=== PATIENT | female | born 1965 | race Caucasian/White ===

== ENCOUNTER → 2017-02-03 | Outpatient (CLI) | payer OTHER ==
--- NOTE | 2017-02-05 07:35 | MM ---
Reason for exam: screening (asymptomatic). Last mammogram was performed 2 years and 7 months ago. History: Patient is postmenopausal. Excisional biopsy of the right breast, October 14, 2000. Excisional biopsy of the right breast, October 14, 2000. Physical Findings: A clinical breast exam by your physician is recommended on an annual basis and results should be correlated with mammographic findings. MG Screening Mammo w CAD Bilateral CC and MLO view(s) were taken. Prior study comparison: July 11, 2014, left breast MG diagnostic mammo LT w CAD. December 31, 2013, bilateral digital screening mammo w/CAD. There are scattered fibroglandular densities. No significant changes when compared with prior studies. ASSESSMENT: Benign, BI-RAD 2 RECOMMENDATION: Routine screening mammogram of both breasts in 1 year.
== END | disposition home or self-care (01) ==
LOC: RADMAMWWP 13:28
PROVIDERS: ATTEND Family Medicine
DX: Z12.31 Encounter for screening mammogram for malignant neoplasm of breast (principal)

== ENCOUNTER 2017-05-05 22:34 | Emergency (ER) | payer OTHER ==
[2017-05-05] MEDS ORDERED: KETOROLAC 30 MG/ML 1 ML VIAL IVP STA (23:11)
[2017-05-05] MEDS ORDERED: SODIUM CHLORIDE 0.9% 1,000 ML IV STA (23:11)
[2017-05-05] MEDS ORDERED: ONDANSETRON 4 MG/2 ML VIAL IVP STA (23:11)
[2017-05-05] MEDS ORDERED: HYDROmorphone 1 MG/ML 1 ML SYRINGE IVP STA (23:11)
[2017-05-05 23:39] LABS: Basophils % (A) 0 %; CH 32.3; CHCM 34.7; Eosinophils # (A) 0.1 k/uL (0-0.7); Eosinophils % (A) 1 %; HCT 38.9 % (34.0-46.0); HDW 2.49; Luc # (Auto) 0.18; Luc % (Auto) 2; Lymphocytes # (A) 0.9 k/uL (1.0-4.8); Lymphocytes % (A) 12 %; MCH 31.2 pg (25.0-35.0); MCHC 33.4 g/dL (31.0-37.0); MCV 93.3 fL (80.0-100.0); Mean Platelet Volume 8.5; Monocytes # (A) 0.5 k/uL (0-1.0); Monocytes % (A) 6 %; Neutrophils % (A) 79 %; RBC 4.17 m/uL (3.80-5.40); RDW 13.8 % (11.5-15.5); WBC 7.6 k/uL (3.8-10.6); WBC (Perox) 7.74
[2017-05-05 23:49] LABS: ALT 31 U/L (9-52); AST 18 U/L (14-36); Alkaline Phosphatase 90 U/L (38-126); Amylase 40 U/L (30-110); Anion Gap 11 mmol/L; Blood Urea Nitrogen 11 mg/dL (7-17); Calcium 9.1 mg/dL (8.4-10.2); Carbon Dioxide 23 mmol/L (22-30); Chloride 106 mmol/L (98-107); Glucose 168 mg/dL (74-99); Non-African American GFR(MDRD) >60 (>60 ml/min/1.73 sqM); Potassium 3.8 mmol/L (3.5-5.1); Sodium 140 mmol/L (137-145); Total Bilirubin 0.8 mg/dL (0.2-1.3); Total Protein 6.5 g/dL (6.3-8.2)
--- NOTE | 2017-05-06 00:34 | XR ---
EXAM: XR Abdomen, 1 View CLINICAL HISTORY: abdominal pain TECHNIQUE: Frontal supine view of the abdomen/pelvis. COMPARISON: 10/04/15 FINDINGS: Lower thorax: Mild to moderate compression defect of several lower thoracic levels. Gastrointestinal tract: Nonspecific bowel gas pattern. No dilation. Bones/joints: Unremarkable. IMPRESSION: No acute findings or substantial change
[2017-05-06 00:57] VITALS: RESP 18
[2017-05-06 01:26] LABS: Appearance,Urine Clear (Clear); Bacteria,Urine Rare /hpf; Bilirubin,Urine Negative (Negative); Glucose,Urine (UA) Negative (Negative); Ketones,Urine Negative (Negative); Leukocyte Esterase,Urine Small (Negative); Mucus,Urine Rare /hpf; Nitrite,Urine Negative (Negative); PH, Urine 6.5 (5.0-8.0); Particle Count 2589; Protein,Urine Negative (Negative); RBC,Urine 3 /hpf (0-5); Specific Gravity,Urine 1.019 (1.001-1.035); Squamous Epithelial Cell,Urine 2 /hpf (0-4); UA Billing (MACRO vs. MICRO) MICRO; WBC,Urine 1 /hpf (0-5)
[2017-05-06] MEDS ORDERED: ONDANSETRON 4 MG ODT STARTER PACK 2 TAB BTL PO STA (01:53)
--- NOTE | 2017-05-06 01:54 | ED ---
Abdominal Pain HPI - General Chief Complaint: Abdominal Pain Stated Complaint: abdominal pain Time Seen by Provider: 05/05/17 22:53 Source: patient, RN notes reviewed, old records reviewed Mode of arrival: wheelchair Limitations: no limitations - History of Present Illness Initial Comments: This is a 52 year old female with CC of abdominal pain after eating ramen noodles this evening. Patient reports taht she has had cold sweats. She denies chest pain, shortness of breath. She reports she feels nauseated, and the pain is reproducible over her abdomen. She states that she still has her gallbladder. She reports that she has these issues once every few months, she as admitted for similiar symptoms a few months ago. Patient reports history of asthma, anxiety, and depression. Surgical history includes fundolipication. - Related Data Home Medications Medication Instructions Recorded Confirmed Omeprazole [PriLOSEC] 20 mg PO BID 03/22/15 05/05/17 Albuterol Inhaler [Ventolin Hfa 2 puff INHALATION RT-Q6H PRN 04/12/15 05/05/17 Inhaler] Fexofenadine HCl [Lazara Allergy] 180 mg PO DAILY 04/18/15 05/05/17 Fluticasone Nasal [place] [Flonase 2 spray EA NOSTRIL DAILY 10/04/15 05/05/17 Nasal [place]] cloNIDine HCL [Catapres] 0.1 mg PO HS 10/04/15 05/05/17 ARIPiprazole [Abilify] 2 mg PO DAILY 02/16/16 05/05/17 Acetaminophen with Codeine 2 tab PO TID PRN 02/16/16 05/05/17 [Acetaminophen with Codeine #3] Beclomethasone Dipropionate [Qvar 2 puff INHALATION RT-DAILY 02/16/16 05/05/17 80 mcg/puff] DULoxetine HCL [Cymbalta] 90 mg PO DAILY 02/16/16 05/05/17 Montelukast [Singulair] 10 mg PO HS 02/16/16 05/05/17 clonazePAM [KlonoPIN] 0.5 mg PO DAILY 02/16/16 05/05/17 Previous Rx's Medication Instructions Recorded Ondansetron Odt [Zofran Odt] 4 mg PO Q12HR PRN #10 tab 05/06/17 Allergies Allergy/AdvReac Type Severity Reaction Status Date / Time pravastatin Allergy SLURRING Verified 05/05/17 23:16 OF SPEECH environmental Allergy Wheezing Uncoded 03/05/16 08:30 Review of Systems ROS Statement: Those systems with pertinent positive or pertinent negative responses have been documented in the HPI. ROS Other: All systems not noted in ROS Statement are negative. Past Medical History Past Medical History: Asthma, COPD, Deep Vein Thrombosis (DVT), GERD/Reflux, Osteoarthritis (OA) Additional Past Medical History / Comment(s): KIDNEY STONE History of Any Multi-Drug Resistant Organisms: None Reported Past Surgical History: Breast Surgery, Hernia Repair, Tubal Ligation Additional Past Surgical History / Comment(s): RIGHT LUMPECTOMY, LEFT KNEE ARTHROSCOPY . left hand surgery,lasik eye sx 2008, HAD LAP EMILY FUNDLOPLICATION. EGD and colonoscopy, Past Anesthesia/Blood Transfusion Reactions: No Reported Reaction Past Psychological History: Depression, PTSD Smoking Status: Former smoker Past Alcohol Use History: None Reported Past Drug Use History: None Reported - Past Family History Mother Family Medical History: Asthma Additional Family Medical History / Comment(s): from ruptued aa General Exam - General Exam Comments Initial Comments: This is a 52 year old female, patient appaers in moderate discomfort. Limitations: no limitations General appearance: alert, in no apparent distress Head exam: Present: atraumatic, normocephalic, normal inspection Eye exam: Present: normal appearance, PERRL, EOMI. Absent: scleral icterus, conjunctival injection, periorbital swelling ENT exam: Present: normal exam, mucous membranes moist Neck exam: Present: normal inspection. Absent: tenderness, meningismus, lymphadenopathy Respiratory exam: Present: normal lung sounds bilaterally. Absent: respiratory distress, wheezes, rales, rhonchi, stridor Cardiovascular Exam: Present: regular rate, normal rhythm, normal heart sounds. Absent: systolic murmur, diastolic murmur, rubs, gallop, clicks GI/Abdominal exam: Present: soft, tenderness (epigastric tenderness. ), normal bowel sounds. Absent: distended, guarding, rebound, rigid Extremities exam: Present: normal inspection, full ROM, normal capillary refill. Absent: tenderness, pedal edema, joint swelling, calf tenderness Back exam: Present: normal inspection Neurological exam: Present: alert, oriented X3, CN II-XII intact Psychiatric exam: Present: normal affect, normal mood Skin exam: Present: warm, dry, intact, normal color. Absent: rash Course Vital Signs 05/05/17 05/06/17 05/06/17 22:47 00:06 00:56 Temperature 99.3 F Pulse Rate 65 78 91 Respiratory 20 16 18 Rate Blood Pressure 155/83 136/73 117/68 O2 Sat by Pulse 98 95 92 L Oximetry 05/06/17 02:00 Temperature 98 F Pulse Rate 84 Respiratory 18 Rate Blood Pressure 123/61 O2 Sat by Pulse Oximetry Medical Decision Making - Medical Decision Making This is a 52 year old female with CC of abdominal pain after eating ramen noodles this evening. Patient reports taht she has had cold sweats. She denies chest pain, shortness of breath. She reports she feels nauseated, and the pain is reproducible over her abdomen. Patient has epigatric tenderness, patient has had no vomiting, and denies diarrhea. Patient given IV fluids, pain medication, and lab work obtained. Patient lab work reviewed, negative for any acute process. Urine specific gravity within normal limits, no signs of severe dehydration. Patient was reevaluated and feeling better. KUB obtained and showed normal gas pattern. Patient will be discharged with nausea medication, and I believe her symptoms are related to indigestion. Patient may have food intolerance to wheat. Patient will be discharged and advised to follow up with PCP. Return parameters discussed. - Lab Data Result diagrams: 05/05/17 23:17 05/05/17 23:17 Lab Results 05/05/17 05/05/17 05/05/17 Range/Units 23:17 23:17 23:17 WBC 7.6 (3.8-10.6) k/uL RBC 4.17 (3.80-5.40) m/uL Hgb 13.0 (11.4-16.0) gm/dL Hct 38.9 (34.0-46.0) % MCV 93.3 (80.0-100.0) fL MCH 31.2 (25.0-35.0) pg MCHC 33.4 (31.0-37.0) g/dL RDW 13.8 (11.5-15.5) % Plt Count 181 (150-450) k/uL Neutrophils % 79 % Lymphocytes % 12 % Monocytes % 6 % Eosinophils % 1 % Basophils % 0 % Neutrophils # 6.0 (1.3-7.7) k/uL Lymphocytes # 0.9 L (1.0-4.8) k/uL Monocytes # 0.5 (0-1.0) k/uL Eosinophils # 0.1 (0-0.7) k/uL Basophils # 0.0 (0-0.2) k/uL Sodium 140 (137-145) mmol/L Potassium 3.8 (3.5-5.1) mmol/L Chloride 106 (98-107) mmol/L Carbon Dioxide 23 (22-30) mmol/L Anion Gap 11 mmol/L BUN 11 (7-17) mg/dL Creatinine 0.70 (0.52-1.04) mg/dL Est GFR (MDRD) Af Amer >60 (>60 ml/min/1.73 sqM) Est GFR (MDRD) Non-Af >60 (>60 ml/min/1.73 sqM) Glucose 168 H (74-99) mg/dL Plasma Lactic Acid Chinedu 0.9 (0.7-2.0) mmol/L Calcium 9.1 (8.4-10.2) mg/dL Total Bilirubin 0.8 (0.2-1.3) mg/dL AST 18 (14-36) U/L ALT 31 (9-52) U/L Alkaline Phosphatase 90 (38-126) U/L Total Protein 6.5 (6.3-8.2) g/dL Albumin 4.0 (3.5-5.0) g/dL Amylase 40 (30-110) U/L Lipase 75 (23-300) U/L Urine Color Urine Appearance (Clear) Urine pH (5.0-8.0) Ur Specific [place] (1.001-1.035) Urine Protein (Negative) Urine Glucose (UA) (Negative) Urine Ketones (Negative) Urine Blood (Negative) Urine Nitrite (Negative) Urine Bilirubin (Negative) Urine Urobilinogen (<2.0) mg/dL Ur Leukocyte Esterase (Negative) Urine RBC (0-5) /hpf Urine WBC (0-5) /hpf Ur Squamous Epith Cells (0-4) /hpf Urine Bacteria (None) /hpf Urine Mucus (None) /hpf 08/15/17 Range/Units 01:01 WBC (3.8-10.6) k/uL RBC (3.80-5.40) m/uL Hgb (11.4-16.0) gm/dL Hct (34.0-46.0) % MCV (80.0-100.0) fL MCH (25.0-35.0) pg MCHC (31.0-37.0) g/dL RDW (11.5-15.5) % Plt Count (150-450) k/uL Neutrophils % % Lymphocytes % % Monocytes % % Eosinophils % % Basophils % % Neutrophils # (1.3-7.7) k/uL Lymphocytes # (1.0-4.8) k/uL Monocytes # (0-1.0) k/uL Eosinophils # (0-0.7) k/uL Basophils # (0-0.2) k/uL Sodium (137-145) mmol/L Potassium (3.5-5.1) mmol/L Chloride (98-107) mmol/L Carbon Dioxide (22-30) mmol/L Anion Gap mmol/L BUN (7-17) mg/dL Creatinine (0.52-1.04) mg/dL Est GFR (MDRD) Af Amer (>60 ml/min/1.73 sqM) Est GFR (MDRD) Non-Af (>60 ml/min/1.73 sqM) Glucose (74-99) mg/dL Plasma Lactic Acid [place] (0.7-2.0) mmol/L Calcium (8.4-10.2) mg/dL Total Bilirubin (0.2-1.3) mg/dL AST (14-36) U/L ALT (9-52) U/L Alkaline Phosphatase (38-126) U/L Total Protein (6.3-8.2) g/dL Albumin (3.5-5.0) g/dL Amylase (30-110) U/L Lipase (23-300) U/L Urine Color Yellow Urine Appearance Clear (Clear) Urine pH 6.5 (5.0-8.0) Ur Specific [place] 1.019 (1.001-1.035) Urine Protein Negative (Negative) Urine Glucose (UA) Negative (Negative) Urine Ketones Negative (Negative) Urine Blood Negative (Negative) Urine Nitrite Negative (Negative) Urine Bilirubin Negative (Negative) Urine Urobilinogen 3.0 (<2.0) mg/dL Ur Leukocyte Esterase Small H (Negative) Urine RBC 3 (0-5) /hpf Urine WBC 1 (0-5) /hpf Ur Squamous Epith Cells 2 (0-4) /hpf Urine Bacteria Rare H (None) /hpf Urine Mucus Rare H (None) /hpf - Radiology Data Radiology results: report reviewed KUB has normal bowel gas pattern. Disposition Clinical Impression: Abdominal pain, Nausea, Gastroenteritis Disposition: HOME SELF-CARE Condition: Good Instructions: Abdominal Pain (ED) Additional Instructions: Advised to follow up with primary care physician. Patient is a clear liquids and bland diet for the next 24 hours. Return to the emergency department if any alarming signs or symptoms occur. Prescriptions: Ondansetron Odt [Zofran Odt] 4 mg PO Q12HR PRN #10 tab PRN Reason: Nausea Referrals: Ariella Espana DO [Primary Care Provider] - 1-2 days Time of Disposition: 01:52
[2017-05-06 02:01] VITALS: BP 123/61; PULSE 84; TEMP 98
== END 2017-05-06 02:00 | disposition home or self-care (01) ==
LOC: EC 22:34
DX: K52.9 Noninfective gastroenteritis and colitis, unspecified (principal); J44.9 Chronic obstructive pulmonary disease, unspecified; K21.9 Gastro-esophageal reflux disease without esophagitis; F32.9 Major depressive disorder, single episode, unspecified; Z87.442 Personal history of urinary calculi; Z98.890 Other specified postprocedural states; Z88.8 Allergy status to other drugs, medicaments and biological substances; Z91.09 Other allergy status, other than to drugs and biological substances; Z79.51 Long term (current) use of inhaled steroids; Z87.891 Personal history of nicotine dependence; Z79.899 Other long term (current) drug therapy
CPT/HCPCS: 36415; 80053; 82150; 83605; 83690; 85025; 81001; 87040; 74000; 99284; 96374; 96375 ×2; 96361 ×2; J2405; J1885; J1170; S0119

== ENCOUNTER 2018-12-23 19:10 | Emergency (ER) | payer MEDICARE, OTHER ==
[2018-12-23 19:38] VITALS: TEMP 98.5
[2018-12-23] MEDS ORDERED: ONDANSETRON 4 MG/2 ML VIAL IVP STA ×2 (20:02→22:17)
[2018-12-23] MEDS ORDERED: MORPHINE SULFATE 2 MG/ML SYRINGE IVP STA (20:35)
[2018-12-23 21:12] LABS: Basophils % (A) 0 %; Eosinophils # (A) 0.1 k/uL (0-0.7); Eosinophils % (A) 1 %; HCT 42.6 % (34.0-46.0); HGB 14.8 gm/dL (11.4-16.0); Lymphocytes # (A) 1.1 k/uL (1.0-4.8); Lymphocytes % (A) 16 %; MCH 30.8 pg (25.0-35.0); MCHC 34.8 g/dL (31.0-37.0); MCV 88.7 fL (80.0-100.0); Mean Platelet Volume 8.9; Monocytes # (A) 0.4 k/uL (0-1.0); Monocytes % (A) 6 %; Neutrophils # (A) 5.2 k/uL (1.3-7.7); Neutrophils % (A) 76 %; Platelet Count 226 k/uL (150-450); RDW 14.4 % (11.5-15.5); WBC 6.8 k/uL (3.8-10.6)
[2018-12-23 21:14] LABS: ALT 36 U/L (9-52); AST 29 U/L (14-36); Albumin 4.3 g/dL (3.5-5.0); Alkaline Phosphatase 94 U/L (38-126); Anion Gap 10 mmol/L; Blood Urea Nitrogen 10 mg/dL (7-17); Calcium 10.1 mg/dL (8.4-10.2); Carbon Dioxide 22 mmol/L (22-30); Chloride 110 mmol/L (98-107); Glucose 148 mg/dL (74-99); Lipase 85 U/L (23-300); Potassium 4.1 mmol/L (3.5-5.1); Sodium 142 mmol/L (137-145); Total Bilirubin 0.8 mg/dL (0.2-1.3); Total Protein 7.1 g/dL (6.3-8.2)
[2018-12-23] MEDS ORDERED: SODIUM CHLORIDE 0.9% 1,000 ML IV STA (21:37)
--- NOTE | 2018-12-23 22:12 | US ---
EXAM: US Abdomen Complete CLINICAL HISTORY: ITS.REASON US Reason: pain with greasy food, n/v TECHNIQUE: Real-time ultrasound of the abdomen (complete) with image documentation. COMPARISON: None FINDINGS: Liver: Measures 17.7 cm, mildly enlarged. Increased echogenicity is suggestive of hepatic steatosis. No focal lesion. Portal vein: Patent with normal direction of flow. Gallbladder: Normal. No wall thickening or pericholecystic fluid. No stone or sludge. Negative sonographic Lemon's sign. Artifact versus echogenicities outside of the gallbladder neck. Biliary tree: No abnormal dilatation. Common bile duct measures 3.3 mm. Pancreas: Pancreas is not well-visualized on this exam. Right kidney: Measures 9.7 cm in length. No hydronephrosis or stone. No mass. Peritoneal space: Normal. No free fluid. IMPRESSION: 1. Mild hepatomegaly with hepatic steatosis. 2. No acute abnormality.
--- NOTE | 2018-12-23 23:14 | ED ---
Nausea/Vomiting/Diarrhea HPI - General Source: patient, family Mode of arrival: ambulatory Limitations: no limitations <Lucille Calabrese - Last Filed: 12/24/18 14:45> <Danika Tapia - Last Filed: 12/24/18 21:49> - General Chief complaint: Nausea/Vomiting/Diarrhea Stated complaint: Vomiting/chills Time Seen by Provider: 12/23/18 20:01 - History of Present Illness Initial comments: 53-year-old female who denies significant past history presenting today for chief complaint of nausea vomiting x 1 day. Patient states that she experiences nausea vomiting diarrhea 3-4 times a year. She states she has been hospitalized for these episodes. Patient states that is mostly vomiting and nausea. She denies chest distress of breath, or dyspnea on exertion. Patient denies history of alcoholism, liver or kidney disease she denies diabetes history of myocardial infarction or CVA. Patient denies anticoagulation therapy. She has history of HIV or atrial fibrillation. She denies history of cancer. Patient states she was a previous smoker however quit in 2011. Patient states her symptoms today are identical to previous episodes of vomiting and nausea. She states the last time was when she was hospitalized in [place]. Patient does smoke marijuana. Patient denies any hematemesis melena hematochezia. Patient states her symptoms today began after eating greasy pizza. She states this episode is mild in comparison with others and presented for evaluation and IV fluids. (Lucille Calabrese) - Related Data Home Medications Medication Instructions Recorded Confirmed Albuterol Inhaler [Ventolin Hfa 2 puff INHALATION RT-Q6H PRN 04/12/15 12/23/18 Inhaler] Montelukast [Singulair] 10 mg PO HS 02/16/16 12/23/18 DULoxetine HCL [Cymbalta] 60 mg PO DAILY 12/23/18 12/23/18 Ergocalciferol (Vitamin D2) 50,000 unit PO Q7D 12/23/18 12/23/18 [Vitamin D2] Mirtazapine [Remeron] 15 mg PO HS 12/23/18 12/23/18 Allergies Allergy/AdvReac Type Severity Reaction Status Date / Time pravastatin AdvReac SLURRING Verified 12/23/18 20:14 OF SPEECH environmental Allergy Wheezing Uncoded 12/23/18 20:15 Review of Systems ROS Other: All systems not noted in ROS Statement are negative. <Lucille Calabrese - Last Filed: 12/24/18 14:45> ROS Other: All systems not noted in ROS Statement are negative. <Danika Tapia P - Last Filed: 12/24/18 21:49> ROS Statement: Those systems with pertinent positive or pertinent negative responses have been documented in the HPI. Past Medical History Past Medical History: Asthma, COPD, Deep Vein Thrombosis (DVT), GERD/Reflux, Osteoarthritis (OA) Additional Past Medical History / Comment(s): KIDNEY STONE History of Any Multi-Drug Resistant Organisms: None Reported Past Surgical History: Breast Surgery, Hernia Repair, Tubal Ligation Additional Past Surgical History / Comment(s): RIGHT LUMPECTOMY, LEFT KNEE ARTHROSCOPY . left hand surgery,lasik eye sx 2008, HAD LAP EMILY FUNDLOPLICATION. EGD and colonoscopy, Past Anesthesia/Blood Transfusion Reactions: No Reported Reaction Past Psychological History: Depression, PTSD Smoking Status: Former smoker Past Alcohol Use History: None Reported Past Drug Use History: None Reported - Past Family History Mother Family Medical History: Asthma Additional Family Medical History / Comment(s): from ruptued aa <Lucille Calabrese - Last Filed: 12/24/18 14:45> General Exam Limitations: no limitations <Lucille Calabrese - Last Filed: 12/24/18 14:45> - General Exam Comments Initial Comments: General: The patient is awake and alert, in no distress Eye: +3 mm pupils are equal, round and reactive to light, extra-ocular movements are intact. No nystagmus. There is normal conjunctiva bilaterally. No signs of icterus. Ears, nose, mouth and throat: There are moist mucous membranes and no oral lesions. Neck: The neck is supple, there is no tenderness or JVD. Cardiovascular: There is a regular rate and rhythm. No murmur, rub or gallop is appreciated. Respiratory: Lungs are clear to auscultation, respirations are non-labored, breath sounds are equal. No wheezes, stridor, rales, or rhonchi. Gastrointestinal: Soft, non-distended, diffusely tender upper abdomen without masses or organomegaly noted. There is no rebound or guarding present. No CVA tenderness. Bowel sounds are unremarkable. Musculoskeletal: Normal ROM, no tenderness. Strength 5/5. Sensation intact. Radial pulses equal bilaterally 2+. Neurological: A&O x 3. CN II-XII intact, There are no obvious motor or sensory deficits. Coordination appears grossly intact. Speech is normal. Skin: Skin is warm and dry and no rashes or lesions are noted. Psychiatric: Cooperative, appropriate mood & affect, normal judgment. (Lucille Calabrese) Course Vital Signs 12/23/18 12/23/18 19:34 23:38 Temperature 98.5 F Pulse Rate 59 L 90 Respiratory 28 H 18 Rate Blood Pressure 146/78 139/81 O2 Sat by Pulse 100 Oximetry Medical Decision Making - Lab Data Result diagrams: 12/23/18 20:45 12/23/18 20:45 <Lucille Calabrese - Last Filed: 12/24/18 14:45> - Lab Data Result diagrams: 12/23/18 20:45 12/23/18 20:45 <Danika Tapia - Last Filed: 12/24/18 21:49> - Medical Decision Making She states she has significant relief of nausea and vomiting with zofran and fluids. Patient said no additional episodes of dry heaving or vomiting while in the emergency department. Patient was given IV fluids. Patient laboratory studies are unremarkable patient has moist mucus membranes. Patient states that she has had this exact symptoms set before and states she has had multiple evaluations with physicians and they dont know the cause. DDX cyclic nausea and vomiting. Possibly due to marijuana use. After discussing the case with attending provider Dr. Tapia we feel patient is stable for discharge without patient symptomatic treatment. Pt has home ODT zofran. Pt is agreeable with discharge with return parameters for persistent or worsening symptoms. (Lucille Calabrese) I was available for consultation in the emergency department. The history and physical exam were done by the midlevel provider. I was consulted for this patient's care. I reviewed the case with the midlevel provider and based on their presentation of the patient, I agree with the assessment, medical decision making and plan of care as documented. (Danika Tapia) - Lab Data Lab Results 12/23/18 12/23/18 Range/Units 20:45 20:45 WBC 6.8 (3.8-10.6) k/uL RBC 4.80 (3.80-5.40) m/uL Hgb 14.8 (11.4-16.0) gm/dL Hct 42.6 (34.0-46.0) % MCV 88.7 (80.0-100.0) fL MCH 30.8 (25.0-35.0) pg MCHC 34.8 (31.0-37.0) g/dL RDW 14.4 (11.5-15.5) % Plt Count 226 (150-450) k/uL Neutrophils % 76 % Lymphocytes % 16 % Monocytes % 6 % Eosinophils % 1 % Basophils % 0 % Neutrophils # 5.2 (1.3-7.7) k/uL Lymphocytes # 1.1 (1.0-4.8) k/uL Monocytes # 0.4 (0-1.0) k/uL Eosinophils # 0.1 (0-0.7) k/uL Basophils # 0.0 (0-0.2) k/uL Sodium 142 (137-145) mmol/L Potassium 4.1 (3.5-5.1) mmol/L Chloride 110 H (98-107) mmol/L Carbon Dioxide 22 (22-30) mmol/L Anion Gap 10 mmol/L BUN 10 (7-17) mg/dL Creatinine 0.79 (0.52-1.04) mg/dL Est GFR (CKD-EPI)AfAm >90 (>60 ml/min/1.73 sqM) Est GFR (CKD-EPI)NonAf 85 (>60 ml/min/1.73 sqM) Glucose 148 H (74-99) mg/dL Calcium 10.1 (8.4-10.2) mg/dL Total Bilirubin 0.8 (0.2-1.3) mg/dL AST 29 (14-36) U/L ALT 36 (9-52) U/L Alkaline Phosphatase 94 (38-126) U/L Total Protein 7.1 (6.3-8.2) g/dL Albumin 4.3 (3.5-5.0) g/dL Lipase 85 (23-300) U/L Disposition Is patient prescribed a controlled substance at d/c from ED?: No Time of Disposition: 23:34 <Lucille Calabrese - Last Filed: 12/24/18 14:45> <Hans Tapiassica P - Last Filed: 12/24/18 21:49> Clinical Impression: Nausea vomiting and diarrhea Disposition: HOME SELF-CARE Condition: Good Instructions (If sedation given, give patient instructions): Acute Nausea and Vomiting (ED), Acute Diarrhea (ED) Additional Instructions: Please use medication as discussed. Please follow-up with family doctor in the next 2 days of symptoms have not improved. Please return to emergency room if the symptoms increase or worsen or for any other concerns. Referrals: Ariella Espana DO [Primary Care Provider] - 1-2 days
[2018-12-23] MEDS ORDERED: METOCLOPRAMIDE 5 MG/ML 2 ML VIAL IVP STA (23:19)
[2018-12-23] MEDS ORDERED: diphenhydrAMINE 50 MG/ML 1 ML VIAL IVP STA (23:19)
[2018-12-24 00:04] VITALS: BP 139/81; PULSE 90; RESP 18
== END 2018-12-24 00:10 | disposition home or self-care (01) ==
LOC: EC 19:10
DX: R11.2 Nausea with vomiting, unspecified (principal); R19.7 Diarrhea, unspecified; R68.83 Chills (without fever); J44.9 Chronic obstructive pulmonary disease, unspecified; F32.9 Major depressive disorder, single episode, unspecified; Z79.899 Other long term (current) drug therapy; Z88.8 Allergy status to other drugs, medicaments and biological substances; Z91.09 Other allergy status, other than to drugs and biological substances; Z87.891 Personal history of nicotine dependence
CPT/HCPCS: 36415; 80053; 83690; 85025; 76705; 99284; 96374; 96376; 96361 ×2; J2405

== ENCOUNTER 2018-12-29 03:44 | Emergency (ER) | payer MEDICARE, OTHER ==
[2018-12-29 03:57] VITALS: TEMP 97.6
[2018-12-29] MEDS ORDERED: ONDANSETRON 4 MG/2 ML VIAL IVP STA ×2 (03:59→07:06)
[2018-12-29] MEDS ORDERED: SODIUM CHLORIDE 0.9% 1,000 ML IV ONE ×2 (04:39→07:05)
[2018-12-29 05:03] LABS: Basophils % (A) 0 %; Eosinophils # (A) 0.1 k/uL (0-0.7); Eosinophils % (A) 1 %; HCT 45.3 % (34.0-46.0); HGB 15.7 gm/dL (11.4-16.0); Lymphocytes # (A) 1.5 k/uL (1.0-4.8); Lymphocytes % (A) 12 %; MCH 30.7 pg (25.0-35.0); MCHC 34.7 g/dL (31.0-37.0); MCV 88.5 fL (80.0-100.0); Mean Platelet Volume 8.9; Monocytes # (A) 0.6 k/uL (0-1.0); Monocytes % (A) 5 %; Neutrophils # (A) 10.6 k/uL (1.3-7.7); Neutrophils % (A) 82 %; Platelet Count 226 k/uL (150-450); RBC 5.12 m/uL (3.80-5.40); RDW 13.1 % (11.5-15.5); WBC 12.9 k/uL (3.8-10.6)
--- NOTE | 2018-12-29 05:14 | ED ---
Nausea/Vomiting/Diarrhea HPI - General Chief complaint: Nausea/Vomiting/Diarrhea Stated complaint: Nausea vomiting Time Seen by Provider: 12/29/18 03:59 Source: patient Mode of arrival: ambulatory Limitations: no limitations - History of Present Illness MD complaint: nausea, vomiting -: hour(s) Description of Vomiting: food contents Associated Abdominal Pain: Yes Location: diffuse Radiation: none Severity: mild Quality: cramping Consistency: intermittent Improves with: none Worsens with: none Associated Symptoms: denies other symptoms - Related Data Home Medications Medication Instructions Recorded Confirmed Albuterol Inhaler [Ventolin Hfa 2 puff INHALATION RT-Q6H PRN 04/12/15 12/29/18 Inhaler] Montelukast [Singulair] 10 mg PO HS 02/16/16 12/29/18 DULoxetine HCL [Cymbalta] 60 mg PO DAILY 12/23/18 12/29/18 Ergocalciferol (Vitamin D2) 50,000 unit PO OSCAR 12/23/18 12/29/18 [Vitamin D2] Mirtazapine [Remeron] 15 mg PO HS 12/23/18 12/29/18 Previous Rx's Medication Instructions Recorded Ondansetron Odt [Zofran ODT] 4 mg PO Q8HR PRN #10 tab 12/29/18 Allergies Allergy/AdvReac Type Severity Reaction Status Date / Time pravastatin AdvReac SLURRING Verified 12/29/18 08:00 OF SPEECH environmental Allergy Wheezing Uncoded 12/29/18 03:57 Review of Systems ROS Statement: Those systems with pertinent positive or pertinent negative responses have been documented in the HPI. ROS Other: All systems not noted in ROS Statement are negative. Constitutional: Denies: fever, chills, weakness Respiratory: Denies: cough, dyspnea Cardiovascular: Denies: chest pain, palpitations, edema, syncope Gastrointestinal: Reports: abdominal pain, nausea, vomiting. Denies: diarrhea, constipation, melena, hematochezia Genitourinary: Denies: dysuria, hematuria Musculoskeletal: Denies: back pain Skin: Denies: rash Neurological: Denies: headache, weakness, numbness Past Medical History Past Medical History: Asthma, COPD, Deep Vein Thrombosis (DVT), GERD/Reflux, Osteoarthritis (OA) Additional Past Medical History / Comment(s): KIDNEY STONE History of Any Multi-Drug Resistant Organisms: None Reported Past Surgical History: Breast Surgery, Hernia Repair, Tubal Ligation Additional Past Surgical History / Comment(s): RIGHT LUMPECTOMY, LEFT KNEE ARTHROSCOPY . left hand surgery,lasik eye sx 2008, HAD LAP EMILY FUNDLOPLICATION. EGD and colonoscopy, Past Anesthesia/Blood Transfusion Reactions: No Reported Reaction Past Psychological History: Depression, PTSD Smoking Status: Former smoker Past Alcohol Use History: None Reported Past Drug Use History: None Reported - Past Family History Mother Family Medical History: Asthma Additional Family Medical History / Comment(s): from ruptued aa General Exam Limitations: no limitations General appearance: alert, in no apparent distress Head exam: Present: atraumatic, normocephalic Eye exam: Present: normal appearance. Absent: scleral icterus, conjunctival injection ENT exam: Present: normal oropharynx Neck exam: Present: normal inspection Respiratory exam: Present: normal lung sounds bilaterally. Absent: respiratory distress, wheezes, rales, rhonchi, stridor Cardiovascular Exam: Present: regular rate, normal rhythm, normal heart sounds Course Vital Signs 12/29/18 03:54 Temperature 97.6 F Pulse Rate 76 Respiratory 20 Rate Blood Pressure 147/93 O2 Sat by Pulse 97 Oximetry Medical Decision Making - Lab Data Result diagrams: 12/29/18 04:17 12/29/18 04:17 Lab Results 12/29/18 12/29/18 12/29/18 Range/Units 04:17 04:17 06:51 WBC 12.9 H (3.8-10.6) k/uL RBC 5.12 (3.80-5.40) m/uL Hgb 15.7 (11.4-16.0) gm/dL Hct 45.3 (34.0-46.0) % MCV 88.5 (80.0-100.0) fL MCH 30.7 (25.0-35.0) pg MCHC 34.7 (31.0-37.0) g/dL RDW 13.1 (11.5-15.5) % Plt Count 226 (150-450) k/uL Neutrophils % 82 % Lymphocytes % 12 % Monocytes % 5 % Eosinophils % 1 % Basophils % 0 % Neutrophils # 10.6 H (1.3-7.7) k/uL Lymphocytes # 1.5 (1.0-4.8) k/uL Monocytes # 0.6 (0-1.0) k/uL Eosinophils # 0.1 (0-0.7) k/uL Basophils # 0.0 (0-0.2) k/uL Sodium 138 (137-145) mmol/L Potassium 3.7 (3.5-5.1) mmol/L Chloride 106 (98-107) mmol/L Carbon Dioxide 19 L (22-30) mmol/L Anion Gap 13 mmol/L BUN 7 (7-17) mg/dL Creatinine 0.78 (0.52-1.04) mg/dL Est GFR (CKD-EPI)AfAm >90 (>60 ml/min/1.73 sqM) Est GFR (CKD-EPI)NonAf 86 (>60 ml/min/1.73 sqM) Glucose 153 H (74-99) mg/dL Calcium 9.8 (8.4-10.2) mg/dL Total Bilirubin 0.9 (0.2-1.3) mg/dL AST 28 (14-36) U/L ALT 41 (9-52) U/L Alkaline Phosphatase 100 (38-126) U/L Total Protein 7.0 (6.3-8.2) g/dL Albumin 4.4 (3.5-5.0) g/dL Amylase 80 (30-110) U/L Lipase 351 H (23-300) U/L Urine Color Light Yellow Urine Appearance Cloudy H (Clear) Urine pH 7.5 (5.0-8.0) Ur Specific [place] 1.013 (1.001-1.035) Urine Protein Negative (Negative) Urine Glucose (UA) Negative (Negative) Urine Ketones Trace H (Negative) Urine Blood Negative (Negative) Urine Nitrite Negative (Negative) Urine Bilirubin Negative (Negative) Urine Urobilinogen <2.0 (<2.0) mg/dL Ur Leukocyte Esterase Negative (Negative) Urine RBC 1 (0-5) /hpf Urine WBC <1 (0-5) /hpf Ur Squamous Epith Cells 4 (0-4) /hpf Urine Mucus Rare H (None) /hpf Disposition Clinical Impression: Abdominal pain Disposition: HOME SELF-CARE Instructions (If sedation given, give patient instructions): Acute Nausea and Vomiting (ED) Prescriptions: Ondansetron Odt [Zofran ODT] 4 mg PO Q8HR PRN #10 tab PRN Reason: Nausea Is patient prescribed a controlled substance at d/c from ED?: No Referrals: Ariella Espana DO [Primary Care Provider] - 1-2 days
[2018-12-29 05:23] LABS: ALT 41 U/L (9-52); AST 28 U/L (14-36); Albumin 4.4 g/dL (3.5-5.0); Alkaline Phosphatase 100 U/L (38-126); Amylase 80 U/L (30-110); Anion Gap 13 mmol/L; Blood Urea Nitrogen 7 mg/dL (7-17); Calcium 9.8 mg/dL (8.4-10.2); Carbon Dioxide 19 mmol/L (22-30); Chloride 106 mmol/L (98-107); Glucose 153 mg/dL (74-99); Lipase 351 U/L (23-300); Potassium 3.7 mmol/L (3.5-5.1); Sodium 138 mmol/L (137-145); Total Bilirubin 0.9 mg/dL (0.2-1.3)
[2018-12-29] MEDS ORDERED: MORPHINE SULFATE 4 MG/ML SYRINGE IV STA (07:06)
[2018-12-29 07:22] LABS: Appearance,Urine Cloudy (Clear); Bilirubin,Urine Negative (Negative); Blood,Urine Negative (Negative); Color,Urine Light Yellow; Glucose,Urine (UA) Negative (Negative); Ketones,Urine Trace (Negative); Leukocyte Esterase,Urine Negative (Negative); Mucus,Urine Rare /hpf; Nitrite,Urine Negative (Negative); PH, Urine 7.5 (5.0-8.0); Protein,Urine Negative (Negative); RBC,Urine 1 /hpf (0-5); Specific Gravity,Urine 1.013 (1.001-1.035); Squamous Epithelial Cell,Urine 4 /hpf (0-4); Urobilinogen,Urine <2.0 mg/dL (<2.0); WBC,Urine <1 /hpf (0-5)
[2018-12-29 10:28] VITALS: BP 104/57; PULSE 78; RESP 18
== END 2018-12-29 10:26 | disposition home or self-care (01) ==
LOC: EC 03:44
DX: R10.9 Unspecified abdominal pain (principal); R11.2 Nausea with vomiting, unspecified; J44.9 Chronic obstructive pulmonary disease, unspecified; F32.9 Major depressive disorder, single episode, unspecified; F43.10 Post-traumatic stress disorder, unspecified; Z86.718 Personal history of other venous thrombosis and embolism; Z87.442 Personal history of urinary calculi; Z87.891 Personal history of nicotine dependence; Z98.51 Tubal ligation status; Z98.890 Other specified postprocedural states; Z79.899 Other long term (current) drug therapy; Z88.8 Allergy status to other drugs, medicaments and biological substances; Z91.048 Other nonmedicinal substance allergy status
CPT/HCPCS: 36415; 80053; 82150; 83690; 85025; 81001; 99284; 96374; 96375; 96376; 96361 ×5; J2270; J2405

== ENCOUNTER 2019-01-19 08:39 | Day surgery (SDC) | payer MEDICARE ==
[2019-01-14 11:47] VITALS: BMI 36.6
[~2019-01-19 08:39] MED LIST: LACTATED RINGERS 1,000 ML IV SCH; LIDOCAINE 1% 20 ML VIAL (10MG/ML) FOR IV START INTRADERMA PRN
[2019-01-19 08:54] VITALS: RESP 16; TEMP 97.9
[2019-01-19] MEDS ORDERED: LIDOCAINE 1% INJ 10MG/ML (20 ML MDV) ONE (09:05)
[2019-01-19] MEDS ORDERED: PROPOFOL 10 MG/ML 20 ML VIAL IV ONE (09:05)
--- NOTE | 2019-01-19 09:09 | P.GSHP ---
History of Present Illness H&P Date: 01/19/19 Chief Complaint: Epigastric pain This a 53-year-old female who presents today for EGD. She's had complaints of epigastric pain. She presents today for EGD to evaluate for gastritis. Past Medical History Past Medical History: Asthma, COPD, Deep Vein Thrombosis (DVT), GERD/Reflux, Osteoarthritis (OA), Sleep Apnea/CPAP/BIPAP Additional Past Medical History / Comment(s): IBS,fatty liver,"problem with pancreas and checking if the gallbladder needs to be removed",KIDNEY STONE,uses cpap History of Any Multi-Drug Resistant Organisms: None Reported Past Surgical History: Breast Surgery, Hernia Repair, Tubal Ligation Additional Past Surgical History / Comment(s): RIGHT LUMPECTOMY, LEFT KNEE ARTHROSCOPY . left hand surgery,lasik eye sx 2008, HAD LAP EMILY FUNDLOPLICATION. EGD and colonoscopy, Past Anesthesia/Blood Transfusion Reactions: No Reported Reaction Additional Past Anesthesia/Blood Transfusion Reaction / Comment(s): no hx blood transfusion Smoking Status: Former smoker - Past Family History Mother Family Medical History: Asthma Additional Family Medical History / Comment(s): from ruptued aa Medications and Allergies Home Medications Medication Instructions Recorded Confirmed Type Albuterol Inhaler [Ventolin Hfa 2 puff INHALATION RT-Q6H PRN 04/12/15 01/19/19 History Inhaler] DULoxetine HCL [Cymbalta] 60 mg PO QAM 12/23/18 01/19/19 History Ergocalciferol (Vitamin D2) 50,000 unit PO OSCAR 12/23/18 01/19/19 History [Vitamin D2] Mirtazapine [Remeron] 15 mg PO HS 12/23/18 01/19/19 History Budesonide [Pulmicort Flexhaler] 2 puff INHALATION BID 01/14/19 01/19/19 History Montelukast Sodium [Singulair] 10 mg PO QAM 01/14/19 01/19/19 History Pantoprazole [Protonix] 40 mg PO DAILY 01/14/19 01/19/19 History Allergies Allergy/AdvReac Type Severity Reaction Status Date / Time pravastatin AdvReac SLURRING Verified 01/19/19 08:49 OF SPEECH environmental Allergy Wheezing Uncoded 01/19/19 08:49 Surgical - Exam Vital Signs Temp Pulse Resp BP Pulse Ox 97.9 F 61 16 131/72 98 01/19/19 08:52 01/19/19 08:52 01/19/19 08:52 01/19/19 08:52 01/19/19 08:52 - General well developed, well nourished, no distress - Eyes PERRL - ENT normal pinna - Neck no masses - Respiratory normal expansion - Cardiovascular Rhythm: regular - Abdomen Abdomen: soft, non tender Assessment and Plan Assessment: Epigastric pain, gastritis. We'll perform EGD.
--- NOTE | 2019-01-19 09:17 | P.OP ---
Date of Procedure: 01/19/19 Preoperative Diagnosis: Epigastric pain Postoperative Diagnosis: Mild antral gastritis Procedure(s) Performed: EGD Anesthesia: MAC Surgeon: Graeme Stewart Pathology: other (Antrum) Condition: stable Disposition: PACU Description of Procedure: The patient's placed on the endoscopy table in the lateral position. She received IV sedation. The gastroscope placed oropharynx and passed into the esophagus and into the stomach. Scope was then placed through the pylorus. First and second portion of the duodenum appeared normal. Scope was then brought back the antrum and this appeared mildly inflamed. A biopsies performed. Scope was unretroflexed and remainder of the stomach appeared normal. There was no significant hiatal hernia. The GE junction was at 40 cm. The distal esophagus appeared normal. The proximal esophagus. Appeared normal. The scope was withdrawn for patient.
[2019-01-19 09:38] VITALS: BP 99/65; PULSE 59
== END 2019-01-19 09:50 | disposition home or self-care (01) ==
LOC: ORWHC2ENDO 08:39
PROVIDERS: ATTEND Surgery
DX: K29.50 Unspecified chronic gastritis without bleeding (principal); J44.9 Chronic obstructive pulmonary disease, unspecified; Z86.718 Personal history of other venous thrombosis and embolism; K21.9 Gastro-esophageal reflux disease without esophagitis; M19.90 Unspecified osteoarthritis, unspecified site; G47.30 Sleep apnea, unspecified; Z99.89 Dependence on other enabling machines and devices; K58.9 Irritable bowel syndrome, unspecified; Z91.048 Other nonmedicinal substance allergy status; F32.9 Major depressive disorder, single episode, unspecified; F43.10 Post-traumatic stress disorder, unspecified; Z87.891 Personal history of nicotine dependence; Z79.51 Long term (current) use of inhaled steroids; Z79.899 Other long term (current) drug therapy; Z88.8 Allergy status to other drugs, medicaments and biological substances
CPT/HCPCS: 88305; 43239; J2001; J2704

== ENCOUNTER 2019-02-04 06:54 | Day surgery (SDC) | payer MEDICARE ==
[2019-02-01 13:09] VITALS: BMI 36.2
[~2019-02-04 06:54] MED LIST changes: +DEXAMETHASONE SOD PHOSPHATE 10 MG/ML 1 ML VIAL IV ONE; +HEPARIN SODIUM,PORCINE 5,000 UNIT/ML 1 ML VIAL SQ ONE; +ONDANSETRON 4 MG/2 ML VIAL IVP ONE; +SCOPOLAMINE 1.5MG/72HR PATCH TRANSDERM ONE; +ceFAZolin IN SWFI 2 GM/20 ML SYRINGE IVP ONE
[2019-02-04] MEDS ORDERED: MIDAZOLAM (PF) 2 MG/2 ML VIAL IV ONE (07:41)
[2019-02-04] MEDS ORDERED: GLYCOPYRROLATE 0.2 MG/ML 2 ML VIAL ONE (07:46)
[2019-02-04] MEDS ORDERED: LIDOCAINE 1% INJ 10MG/ML (20 ML MDV) ONE (07:46)
[2019-02-04] MEDS ORDERED: SUCCINYLCHOLINE CHLORIDE 100 MG/5 ML SYR IV ONE (07:46)
[2019-02-04] MEDS ORDERED: ROCURONIUM BROMIDE 10 MG/ML 10 ML VIAL IV ONE (07:46)
[2019-02-04] MEDS ORDERED: MIDAZOLAM 2 MG/2 ML VIAL ONE (07:46)
[2019-02-04] MEDS ORDERED: PROPOFOL 10 MG/ML 20 ML VIAL IV ONE (07:46)
[2019-02-04] MEDS ORDERED: NEOSTIGMINE 1 MG/ML 10 ML VIAL ONE (07:46)
[2019-02-04] MEDS ORDERED: fentaNYL (PF) 50 MCG/ML 2 ML AMP ONE (07:46)
--- NOTE | 2019-02-04 07:49 | P.GSHP ---
History of Present Illness H&P Date: 02/04/19 Chief Complaint: Right upper quadrant pain This is a 54-year-old female who presents today for laparoscopic cholecystectomy. Patient had complaints of right upper quadrant pain. Her recent HIDA scan shows a diminished ejection fraction consistent with biliary dyskinesia and chronic cholecystitis. Past Medical History Past Medical History: Asthma, COPD, Deep Vein Thrombosis (DVT), GERD/Reflux, Osteoarthritis (OA), Sleep Apnea/CPAP/BIPAP Additional Past Medical History / Comment(s): IBS,fatty liver,"KIDNEY STONE,uses cpap. IBS History of Any Multi-Drug Resistant Organisms: None Reported Past Surgical History: Breast Surgery, Hernia Repair, Orthopedic Surgery, Tubal Ligation Additional Past Surgical History / Comment(s): RIGHT LUMPECTOMY, LEFT KNEE ARTHROSCOPY . left hand surgery,lasik eye sx 2008, HAD LAP EMILY FUNDLOPLICATION. EGD and colonoscopy, Past Anesthesia/Blood Transfusion Reactions: No Reported Reaction Additional Past Anesthesia/Blood Transfusion Reaction / Comment(s): no hx blood transfusion Smoking Status: Former smoker - Past Family History Mother Family Medical History: Asthma Additional Family Medical History / Comment(s): from ruptued aa Medications and Allergies Home Medications Medication Instructions Recorded Confirmed Type Albuterol Inhaler [Ventolin Hfa 2 puff INHALATION RT-Q6H PRN 04/12/15 02/04/19 History Inhaler] DULoxetine HCL [Cymbalta] 60 mg PO QAM 12/23/18 02/04/19 History Ergocalciferol (Vitamin D2) 50,000 unit PO OSCAR 12/23/18 02/04/19 History [Vitamin D2] Mirtazapine [Remeron] 15 mg PO HS 12/23/18 02/04/19 History Budesonide [Pulmicort Flexhaler] 2 puff INHALATION RT-BID 01/14/19 02/04/19 History Montelukast Sodium [Singulair] 10 mg PO QAM 01/14/19 02/04/19 History Pantoprazole [Protonix] 40 mg PO DAILY 01/14/19 02/04/19 History Allergies Allergy/AdvReac Type Severity Reaction Status Date / Time pravastatin AdvReac SLURRING Verified 02/01/19 13:00 OF SPEECH environmental Allergy Wheezing Uncoded 02/01/19 13:00 Surgical - Exam Vital Signs Temp Pulse Resp BP Pulse Ox 98.7 F 83 16 150/107 98 02/04/19 07:04 02/04/19 07:04 02/04/19 07:04 02/04/19 07:04 02/04/19 07:04 - General well developed, well nourished, no distress - Eyes PERRL - ENT normal pinna - Neck no masses - Respiratory normal expansion - Cardiovascular Rhythm: regular - Abdomen Abdomen: soft, non tender Assessment and Plan Assessment: Chronically cholecystitis Report. We'll perform laparoscopic cholecystectomy.
--- NOTE | 2019-02-04 08:03 | P.OP ---
Date of Procedure: 02/04/19 Preoperative Diagnosis: GI bleed Internal and external hemorrhoids Postoperative Diagnosis: Diverticulosis Internal and external hemorrhoids Procedure(s) Performed: Colonoscopy Anesthesia: MAC Surgeon: Graeme Stewart Pathology: none sent Condition: stable Disposition: PACU Description of Procedure: The patient's placed on the endoscopy table in the lateral position. He received IV sedation. Digital rectal exam was performed which revealed internal and external hemorrhoids. Flexible colonoscope was then placed patient anus passed throughout the entire colon. The ileocecal valve was visualized. The cecum, ascending and transverse colon appeared normal. In the descending and sigmoid colon there is moderate diverticular changes. The scope was then brought back the rectum and this appeared normal. Scope was withdrawn from patient and the internal and external hemorrhoids noted. The patient top she will was sent to recovery room stable condition.
[2019-02-04] MEDS ORDERED: BUPIVACAINE-EPI 0.5%-1:200,000 10 ML VIAL SQ ONE (08:23)
[2019-02-04] MEDS ORDERED: KETOROLAC 30 MG/ML 1 ML VIAL IVP ONE (08:56)
[2019-02-04 08:59] VITALS: TEMP 97
[2019-02-04 09:07] VITALS: RESP 16
[2019-02-04] MEDS: HYDROmorphone 0.5 MG/0.5 ML SYRINGE IVP PRN ×2 (09:10→09:15)
[2019-02-04 10:07] VITALS: BP 106/71; PULSE 62
--- NOTE | 2019-02-10 07:26 | P.OP ---
Date of Procedure: 02/04/19 Preoperative Diagnosis: Cholecystitis Postoperative Diagnosis: Cholecystitis Procedure(s) Performed: Laparoscopic cholecystectomy Anesthesia: DAXA Surgeon: Graeme Stewart Estimated Blood Loss (ml): 5 Pathology: other (Gallbladder) Condition: stable Disposition: PACU Description of Procedure: The patient was placed on the operating table. The patient received a general endotracheal tube anesthesia. The patients abdomen was prepped and draped in the usual sterile fashion. Through an infraumbilical stab incision, the fascia of the anterior abdominal wall was grasped with a pair of Kochers and then the Veress needle was placed in the peritoneal cavity. Position of the Veress needle was confirmed with positive drop test. The abdomen was then insufflated. After adequate insufflation, the 10 mm trocar was placed in the peritoneal cavity. Following this the laparoscope was placed in the peritoneal cavity. The patient was placed in the head-up, right side up position and then a 5 mm trocar was placed in the right lateral and right subcostal position under direct visualization. A 8 mm trocar was placed in the epigastric position. The gallbladder was grasped in the fundus and infundibulum. Traction on the gallbladder was placed in the lateral and the cephalad positions. The triangle of Calot was visualized.. The cystic duct was bluntly dissected until the union of the cystic duct and common bile duct was seen. A critical view of safety was achieved. The cystic duct was then divided and sealed with the Harmonic scissors. A PDS Endoloop was then placed throughout the cystic duct stump. The cystic artery divided and sealed with the Harmonic scissors. The gallbladder was then removed from the liver bed using Harmonic scissors. The gallbladder was then extracted through the epigastric port site. Operative field was checked for any bleeding spots and Harmonic scissors was used to coagulate the liver bed. The abdomen was irrigated. The trocars were removed. The skin was closed using interrupted 3-0 Vicryl suture. Dermabond dressing were applied. The patient tolerated the procedure well.
== END 2019-02-04 10:45 | disposition home or self-care (01) ==
LOC: OR 06:54
PROVIDERS: ATTEND Surgery
DX: K81.1 Chronic cholecystitis (principal); J44.9 Chronic obstructive pulmonary disease, unspecified; K21.9 Gastro-esophageal reflux disease without esophagitis; K58.9 Irritable bowel syndrome, unspecified; M19.90 Unspecified osteoarthritis, unspecified site; Z86.718 Personal history of other venous thrombosis and embolism; Z87.442 Personal history of urinary calculi; Z87.891 Personal history of nicotine dependence; Z88.8 Allergy status to other drugs, medicaments and biological substances; F32.9 Major depressive disorder, single episode, unspecified; Z79.899 Other long term (current) drug therapy
CPT/HCPCS: 47562; 88304; J2250 ×2; J1644; J1100; J2710; J2405; J2001; J3010; J1885; J0330; J2704; J1170; J0690

== ENCOUNTER 2020-11-16 13:40 | Emergency (ER) | payer MEDICARE ==
[2020-11-16 13:58] VITALS: TEMP 98.9
[2020-11-16] MEDS ORDERED: ONDANSETRON 4 MG/2 ML VIAL IVP STA (14:10)
[2020-11-16] MEDS ORDERED: HYDROmorphone 0.5 MG/0.5 ML SYRINGE IVP STA (14:14)
[2020-11-16] MEDS ORDERED: SODIUM CHLORIDE 0.9% 1,000 ML IV STA (14:14)
--- NOTE | 2020-11-16 14:36 | ED ---
Nausea/Vomiting/Diarrhea HPI - General Chief complaint: Nausea/Vomiting/Diarrhea Stated complaint: Abd pain,vomiting Time Seen by Provider: 11/16/20 14:02 Source: patient Mode of arrival: wheelchair Limitations: no limitations - History of Present Illness Initial comments: 55-year-old female presenting today for chief complaint of a dull pain vomiting nausea. Patient states every so often she gets these episodes that last from hours to days. She states she's been evaluated at many hospitals and by many specialists including gastroenterology. She states she has had multiple scopes and studies she states she does not have gastroparesis. Patient states for the past day she has had nausea vomiting and abdominal pain. She states it feels consistent with her previous episodes she denies any new characteristics she denies localized pain. Patient states she is dry heaving she states she had a hiatal hernia repairs she hasn't been picking up much. She denies any chest pain shortness of breath fevers she denies diarrhea. Patient is no additional complaints upon arrival patient is dry heaving - Related Data Home Medications Medication Instructions Recorded Confirmed Albuterol Inhaler (Mhu) [Ventolin 2 puff INHALATION RT-Q6H PRN 04/12/15 02/04/19 Hfa Inhaler (Mhu)] DULoxetine HCL [Cymbalta] 60 mg PO QAM 12/23/18 02/04/19 Ergocalciferol (Vitamin D2) 50,000 unit PO OSCAR 12/23/18 02/04/19 [Vitamin D2] Mirtazapine [Remeron] 15 mg PO HS 12/23/18 02/04/19 Budesonide [Pulmicort Flexhaler] 2 puff INHALATION RT-BID 01/14/19 02/04/19 Montelukast Sodium [Singulair] 10 mg PO QAM 01/14/19 02/04/19 Pantoprazole [Protonix] 40 mg PO DAILY 01/14/19 02/04/19 Previous Rx's Medication Instructions Recorded Docusate [Colace] 100 mg PO BID #20 capsule 02/04/19 HYDROcodone/APAP 7.5-325MG [[place] 1 tab PO Q6HR PRN 3 Days #10 tab 02/04/19 7.5-325] Ondansetron Odt [Zofran Odt] 4 mg PO Q8HR PRN 7 Days #21 tab 11/16/20 Allergies Allergy/AdvReac Type Severity Reaction Status Date / Time pravastatin AdvReac SLURRING Verified 02/01/19 13:00 OF SPEECH environmental Allergy Wheezing Uncoded 02/01/19 13:00 Review of Systems ROS Statement: Those systems with pertinent positive or pertinent negative responses have been documented in the HPI. ROS Other: All systems not noted in ROS Statement are negative. Past Medical History Past Medical History: Asthma, COPD, Deep Vein Thrombosis (DVT), GERD/Reflux, O steoarthritis (OA), Sleep Apnea/CPAP/BIPAP Additional Past Medical History / Comment(s): IBS,fatty liver,"KIDNEY STONE,uses cpap. IBS History of Any Multi-Drug Resistant Organisms: None Reported Past Surgical History: Breast Surgery, Hernia Repair, Orthopedic Surgery, Tubal Ligation Additional Past Surgical History / Comment(s): RIGHT LUMPECTOMY, LEFT KNEE ARTHROSCOPY . left hand surgery,lasik eye sx 2008, HAD LAP EMILY FUNDLOPLICATION. EGD and colonoscopy, Past Anesthesia/Blood Transfusion Reactions: No Reported Reaction Additional Past Anesthesia/Blood Transfusion Reaction / Comment(s): no hx blood transfusion Past Psychological History: Depression, PTSD Smoking Status: Never smoker Past Alcohol Use History: None Reported Past Drug Use History: None Reported - Past Family History Mother Family Medical History: Asthma Additional Family Medical History / Comment(s): from ruptued aa General Exam - General Exam Comments Initial Comments: General: The patient is awake and alert, in no distress Eye: Pupils are equal, round and reactive to light, extra-ocular movements are intact. No nystagmus. There is normal conjunctiva bilaterally. No signs of icterus. Ears, nose, mouth and throat: There are moist mucous membranes and no oral lesions. Neck: The neck is supple, there is no tenderness or JVD. Cardiovascular: There is a regular rate and rhythm. No murmur, rub or gallop is appreciated. Respiratory: Lungs are clear to auscultation, respirations are non-labored, breath sounds are equal. No wheezes, stridor, rales, or rhonchi. Gastrointestinal: Soft, non-distended, mild appearing diffuse tenderness,no localized tenderness, without masses or organomegaly noted. There is no rebound or guarding present. Musculoskeletal: Normal ROM, no tenderness. Strength 5/5. Sensation intact. Pu lses equal bilaterally 2+. Neurological: A&O x 3. CN II-XII intact grossly, There are no obvious motor or sensory deficits. Coordination appears grossly intact. Speech is normal. Skin: Skin is warm and dry and no rashes or lesions are noted. Psychiatric: Cooperative, appropriate mood & affect, normal judgment. Limitations: no limitations Course Vital Signs 11/16/20 11/16/20 13:52 16:54 Temperature 98.9 F Pulse Rate 71 59 L Respiratory 22 18 Rate Blood Pressure 139/83 126/76 O2 Sat by Pulse 97 97 Oximetry Medical Decision Making - Medical Decision Making KUB no obstruction. Patient's symptoms controlled she states she is ready to go home patient was hydrated. Laboratory studies stable. Lactic acid within except for limits. I discussed the importance of GI follow-up and return for worsening symptoms patient was discharged with asymptomatic treatment for nausea and vomiting. She states she is controlled discharge she was discharged with her who is to drive her home. Case discussed with Dr. Thomson prior to discharge. - Lab Data Result diagrams: 11/16/20 14:44 11/16/20 14:44 Lab Results 11/16/20 11/16/20 11/16/20 Range/Units 14:44 14:44 14:44 WBC 7.6 (3.8-10.6) k/uL RBC 5.05 (3.80-5.40) m/uL Hgb 16.3 H (11.4-16.0) gm/dL Hct 46.4 H (34.0-46.0) % MCV 91.9 (80.0-100.0) fL MCH 32.3 (25.0-35.0) pg MCHC 35.1 (31.0-37.0) g/dL RDW 12.5 (11.5-15.5) % Plt Count 208 (150-450) k/uL MPV 10.0 Neutrophils % 83 % Lymphocytes % 12 % Monocytes % 3 % Eosinophils % 1 % Basophils % 0 % Neutrophils # 6.2 (1.3-7.7) k/uL Lymphocytes # 0.9 L (1.0-4.8) k/uL Monocytes # 0.3 (0-1.0) k/uL Eosinophils # 0.0 (0-0.7) k/uL Basophils # 0.0 (0-0.2) k/uL Sodium 141 (137-145) mmol/L Potassium 4.1 (3.5-5.1) mmol/L Chloride 108 H (98-107) mmol/L Carbon Dioxide 15 L (22-30) mmol/L Anion Gap 18 mmol/L BUN 11 (7-17) mg/dL Creatinine 0.86 (0.52-1.04) mg/dL Est GFR (CKD-EPI)AfAm 87 (>60 ml/min/1.73 sqM) Est GFR (CKD-EPI)NonAf 76 (>60 ml/min/1.73 sqM) Glucose 168 H (74-99) mg/dL Calcium 10.3 H (8.4-10.2) mg/dL Total Bilirubin 1.0 (0.2-1.3) mg/dL AST 28 (14-36) U/L ALT 26 (4-34) U/L Alkaline Phosphatase 102 (38-126) U/L Total Protein 8.0 (6.3-8.2) g/dL Albumin 5.0 (3.5-5.0) g/dL Urine Color Yellow Urine Appearance Clear (Clear) Urine pH 6.5 (5.0-8.0) Ur Specific [place] 1.018 (1.001-1.035) Urine Protein Trace H (Negative) Urine Glucose (UA) Negative (Negative) Urine Ketones 1+ H (Negative) Urine Blood Negative (Negative) Urine Nitrite Negative (Negative) Urine Bilirubin Negative (Negative) Urine Urobilinogen <2.0 (<2.0) mg/dL Ur Leukocyte Esterase Negative (Negative) Disposition Clinical Impression: Vomiting, Nausea Disposition: HOME SELF-CARE Condition: Good Instructions (If sedation given, give patient instructions): Acute Nausea and Vomiting (ED) Additional Instructions: Please use medication as discussed. Please follow-up with family doctor in the next 2 days. Please return to emergency room if the symptoms increase or worsen or for any other concerns. Prescriptions: Ondansetron Odt [Zofran Odt] 4 mg PO Q8HR PRN 7 Days #21 tab PRN Reason: Nausea Is patient prescribed a controlled substance at d/c from ED?: No Referrals: Ariella Espana DO [Primary Care Provider] - 1-2 days Ruy Olivier MD [STAFF PHYSICIAN] - 1-2 days Time of Disposition: 16:27
[2020-11-16 15:04] LABS: Basophils % (A) 0 %; Eosinophils % (A) 1 %; HCT 46.4 % (34.0-46.0); HGB 16.3 gm/dL (11.4-16.0); Lymphocytes # (A) 0.9 k/uL (1.0-4.8); Lymphocytes % (A) 12 %; MCH 32.3 pg (25.0-35.0); MCHC 35.1 g/dL (31.0-37.0); MCV 91.9 fL (80.0-100.0); Monocytes # (A) 0.3 k/uL (0-1.0); Monocytes % (A) 3 %; Neutrophils # (A) 6.2 k/uL (1.3-7.7); Neutrophils % (A) 83 %; Platelet Count 208 k/uL (150-450); RBC 5.05 m/uL (3.80-5.40); RDW 12.5 % (11.5-15.5); WBC 7.6 k/uL (3.8-10.6)
[2020-11-16 15:05] LABS: Appearance,Urine Clear (Clear); Bilirubin,Urine Negative (Negative); Blood,Urine Negative (Negative); Color,Urine Yellow; Glucose,Urine (UA) Negative (Negative); Ketones,Urine 1+ (Negative); Leukocyte Esterase,Urine Negative (Negative); Nitrite,Urine Negative (Negative); PH, Urine 6.5 (5.0-8.0); Protein,Urine Trace (Negative); Specific Gravity,Urine 1.018 (1.001-1.035); Urobilinogen,Urine <2.0 mg/dL (<2.0)
[2020-11-16 15:18] LABS: Calcium 10.3 mg/dL (8.4-10.2); Potassium 4.1 mmol/L (3.5-5.1)
--- NOTE | 2020-11-16 15:20 | XR ---
EXAMINATION TYPE: XR KUB DATE OF EXAM: 11/16/2020 3:09 PM CLINICAL HISTORY: Abdominal pain. TECHNIQUE: Two Upright KUB images of the abdomen are obtained. COMPARISON: Abdominal x-ray January 21, 2019. FINDINGS: Gas is seen in nondistended stomach bubble with air-fluid level. Scattered gas is seen in n on-distended small and large bowel loops. Single slightly prominent small bowel loop left lower quadr ant. Stable right pelvic prominent calcification or phlebolith. Slight underlying scoliotic curvature redemonstrated. Lung bases remain clear. No pneumoperitoneum. IMPRESSION: Overall nonspecific but favor nonobstructive bowel gas pattern. No significant change from prior.
[2020-11-16] MEDS ORDERED: METOCLOPRAMIDE 5 MG/ML 2 ML VIAL IVP STA (15:40)
[2020-11-16] MEDS ORDERED: LORazepam 2 MG/ML INJ IV STA (15:41)
[2020-11-16 16:55] VITALS: BP 126/76; PULSE 59; RESP 18
== END 2020-11-16 17:04 | disposition home or self-care (01) ==
LOC: EC 13:40
DX: R11.2 Nausea with vomiting, unspecified (principal); J44.9 Chronic obstructive pulmonary disease, unspecified; M19.90 Unspecified osteoarthritis, unspecified site; K21.9 Gastro-esophageal reflux disease without esophagitis; G47.30 Sleep apnea, unspecified; F43.10 Post-traumatic stress disorder, unspecified; F32.9 Major depressive disorder, single episode, unspecified; Z79.51 Long term (current) use of inhaled steroids; Z79.899 Other long term (current) drug therapy; Z88.8 Allergy status to other drugs, medicaments and biological substances; Z91.09 Other allergy status, other than to drugs and biological substances; Z98.51 Tubal ligation status; Z99.89 Dependence on other enabling machines and devices; Z86.718 Personal history of other venous thrombosis and embolism
CPT/HCPCS: 36415; 80053; 85025; 81003; 74018; 99284; 96374; 96375 ×3; 96361; J2060; J2765; J2405; J1170

== ENCOUNTER 2022-04-07 16:46 | Observation (INO) | payer MEDICARE ==
[2022-04-07] MEDS ORDERED: diphenhydrAMINE 50 MG/ML 1 ML VIAL IVP STA (17:46)
[2022-04-07] MEDS ORDERED: ONDANSETRON 4 MG/2 ML VIAL IVP STA (17:46)
[2022-04-07] MEDS ORDERED: SODIUM CHLORIDE 0.9% 1,000 ML IV STA (17:46)
[2022-04-07] MEDS ORDERED: FAMOTIDINE 20 MG/2 ML VIAL IV STA (17:46)
[2022-04-07] MEDS ORDERED: MORPHINE SULFATE 4 MG/ML SYRINGE IV STA (17:46)
[2022-04-07 18:24] LABS: Basophils % (A) 0 %; Eosinophils % (A) 0 %; HCT 47.4 % (34.0-46.0); HGB 16.4 gm/dL (11.4-16.0); Lymphocytes # (A) 1.2 k/uL (1.0-4.8); Lymphocytes % (A) 14 %; MCH 32.6 pg (25.0-35.0); MCHC 34.5 g/dL (31.0-37.0); MCV 94.6 fL (80.0-100.0); Mean Platelet Volume 9.1; Monocytes # (A) 0.4 k/uL (0-1.0); Monocytes % (A) 4 %; Neutrophils # (A) 6.7 k/uL (1.3-7.7); Neutrophils % (A) 79 %; Platelet Count 233 k/uL (150-450); RBC 5.01 m/uL (3.80-5.40); RDW 13.7 % (11.5-15.5); WBC 8.4 k/uL (3.8-10.6)
[2022-04-07 18:33] LABS: ALT 19 U/L (4-34); AST 23 U/L (14-36); African American GFR (CKD) >90 (>60 ml/min/1.73 sqM); Albumin 4.8 g/dL (3.5-5.0); Alkaline Phosphatase 93 U/L (38-126); Anion Gap 12 mmol/L; Blood Urea Nitrogen 12 mg/dL (7-17); Calcium 10.4 mg/dL (8.4-10.2); Carbon Dioxide 18 mmol/L (22-30); Chloride 108 mmol/L (98-107); Glucose 161 mg/dL (74-99); Magnesium 1.8 mg/dL (1.6-2.3); Non-African American GFR(CKD) >90 (>60 ml/min/1.73 sqM); Sodium 138 mmol/L (137-145); Total Bilirubin 1.7 mg/dL (0.2-1.3); Total Protein 7.5 g/dL (6.3-8.2)
[2022-04-07 18:38] LABS: INR 0.9 (<1.2); Partial Thromboplastin Time 20.5 sec (22.0-30.0); Prothrombin Time 10.1 sec (9.0-12.0)
--- NOTE | 2022-04-07 18:52 | XR ---
EXAMINATION TYPE: XR chest 2V DATE OF EXAM: 04/07/2022 COMPARISON: 10/04/2015 HISTORY: Weakness TECHNIQUE: FINDINGS: Heart and mediastinum are normal. Lungs are clear. Diaphragm is normal. Bony thorax is inta ct. IMPRESSION: No active cardiopulmonary disease. Normal heart. No change.
[2022-04-07] MEDS ORDERED: MORPHINE SULFATE 4 MG/ML SYRINGE IV PRN (20:30)
[2022-04-07] MEDS ORDERED: NALOXONE 0.4 MG/ML 1 ML VIAL IV PRN (20:30)
--- NOTE | 2022-04-07 20:33 | ED ---
General Adult HPI - General Chief complaint: Weakness Stated complaint: Abd Pain,Fever,Chills Time Seen by Provider: 04/07/22 17:35 Source: patient, RN notes reviewed, old records reviewed Mode of arrival: ambulatory Limitations: no limitations - History of Present Illness Initial comments: Patient is a 57-year-old female with past medical history remarkable for asthma, COPD, GERD who presents emergency Department complaining of nausea, vomiting, weakness, diaphoresis. Patient also has low heart rate. This is having previously. Has had extensive workup with no known etiology for her symptoms. States symptoms started again this morning. Has had nausea as well as nonbilious nonbloody emesis. Denies chest pain. Denies shortness of breath. H eart rate was in the low 50s and high 40s in triage. Denies lightheadedness. Endorses generalized weakness. She blew she is dehydrated. Denies fevers. Denies Covid exposure. His no other acute complaints at this time. Presents for further evaluation at this time. - Related Data Home Medications Medication Instructions Recorded Confirmed Albuterol Inhaler [Ventolin Hfa 2 puff INHALATION RT-Q6H PRN 04/12/15 04/07/22 Inhaler] DULoxetine HCL [Cymbalta] 60 mg PO BID 12/23/18 04/07/22 Ergocalciferol (Vitamin D2) 50,000 unit PO OSCAR 12/23/18 04/07/22 [Vitamin D2] Montelukast Sodium [Singulair] 10 mg PO DAILY 01/14/19 04/07/22 Atorvastatin [Lipitor] 20 mg PO DAILY 04/07/22 04/07/22 Diclofenac Sodium Gel [Voltaren 1 applic TOPICAL QID PRN 04/07/22 04/07/22 Gel] Diphenoxylate HCl/Atropine 2 tab PO TID 04/07/22 04/07/22 [Lomotil 2.5-0.025 mg Tablet] Omeprazole 20 mg PO DAILY 04/07/22 04/07/22 Topiramate [Topamax] 100 mg PO HS 04/07/22 04/07/22 Ubidecarenone [Coenzyme Q10] 200 mg PO DAILY 04/07/22 04/07/22 hydrOXYzine HCL 25 mg PO TID PRN 04/07/22 04/07/22 predniSONE See Taper PO DIRECTED 04/07/22 04/07/22 valACYclovir HCL [Valtrex] 1,000 mg PO DAILY 04/07/22 04/07/22 Allergies Allergy/AdvReac Type Severity Reaction Status Date / Time pravastatin AdvReac SLURRING Verified 04/07/22 20:48 OF SPEECH environmental Allergy Wheezing Uncoded 04/07/22 17:33 Review of Systems ROS Statement: Those systems with pertinent positive or pertinent negative responses have been documented in the HPI. Review of Systems: CONST: Denies fever EYES: Denies blurry vision ENT: Denies nasal congestion C/V: Denies Chest pain RESP: Denies shortness of breath GI: Denies abdominal pain : Denies dysuria SKIN: Denies rash. MSK: Denies joint pain. NEURO: Endorses weakness ROS Other: All systems not noted in ROS Statement are negative. Past Medical History Past Medical History: Asthma, COPD, Deep Vein Thrombosis (DVT), GERD/Reflux, Osteoarthritis (OA), Sleep Apnea/CPAP/BIPAP Additional Past Medical History / Comment(s): IBS,fatty liver,"KIDNEY STONE,uses cpap. IBS History of Any Multi-Drug Resistant Organisms: None Reported Past Surgical History: Breast Surgery, Hernia Repair, Orthopedic Surgery, Tubal Ligation Additional Past Surgical History / Comment(s): RIGHT LUMPECTOMY, LEFT KNEE ARTHROSCOPY . left hand surgery,lasik eye sx 2009, HAD LAP EMILY FUNDLOPLICATION. EGD and colonoscopy, Past Anesthesia/Blood Transfusion Reactions: No Reported Reaction Additional Past Anesthesia/Blood Transfusion Reaction / Comment(s): no hx blood transfusion Past Psychological History: Depression, PTSD Smoking Status: Never smoker Past Alcohol Use History: None Reported Past Drug Use History: None Reported - Past Family History Mother Family Medical History: Asthma Additional Family Medical History / Comment(s): from ruptued aa General Exam - General Exam Comments Initial Comments: General: Appears in mild distress secondary to nausea and emesis. HEAD: Normal with no signs of head trauma. EYES: PERRLA, EOMI, conjunctiva normal, no discharge. ENT: Hearing grossly intact, normal oropharynx. Dry mucous membranes. RESPIRATORY: Clear breath sounds bilaterally. No wheezes, rales, or rhonchi. C/V: Regular rhythm. Bradycardic.. S1 and S2 auscultated, peripheral pulses 2+ and intact throughout ABD: Abd is soft, nontender, nondistended. No guarding. No peritoneal signs. No rebound tenderness. EXT: Normal range of motion, no obvious deformity SKIN: No rashes or lesions observed on exposed skin. NEURO: Alert and oriented 4. Limitations: no limitations Course Vital Signs 04/07/22 04/07/22 04/07/22 17:31 20:53 23:13 Temperature 97.6 F Pulse Rate 49 L 42 L 51 L Respiratory 20 16 18 Rate Blood Pressure 153/73 164/101 148/90 O2 Sat by Pulse 99 100 98 Oximetry Medical Decision Making - Medical Decision Making Based on the patient's presentation and physical exam, seems like she is having chronic abdominal complaints, including nausea and vomiting and dehydration. Any changes. No abdominal pain. Patient is bradycardic into the 40s. History otherwise weakness. Presents for further evaluation at this time. We'll obtain cardiac workup as well as basic labs. Urine studies. Patient was in agreement this plan. Vital signs otherwise within normal limits other than the bradycardia. EKG shows sinus bradycardia with no signs of acute ischemia. Chest x-ray shows no acute cardio pulmonary process. Laboratory studies are remarkable for a slightly elevated hemoglobin of 16.4. Lactic acid is mildly elevated to 2.1, repeat is 1.7. Troponin is undetectable. Remainder the vital signs are relatively unremarkable. On reevaluation, patient remains bradycardic. The lowest seen on the monitor was 40 bpm. She tends to average upper 40s, low 50s. On evaluation of prior visits, does appear that she is typically high 50s or higher. She states this has happened multiple times over the last few months with no known etiology. I discussed admission for IV fluids as well as hospitalist physician and she was in agreement this plan. I spoke with the admitting team MICHAEL Regan of [facility] who accepted the patient. Covid is still pending at this time. - Lab Data Result diagrams: 04/07/22 17:55 04/07/22 17:55 Lab Results 04/07/22 04/07/22 04/07/22 Range/Units 17:55 17:55 17:55 WBC 8.4 (3.8-10.6) k/uL RBC 5.01 (3.80-5.40) m/uL Hgb 16.4 H (11.4-16.0) gm/dL Hct 47.4 H (34.0-46.0) % MCV 94.6 (80.0-100.0) fL MCH 32.6 (25.0-35.0) pg MCHC 34.5 (31.0-37.0) g/dL RDW 13.7 (11.5-15.5) % Plt Count 233 (150-450) k/uL MPV 9.1 Neutrophils % 79 % Lymphocytes % 14 % Monocytes % 4 % Eosinophils % 0 % Basophils % 0 % Neutrophils # 6.7 (1.3-7.7) k/uL Lymphocytes # 1.2 (1.0-4.8) k/uL Monocytes # 0.4 (0-1.0) k/uL Eosinophils # 0.0 (0-0.7) k/uL Basophils # 0.0 (0-0.2) k/uL PT 10.1 (9.0-12.0) sec INR 0.9 (<1.2) APTT 20.5 L (22.0-30.0) sec Sodium 138 (137-145) mmol/L Potassium 4.0 (3.5-5.1) mmol/L Chloride 108 H (98-107) mmol/L Carbon Dioxide 18 L (22-30) mmol/L Anion Gap 12 mmol/L BUN 12 (7-17) mg/dL Creatinine 0.72 (0.52-1.04) mg/dL Est GFR (CKD-EPI)AfAm >90 (>60 ml/min/1.73 sqM) Est GFR (CKD-EPI)NonAf >90 (>60 ml/min/1.73 sqM) Glucose 161 H (74-99) mg/dL Lactic Ac Sepsis Rflx Plasma Lactic Acid Chinedu (0.7-2.0) mmol/L Calcium 10.4 H (8.4-10.2) mg/dL Magnesium 1.8 (1.6-2.3) mg/dL Total Bilirubin 1.7 H (0.2-1.3) mg/dL AST 23 (14-36) U/L ALT 19 (4-34) U/L Alkaline Phosphatase 93 (38-126) U/L Troponin I (0.000-0.034) ng/mL Total Protein 7.5 (6.3-8.2) g/dL Albumin 4.8 (3.5-5.0) g/dL 04/07/22 04/07/22 04/07/22 Range/Units 17:55 17:55 18:56 WBC (3.8-10.6) k/uL RBC (3.80-5.40) m/uL Hgb (11.4-16.0) gm/dL Hct (34.0-46.0) % MCV (80.0-100.0) fL MCH (25.0-35.0) pg MCHC (31.0-37.0) g/dL RDW (11.5-15.5) % Plt Count (150-450) k/uL MPV Neutrophils % % Lymphocytes % % Monocytes % % Eosinophils % % Basophils % % Neutrophils # (1.3-7.7) k/uL Lymphocytes # (1.0-4.8) k/uL Monocytes # (0-1.0) k/uL Eosinophils # (0-0.7) k/uL Basophils # (0-0.2) k/uL PT (9.0-12.0) sec INR (<1.2) APTT (22.0-30.0) sec Sodium (137-145) mmol/L Potassium (3.5-5.1) mmol/L Chloride (98-107) mmol/L Carbon Dioxide (22-30) mmol/L Anion Gap mmol/L BUN (7-17) mg/dL Creatinine (0.52-1.04) mg/dL Est GFR (CKD-EPI)AfAm (>60 ml/min/1.73 sqM) Est GFR (CKD-EPI)NonAf (>60 ml/min/1.73 sqM) Glucose (74-99) mg/dL Lactic Ac Sepsis Rflx Y Plasma Lactic Acid Chinedu 2.1 H* (0.7-2.0) mmol/L Calcium (8.4-10.2) mg/dL Magnesium (1.6-2.3) mg/dL Total Bilirubin (0.2-1.3) mg/dL AST (14-36) U/L ALT (4-34) U/L Alkaline Phosphatase (38-126) U/L Troponin I <0.012 (0.000-0.034) ng/mL Total Protein (6.3-8.2) g/dL Albumin (3.5-5.0) g/dL - EKG Data -: EKG Interpreted by Me EKG Comments: 12-lead Electrocardiogram Interpretation Note EKG was reviewed and interpreted by myself. 12-lead ECG performed at 1848 is interpreted by me as revealing sinus bradycardia at a rate of 44 beats per minute. [place] is normal. MA interval is 131 ms, QRS duration is 94 ms, QTc is 450 ms.. There were no ST or T wave abnormalities to suggest myocardial ischemia or injury. R wave progression across the precordium was satisfactory. By my interpretation this EKG is non-diagnostic for acute ischemia. Disposition Clinical Impression: Bradycardia, Nausea & vomiting Disposition: ADMITTED IP TO THIS HOSP Condition: Stable Time of Disposition: 20:15
[2022-04-07 23:14] VITALS: RESP 18
[2022-04-07] MEDS: ONDANSETRON 4 MG/2 ML VIAL IVP PRN (23:18)
[2022-04-08] MEDS: HEPARIN SODIUM,PORCINE/PF 5,000 UNIT/0.5 ML SYRINGE SQ SCH ×2 (01:31→08:04)
[2022-04-08] MEDS: SODIUM CHLORIDE 0.9% 1,000 ML IV SCH ×2 (01:31→08:02)
[2022-04-08] MEDS: ONDANSETRON 4 MG/2 ML VIAL IVP PRN (06:51)
[2022-04-08 06:54] LABS: Basophils % (A) 0 %; Eosinophils % (A) 0 %; HCT 44.4 % (34.0-46.0); HGB 14.1 gm/dL (11.4-16.0); Lymphocytes # (A) 0.9 k/uL (1.0-4.8); Lymphocytes % (A) 9 %; MCHC 31.8 g/dL (31.0-37.0); MCV 97.5 fL (80.0-100.0); Mean Platelet Volume 9.1; Monocytes # (A) 0.4 k/uL (0-1.0); Monocytes % (A) 4 %; Neutrophils % (A) 85 %; Platelet Count 209 k/uL (150-450); RBC 4.55 m/uL (3.80-5.40); RDW 13.4 % (11.5-15.5); WBC 9.4 k/uL (3.8-10.6)
[2022-04-08 07:04] LABS: African American GFR (CKD) >90 (>60 ml/min/1.73 sqM); Anion Gap 8 mmol/L; Blood Urea Nitrogen 14 mg/dL (7-17); Carbon Dioxide 20 mmol/L (22-30); Chloride 111 mmol/L (98-107); Glucose 155 mg/dL (74-99); Magnesium 1.8 mg/dL (1.6-2.3); Non-African American GFR(CKD) 88 (>60 ml/min/1.73 sqM); Potassium 4.2 mmol/L (3.5-5.1); Sodium 139 mmol/L (137-145)
[2022-04-08] MEDS ORDERED: hydrOXYzine HCL 25 MG TAB PO PRN (08:34)
[2022-04-08] MEDS ORDERED: NON FORMULARY DRUG (Ubidecarenone [Coenzyme Q10] 200 MG Capsule) PO SCH (09:00)
[2022-04-08] MEDS ORDERED: NON FORMULARY DRUG (Omeprazole [Omeprazole] 20 MG Capsule.Dr) PO SCH (09:00)
[2022-04-08] MEDS ORDERED: DULoxetine HCL 60 MG CAPSULE.DR PO SCH (09:00)
[2022-04-08] MEDS ORDERED: MONTELUKAST 10 MG TAB PO SCH (09:00)
[2022-04-08] MEDS ORDERED: ATORVASTATIN 20 MG TAB PO SCH (09:00)
[2022-04-08] MEDS ORDERED: PANTOPRAZOLE 40 MG/10 ML VIAL IV SCH (09:00)
--- NOTE | 2022-04-08 10:22 | P.CRDCN ---
History of Present Illness History of present illness: HISTORY OF PRESENTING ILLNESS This is a pleasant 57-year-old female with a past medical history of IBS, GERD, asthma, former smoker, dyslipidemia, hiatal hernia, cholecystectomy. 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 We have been asked to see in consultation for bradycardia. Patient presents emergency department with episode of nausea, vomiting, abdominal pain, diaphoresis, some lightheadedness. She states she has had these episodes for 20+ years. She has these episodes of symptoms about once a month, sometimes they last only 24-48 hours and other times 3-4 days. She endorses decreased appetite. She denies any chest pain, palpitations, syncope or near syncope. Food does not aggravate or alleviate the pain. Denies any recent illness, cough fever or chills. She denies any changes or additions to medications or supplements. She has been told her heart rate is low before but w as told it was a normal response for her since she was sick in the hospital with possible flu years ago. She denies any history of CAD, NH, stroke, diabetes or hypertension. She states she had a recent rash and was started on steriods. She denies any other changes to medications or taking new supplements. Denies any current tobacco use, illicit drug use or alcohol use. DIAGNOSTICS EKG reveals sinus bradycardia, heart rate 44, no significant ST-abnormalities noted. Telemetry tracings indicate sinus rhythm HR 49-60s, no significant bradycardia or pauses noted. Chest xray no acute cardiopulmonary process Most recent echocardiogram 03/2017 revealed EF 55%, mild concentric LVH, trace aortic regurgitation, mild mitral regurgitation Laboratory reviewed, WBC 8.4, hemoglobin 16.4, platelets 233, sodium 138, potassium 4.0, BUN 12, serum 0.7, lactate 2.1, repeat 1.7, troponin negative 2, magnesium 1.8, COVID-19 negative Current medications include hydroxyzine, prednisone, Topamax, Valtrex, atorvastatin 20 mg daily, singular, Cymbalta, vitamin D, omeprazole, Lomotil REVIEW OF SYSTEMS At the time of my exam: CONSTITUTIONAL: Denies fever or chills. CARDIOVASCULAR: Denies chest pain, shortness of breath, orthopnea, PND or palpitations. RESPIRATORY: Denies cough. GASTROINTESTINAL:Reports abdominal pain, diarrhea, nausea and vomiting. MUSCULOSKELETAL: Denies myalgias. NEUROLOGIC: Denies numbness, tingling, headacbe or weakness. ENDOCRINE: Denies fatigue, weight change, polydipsia or polyurina. GENITOURINARY: Denies burning, hematuria or urgency with micturation. HEMATOLOGIC: Denies history of anemia or bleeding. PHYSICAL EXAMINATION Blood pressure 128/77, heart rate 58, afebrile, oxygen saturation 96% on room air CONSTITUTIONAL: No apparent distress. HEENT: Head is normocephalic. Pupils are equal, round. Sclerae anicteric. Mucous membranes of the mouth are moist. No JVD. No carotid bruit. CHEST EXAMINATION: Lungs are clear to auscultation. No chest wall tenderness is noted on palpation or with deep breathing. HEART EXAMINATION: Regular rate and rhythm. S1, S2 heard. No murmurs, gallops or rub. ABDOMEN: Soft, nontender. Positive bowel sounds. EXTREMITIES: 2+ peripheral pulses, no lower extremity edema and no calf tenderness. NEUROLOGIC EXAMINATION: Patient is awake, alert and oriented x3. ASSESSMENT Abdominal pain, nausea, vomiting Sinus bradycardia History of IBS History of GERD History of Asthma History of hiatal hernia History of cholecystectomy Dyslipidemia PLAN No significant bradycardia or pauses noted on telemetry, no indication for pacemaker implantation, heart rates have improved Obtain 2D echocardiogram and doppler study to assess cardiac structure and function. Check cortisol level Recommend event monitor for 2 weeks Monitor on telemetry If echocardiogram with no acute findings, no significant findings on telemetry, no further inpatient workup from a cardiology perspective recommend event monitor on discharge Nurse practitioner note has been reviewed by physician. Signing provider agrees with the documented findings, assessment, and plan of care. Past Medical History Past Medical History: Asthma, COPD, Deep Vein Thrombosis (DVT), GERD/Reflux, Osteoarthritis (OA), Sleep Apnea/CPAP/BIPAP Additional Past Medical History / Comment(s): IBS,fatty liver,"KIDNEY STONE,uses cpap. IBS History of Any Multi-Drug Resistant Organisms: None Reported Past Surgical History: Breast Surgery, Hernia Repair, Orthopedic Surgery, Tubal Ligation Additional Past Surgical History / Comment(s): RIGHT LUMPECTOMY, LEFT KNEE ARTHROSCOPY . left hand surgery,lasik eye sx 2008, HAD LAP EMILY FUNDLOPLICATI ON. EGD and colonoscopy, Past Anesthesia/Blood Transfusion Reactions: No Reported Reaction Additional Past Anesthesia/Blood Transfusion Reaction / Comment(s): no hx blood transfusion Past Psychological History: Depression, PTSD Additional Psychological History / Comment(s): dx agoraphobia Smoking Status: Never smoker Past Alcohol Use History: None Reported Additional Past Alcohol Use History / Comment(s): started smoking at age 10 smoked 1 ppd-off and on then quit 2011 Past Drug Use History: None Reported - Past Family History Mother Family Medical History: Asthma Additional Family Medical History / Comment(s): from ruptued aa Medications and Allergies Home Medications Medication Instructions Recorded Confirmed Type Albuterol Inhaler [Ventolin Hfa 2 puff INHALATION RT-Q6H PRN 04/12/15 04/07/22 History Inhaler] DULoxetine HCL [Cymbalta] 60 mg PO BID 12/23/18 04/07/22 History Ergocalciferol (Vitamin D2) 50,000 unit PO OSCAR 12/23/18 04/07/22 History [Vitamin D2] Montelukast Sodium [Singulair] 10 mg PO DAILY 01/14/19 04/07/22 History Atorvastatin [Lipitor] 20 mg PO DAILY 04/07/22 04/07/22 History Diclofenac Sodium Gel [Voltaren 1 applic TOPICAL QID PRN 04/07/22 04/07/22 History Gel] Diphenoxylate HCl/Atropine 2 tab PO TID 04/07/22 04/07/22 History [Lomotil 2.5-0.025 mg Tablet] Omeprazole 20 mg PO DAILY 04/07/22 04/07/22 History Topiramate [Topamax] 100 mg PO HS 04/07/22 04/07/22 History Ubidecarenone [Coenzyme Q10] 200 mg PO DAILY 04/07/22 04/07/22 History hydrOXYzine HCL 25 mg PO TID PRN 04/07/22 04/07/22 History predniSONE See Taper PO DIRECTED 04/07/22 04/07/22 History valACYclovir HCL [Valtrex] 1,000 mg PO DAILY 04/07/22 04/07/22 History Allergies Allergy/AdvReac Type Severity Reaction Status Date / Time pravastatin AdvReac SLURRING Verified 04/07/22 20:48 OF SPEECH environmental Allergy Wheezing Uncoded 04/07/22 17:33 Physical Exam Vitals: Vital Signs Temp Pulse Pulse Resp BP BP Pulse Ox 04/08/22 07:57 99.1 F 72 18 160/81 99 04/08/22 05:57 58 L 18 128/77 96 04/07/22 23:13 51 L 18 148/90 98 04/07/22 20:53 42 L 16 164/101 100 04/07/22 17:31 97.6 F 49 L 20 153/73 99 Intake and Output 04/07/22 04/08/22 04/08/22 22:59 06:59 14:59 Intake Total 120 Balance 120 Intake: Oral 120 Other: Weight 76.204 kg 76.204 kg Results 04/08/22 06:28 04/08/22 06:28 Cardiac Enzymes 04/07/22 04/07/22 04/08/22 Range/Units 17:55 17:55 06:28 AST 23 (14-36) U/L Troponin I <0.012 <0.012 (0.000-0.034) ng/mL Coagulation 04/07/22 Range/Units 17:55 PT 10.1 (9.0-12.0) sec APTT 20.5 L (22.0-30.0) sec CBC 04/07/22 04/08/22 Range/Units 17:55 06:28 WBC 8.4 9.4 (3.8-10.6) k/uL RBC 5.01 4.55 (3.80-5.40) m/uL Hgb 16.4 H 14.1 (11.4-16.0) gm/dL Hct 47.4 H 44.4 (34.0-46.0) % Plt Count 233 209 (150-450) k/uL Comprehensive Metabolic Panel 04/07/22 04/08/22 Range/Units 17:55 06:28 Sodium 138 139 (137-145) mmol/L Potassium 4.0 4.2 (3.5-5.1) mmol/L Chloride 108 H 111 H (98-107) mmol/L Carbon Dioxide 18 L 20 L (22-30) mmol/L BUN 12 14 (7-17) mg/dL Creatinine 0.72 0.75 (0.52-1.04) mg/dL Glucose 161 H 155 H (74-99) mg/dL Calcium 10.4 H 9.0 (8.4-10.2) mg/dL AST 23 (14-36) U/L ALT 19 (4-34) U/L Alkaline Phosphatase 93 (38-126) U/L Total Protein 7.5 (6.3-8.2) g/dL Albumin 4.8 (3.5-5.0) g/dL Current Medications Generic Name Dose Route Start Last Admin Trade Name Freq PRN Reason Stop Dose Admin Atorvastatin Calcium 20 mg 04/08/22 09:00 04/08/22 09:31 Atorvastatin 20 Mg Tab PO 20 mg DAILY LIBBY Administration Duloxetine HCl 60 mg 04/08/22 09:00 04/08/22 09:31 Duloxetine Hcl 60 Mg Capsule.Dr PO 60 mg BID LIBBY Administration Heparin Sodium (Porcine) 5,000 unit 04/08/22 00:00 04/08/22 08:04 Heparin Sodium,Porcine/Pf 5,000 Unit/0.5 Ml Syringe SQ 5,000 unit Q8HR LIBBY Administration Hydroxyzine HCl 25 mg 04/08/22 08:34 Hydroxyzine Hcl 25 Mg Tab PO TID PRN Itching Sodium Chloride 1,000 mls @ 130 mls/hr 04/07/22 20:30 04/08/22 08:02 Saline 0.9% IV 130 mls/hr .[id number] LIBBY Administration Montelukast Sodium 10 mg 04/08/22 09:00 04/08/22 09:30 Montelukast 10 Mg Tab PO 10 mg DAILY LIBBY Administration Morphine Sulfate 4 mg 04/07/22 20:30 04/08/22 08:01 Morphine Sulfate 4 Mg/Ml Syringe IV 4 mg Q4HR PRN Administration Severe Pain Naloxone HCl 0.2 mg 04/07/22 20:30 Naloxone 0.4 Mg/Ml 1 Ml Vial IV Q2M PRN Opioid Reversal Ondansetron HCl 4 mg 04/07/22 20:30 04/08/22 06:51 Ondansetron 4 Mg/2 Ml Vial IVP 4 mg Q8HR PRN Administration Nausea And Vomiting Pantoprazole Sodium 40 mg 04/08/22 09:00 04/08/22 08:03 Pantoprazole 40 Mg/10 Ml Vial IV 40 mg DAILY LIBBY Administration Topiramate 100 mg 04/08/22 21:00 Topiramate 100 Mg Tab PO HS LIBBY Intake and Output 04/07/22 04/08/22 04/08/22 22:59 06:59 14:59 Intake Total 120 Balance 120 Intake: Oral 120 Other: Weight 76.204 kg 76.204 kg Patient Weight 04/09/22 06:59 Weight 76.204 kg 04/08/22 06:28 04/08/22 06:28
--- NOTE | 2022-04-08 13:59 | P.HPIM ---
History of Present Illness H&P Date: 04/01/22 Chief Complaint: Nausea vomiting, bradycardia History and Physical and Discharge Summary This is a 57-year-old female with past medical history of Emily, asthma, COPD, deep vein thrombosis, GERD, osteoarthritis, sleep apnea, IBS, fatty liver, kidn ey stones, depression and multiple other medical issues presented with complaints of nausea, vomiting 1 with subsequent bradycardia discovered on admission. Reports she has had these symptoms intermittently throughout childhood, worsened into adulthood, occurring recently on a monthly basis. Poss ible increased in severity since hiatal hernia repair .Most recent episode initiated Friday, felt "off" developed nausea. Denies near-syncope or syncope .denies chest pain, palpitations .denies shortness of breath Heart rates noted in the low 40s on admission, subsided. Chest x-ray nonacute, EKG sinus bradycardia. Afebrile, normal WBC, hemoglobin 14.1, platelets 209 sodium 139, potassium 4.2, bicarb 20, renal function stable, blood sugars controlled, lactic acid 2.1 on admission down to 1.7 with IV fluid hydration magnesium 1.8, total bili 1.7, torres virus not detected. Review of Systems ROS Statement: Those systems with pertinent positive or pertinent negative responses have been documented in the HPI. ROS Other: All systems not noted in ROS Statement are negative. Past Medical History Past Medical History: Asthma, COPD, Deep Vein Thrombosis (DVT), GERD/Reflux, Osteoarthritis (OA), Sleep Apnea/CPAP/BIPAP Additional Past Medical History / Comment(s): IBS,fatty liver,"KIDNEY STONE,uses cpap. IBS History of Any Multi-Drug Resistant Organisms: None Reported Past Surgical History: Breast Surgery, Hernia Repair, Orthopedic Surgery, Tubal Ligation Additional Past Surgical History / Comment(s): RIGHT LUMPECTOMY, LEFT KNEE ARTHROSCOPY . left hand surgery,lasik eye sx 2009, HAD LAP EMILY FUNDLOPLICATION. EGD and colonoscopy, Past Anesthesia/Blood Transfusion Reactions: No Reported Reaction Additional Past Anesthesia/Blood Transfusion Reaction / Comment(s): no hx blood transfusion Past Psychological History: Depression, PTSD Additional Psychological History / Comment(s): dx agoraphobia Smoking Status: Never smoker Past Alcohol Use History: None Reported Additional Past Alcohol Use History / Comment(s): started smoking at age 10 smoked 1 ppd-off and on then quit 2011 Past Drug Use History: None Reported - Past Family History Mother Family Medical History: Asthma Additional Family Medical History / Comment(s): from ruptued aa Medications and Allergies Home Medications Medication Instructions Recorded Confirmed Type Albuterol Inhaler [Ventolin Hfa 2 puff INHALATION RT-Q6H PRN 04/12/15 04/07/22 History Inhaler] DULoxetine HCL [Cymbalta] 60 mg PO BID 12/23/18 04/07/22 History Ergocalciferol (Vitamin D2) 50,000 unit PO OSCAR 12/23/18 04/07/22 History [Vitamin D2] Montelukast Sodium [Singulair] 10 mg PO DAILY 01/14/19 04/07/22 History Atorvastatin [Lipitor] 20 mg PO DAILY 04/07/22 04/07/22 History Diclofenac Sodium Gel [Voltaren 1 applic TOPICAL QID PRN 04/07/22 04/07/22 History Gel] Diphenoxylate HCl/Atropine 2 tab PO TID 04/07/22 04/07/22 History [Lomotil 2.5-0.025 mg Tablet] Omeprazole 20 mg PO DAILY 04/07/22 04/07/22 History Topiramate [Topamax] 100 mg PO HS 04/07/22 04/07/22 History Ubidecarenone [Coenzyme Q10] 200 mg PO DAILY 04/07/22 04/07/22 History hydrOXYzine HCL 25 mg PO TID PRN 04/07/22 04/07/22 History predniSONE See Taper PO DIRECTED 04/07/22 04/07/22 History valACYclovir HCL [Valtrex] 1,000 mg PO DAILY 04/07/22 04/07/22 History Allergies Allergy/AdvReac Type Severity Reaction Status Date / Time pravastatin AdvReac SLURRING Verified 04/07/22 20:48 OF SPEECH environmental Allergy Wheezing Uncoded 04/07/22 17:33 Physical Exam Vitals: Vital Signs Temp Pulse Pulse Resp BP BP Pulse Ox 04/08/22 07:57 99.1 F 72 18 160/81 99 04/08/22 05:57 58 L 18 128/77 96 04/07/22 23:13 51 L 18 148/90 98 04/07/22 20:53 42 L 16 164/101 100 04/07/22 17:31 97.6 F 49 L 20 153/73 99 Intake and Output 04/07/22 04/08/22 04/08/22 22:59 06:59 14:59 Intake Total 120 Balance 120 Intake: Oral 120 Other: Weight 76.204 kg 76.204 kg PHYSICAL EXAM: VITAL SIGNS: As above GENERAL: Sitting up in bed, no acute distress HEENT: Conjunctivae normal. eyes normal. NECK: No JVD. No thyroid enlargement. No LNs CARDIOVASCULAR: S1, S2 regular.No murmur RESPIRATION: Breath sounds diminished in the bases. No rhonchi or crackles. No bronchial breathing. ABDOMEN: Soft, nontender . No guarding. no masses palpable. No ascites, No hepatosplenomegaly.Bowel sounds heard. LEGS: No edema. no swelling PSYCHIATRY: Alert and oriented X3, mood and affect normal. NERVOUS SYSTEM: Cranial N 2-12 grossly normal. Moves all 4 limbs. No focal deficits. Strength and sensation grossly intact.. Skin: Warm and dry,, no rash Results CBC & Chem 7: 04/08/22 06:28 04/08/22 06:28 Labs: Abnormal Lab Results - Last 24 Hours (Table) 04/07/22 04/07/22 04/07/22 Range/Units 17:55 17:55 17:55 Hgb 16.4 H (11.4-16.0) gm/dL Hct 47.4 H (34.0-46.0) % Neutrophils # (1.3-7.7) k/uL Lymphocytes # (1.0-4.8) k/uL APTT 20.5 L (22.0-30.0) sec Chloride 108 H (98-107) mmol/L Carbon Dioxide 18 L (22-30) mmol/L Glucose 161 H (74-99) mg/dL Plasma Lactic Acid Chinedu (0.7-2.0) mmol/L Calcium 10.4 H (8.4-10.2) mg/dL Total Bilirubin 1.7 H (0.2-1.3) mg/dL 04/07/22 04/08/22 04/08/22 Range/Units 17:55 06:28 06:28 Hgb (11.4-16.0) gm/dL Hct (34.0-46.0) % Neutrophils # 8.0 H (1.3-7.7) k/uL Lymphocytes # 0.9 L (1.0-4.8) k/uL APTT (22.0-30.0) sec Chloride 111 H (98-107) mmol/L Carbon Dioxide 20 L (22-30) mmol/L Glucose 155 H (74-99) mg/dL Plasma Lactic Acid Chinedu 2.1 H* (0.7-2.0) mmol/L Calcium (8.4-10.2) mg/dL Total Bilirubin (0.2-1.3) mg/dL Thrombosis Risk Factor Assmnt - Choose All That Apply Any of the Below Risk Factors Present?: Yes Each Factor Represents 1 point: Age 41-60 years Thrombosis Risk Factor Assessment Total Risk Factor Score: 1 Thrombosis Risk Factor Assessment Level: Low Risk Assessment and Plan Assessment: Chronic intermittent intractable nausea , emesis 1 with suspected vasovagal bradycardia, in a patient with history of Emily 04/05, EGD and colonoscopy 2015 reporting mild antral gastritis, right colon polyp and internal hemorrhoids. Gastroesophageal reflux disease Chronic intermittent Asthma, COPD, stable, Obstructive sleep apnea IBS History of mild hepatomegaly with Hepatic steatosis Depression PTSD Prior history of nicotine dependence, quit in 2011 Obesity, BMI 30.7 Plan: Continue on current medication regime ,monitoring and symptomatic treat ment. Evaluated by cardiology, today echo pending. Event monitor at discharge as per cardiology. Further GI workup outpatient with PCP Patient will be discharged home today in a stable condition with guarded prognosis pending echo results, final DC recommendations clearance per cardiology. Discharge Medication List Albuterol Inhaler [Ventolin Hfa Inhaler] 2 puff INHALATION RT-Q6H PRN 04/12/15 [History] DULoxetine HCL [Cymbalta] 60 mg PO BID 12/23/18 [History] Ergocalciferol (Vitamin D2) [Vitamin D2] 50,000 unit PO OSCAR 12/23/18 [History] Montelukast Sodium [Singulair] 10 mg PO DAILY 01/14/19 [History] Atorvastatin [Lipitor] 20 mg PO DAILY 04/07/22 [History] Diclofenac Sodium Gel [Voltaren Gel] 1 applic TOPICAL QID PRN 04/07/22 [History] Diphenoxylate HCl/Atropine [Lomotil 2.5-0.025 mg Tablet] 2 tab PO TID 04/07/22 [History] Omeprazole 20 mg PO DAILY 04/07/22 [History] Topiramate [Topamax] 100 mg PO HS 04/07/22 [History] Ubidecarenone [Coenzyme Q10] 200 mg PO DAILY 04/07/22 [History] hydrOXYzine HCL 25 mg PO TID PRN 04/07/22 [History] predniSONE See Taper PO DIRECTED 04/07/22 [History] valACYclovir HCL [Valtrex] 1,000 mg PO DAILY 04/07/22 [History] The impression and plan of care has been dictated as directed. : I performed a history and examination of this patient, discussed the same with the dictator. I agree with the dictator's note ,documented as a scribe. Any additional findings or plans will be noted.
[2022-04-08 15:09] VITALS: BP 118/64; PULSE 52; TEMP 98.4
[2022-04-08] MEDS ORDERED: TOPIRAMATE 100 MG TAB PO SCH (21:00)
--- NOTE | 2022-04-09 07:43 | CA ---
Transthoracic Echo Report Name: Charmaine Braxton Age: 57 Gender: F : 1965 Exam Date: 04/08/2022 13:00 Exam Location: [facility] Ht (in): 62 Wt (lb): 168 Ordering Physician: Theresa Raphael Attending/Referring Phys: Adjunct Professor Of Law Delfina Staton RDCS Procedure CPT: Indications: bradycardia lv function Cardiac Hx: No cardiac hx Technical Quality: Good Contrast 1: Total Dose (mL): Contrast 2: Total Dose (mL): MEASUREMENTS (Male / Female) Normal Values 2D ECHO LV Diastolic Diameter PLAX 4.1 cm 4.2 - 5.9 / 3.9 - 5.3 cm LV Systolic Diameter PLAX 2.0 cm IVS Diastolic Thickness 0.8 cm 0.6 - 1.0 / 0.6 - 0.9 cm LVPW Diastolic Thickness 1.0 cm 0.6 - 1.0 / 0.6 - 0.9 cm LV Relative Wall Thickness 0.5 RV Internal Dim ED PLAX 2.4 cm LA Volume 21.1 cm??? 18 - 58 / 22 - 52 cm??? M-MODE Aortic Root Diameter MM 3.3 cm LA Systolic Diameter MM 2.8 cm LA Ao Ratio MM 0.9 MV E Point Septal Separation 0.5 cm AV Cusp Separation MM 1.8 cm DOPPLER AV Peak Velocity 162.0 cm/s AV Peak Gradient 10.5 mmHg MV Area PHT 3.2 cm??? MR Peak Velocity 150.0 cm/s MR Peak Gradient 9.0 mmHg Mitral E Point Velocity 111.8 cm/s Mitral A Point Velocity 80.7 cm/s Mitral E to A Ratio 1.4 MV Deceleration Time 237.5 ms MV E' Velocity 10.8 cm/s Mitral E to MV E' Ratio 10.3 TR Peak Velocity 145.1 cm/s TR Peak Gradient 8.4 mmHg Right Ventricular Systolic Press 13.1 mmHg FINDINGS Left Ventricle Mildly LVH. Left ventricular ejection fraction is estimated at 55-60 %.left ventricular cavity size normal. Right Ventricle The right ventricle is normal in size and function. Right Atrium The right atrium is normal in size. Left Atrium The left atrium is normal in size. Mitral Valve Structurally normal mitral valve without significant stenosis or prolapse. There is trace mitral regurgitation. Aortic Valve Structurally normal aortic valve without significant sclerosis or stenosis. There is no aortic regurgitation. Tricuspid Valve Structurally normal tricuspid valve without significant stenosis. Pulmonary artery systolic pressure is normal. Trace tricuspid regurgitation. Pulmonic Valve Structurally normal pulmonic valve without significant stenosis. There is no pulmonic regurgitation. Pericardium Normal pericardium without effusion. Aorta Normal aortic root dimension. CONCLUSIONS Normal left ventricular ejection fraction 55-60% Mild LVH Trace mitral regurgitation Trace tricuspid regurgitation No pericardial effusion Previewed by: Dr. Torres Nicholson DO (Electronically Signed) Final Date: 09 April 2022 07:42
== END 2022-04-08 14:49 | disposition home or self-care (01) ==
LOC: EC 16:46 → 6NMEDSUR 20:30 → 4SSUR 04-08 04:54
PROVIDERS: ADMIT Family Medicine; ATTEND Family Medicine
DX: R11.2 Nausea with vomiting, unspecified (principal); R10.9 Unspecified abdominal pain; R61 Generalized hyperhidrosis; R42 Dizziness and giddiness; R50.9 Fever, unspecified; R00.1 Bradycardia, unspecified; K21.9 Gastro-esophageal reflux disease without esophagitis; J44.9 Chronic obstructive pulmonary disease, unspecified; J45.20 Mild intermittent asthma, uncomplicated; G47.33 Obstructive sleep apnea (adult) (pediatric); K58.9 Irritable bowel syndrome, unspecified; K76.0 Fatty (change of) liver, not elsewhere classified; R16.0 Hepatomegaly, not elsewhere classified; F43.10 Post-traumatic stress disorder, unspecified; F32.A Depression, unspecified; E66.9 Obesity, unspecified; Z68.30 Body mass index [BMI] 30.0-30.9, adult; E78.5 Hyperlipidemia, unspecified; F40.00 Agoraphobia, unspecified; M19.90 Unspecified osteoarthritis, unspecified site; Z20.822 Contact with and (suspected) exposure to COVID-19; Z87.891 Personal history of nicotine dependence; Z86.718 Personal history of other venous thrombosis and embolism; Z87.442 Personal history of urinary calculi; Z87.19 Personal history of other diseases of the digestive system; Z86.010 Personal history of colon polyps; Z79.899 Other long term (current) drug therapy; Z88.8 Allergy status to other drugs, medicaments and biological substances; Z91.09 Other allergy status, other than to drugs and biological substances; Z90.49 Acquired absence of other specified parts of digestive tract; Z82.5 Family history of asthma and other chronic lower respiratory diseases
CPT/HCPCS: 96376 ×2; 96372; 96375 ×2; 96361; 96374; 99285; 36415; 93005; 93306; 93270; 80053; 80048; 82533; 83605; 83735 ×2; 84484 ×2; 85025 ×2; 85610; 85730; 87635; 71046; G0378 ×3; J2270 ×2; J1200; J2405 ×2; C9113; J1644

== ENCOUNTER 2022-04-09 09:18 | Observation (INO) | payer MEDICARE ==
[2022-04-09] MEDS ORDERED: HYDROmorphone 0.5 MG/0.5 ML SYRINGE IVP STA ×2 (09:38→11:00)
[2022-04-09] MEDS ORDERED: ONDANSETRON 4 MG/2 ML VIAL IVP STA (09:38)
[2022-04-09] MEDS ORDERED: SODIUM CHLORIDE 0.9% 500 ML 500 ML IV STA (09:38)
--- NOTE | 2022-04-09 10:10 | ED ---
General Adult HPI - General Chief complaint: Nausea/Vomiting/Diarrhea Stated complaint: Back Pain,Vomiting Time Seen by Provider: 04/09/22 09:25 Source: patient, family, RN notes reviewed, old records reviewed Mode of arrival: wheelchair Limitations: no limitations - History of Present Illness Initial comments: 57-year-old female presenting for evaluation of nausea vomiting, abdominal pain. Patient has had symptoms for the past 3 days per she was admitted to the hospital 2 days ago and discharged yesterday. She's had persistent symptoms since that time. She was seen by her primary care physician and was treated for a left sciatic nerve pain. She states that that is also present currently but her main complaint is nausea vomiting and upper abdominal pain. No chest pain. No measured fevers. She has had a bowel movement. - Related Data Home Medications Medication Instructions Recorded Confirmed Albuterol Inhaler [Ventolin Hfa 2 puff INHALATION RT-Q6H PRN 04/12/15 04/07/22 Inhaler] DULoxetine HCL [Cymbalta] 60 mg PO BID 12/23/18 04/07/22 Ergocalciferol (Vitamin D2) 50,000 unit PO OSCAR 12/23/18 04/07/22 [Vitamin D2] Montelukast Sodium [Singulair] 10 mg PO DAILY 01/14/19 04/07/22 Atorvastatin [Lipitor] 20 mg PO DAILY 04/07/22 04/07/22 Diclofenac Sodium Gel [Voltaren 1 applic TOPICAL QID PRN 04/07/22 04/07/22 Gel] Diphenoxylate HCl/Atropine 2 tab PO TID 04/07/22 04/07/22 [Lomotil 2.5-0.025 mg Tablet] Omeprazole 20 mg PO DAILY 04/07/22 04/07/22 Topiramate [Topamax] 100 mg PO HS 04/07/22 04/07/22 Ubidecarenone [Coenzyme Q10] 200 mg PO DAILY 04/07/22 04/07/22 hydrOXYzine HCL 25 mg PO TID PRN 04/07/22 04/07/22 predniSONE See Taper PO DIRECTED 04/07/22 04/07/22 valACYclovir HCL [Valtrex] 1,000 mg PO DAILY 04/07/22 04/07/22 Allergies Allergy/AdvReac Type Severity Reaction Status Date / Time pravastatin AdvReac SLURRING Verified 04/09/22 09:26 OF SPEECH environmental Allergy Wheezing Uncoded 04/09/22 09:26 Review of Systems ROS Statement: Those systems with pertinent positive or pertinent negative responses have been documented in the HPI. ROS Other: All systems not noted in ROS Statement are negative. Past Medical History Past Medical History: Asthma, COPD, Deep Vein Thrombosis (DVT), GERD/Reflux, Osteoarthritis (OA), Sleep Apnea/CPAP/BIPAP Additional Past Medical History / Comment(s): IBS,fatty liver,"KIDNEY STONE,uses cpap. IBS History of Any Multi-Drug Resistant Organisms: None Reported Past Surgical History: Breast Surgery, Hernia Repair, Orthopedic Surgery, Tubal Ligation Additional Past Surgical History / Comment(s): RIGHT LUMPECTOMY, LEFT KNEE ARTHROSCOPY . left hand surgery,lasik eye sx 2008, HAD LAP EMILY FUNDLOPLICATION. EGD and colonoscopy, Past Anesthesia/Blood Transfusion Reactions: No Reported Reaction Additional Past Anesthesia/Blood Transfusion Reaction / Comment(s): no hx blood transfusion Past Psychological History: Depression, PTSD Smoking Status: Never smoker Past Alcohol Use History: None Reported Past Drug Use History: None Reported - Past Family History Mother Family Medical History: Asthma Additional Family Medical History / Comment(s): from ruptued aa General Exam Limitations: no limitations General appearance: alert, in distress Head exam: Present: atraumatic, normocephalic Eye exam: Present: normal appearance, PERRL ENT exam: Present: mucous membranes dry Course Vital Signs 04/09/22 04/09/22 04/09/22 09:21 09:48 10:19 Temperature 97.4 F L Pulse Rate 52 L 51 L 80 Respiratory 24 24 22 Rate Blood Pressure 206/104 170/101 188/89 O2 Sat by Pulse 100 100 100 Oximetry 04/09/22 11:34 Temperature Pulse Rate 54 L Respiratory 18 Rate Blood Pressure 176/82 O2 Sat by Pulse 99 Oximetry EKG Findings - EKG Comments: EKG Findings:: Sinus bradycardia rate of 45, UT interval 128, QRS duration 97, QTC [address] segment elevation. Medical Decision Making - Medical Decision Making 57-year-old female with persistent vomiting over the course of several days. Upon arrival patient is diaphoretic, pale, she is complaining of some upper abdominal pain. She's hypertensive. Workup was initiated as well as treatment with antiemetics, pain medication and IV fluids. Her CBC is unremarkable. She is acidotic with a CO2 of 16. She has 1+ ketones on urinalysis. Otherwise is no acute laboratory abnormality. She has a CT which is show mild hydronephrosis without obstructive stone. No other acute findings on CT imaging to explain the patient's symptoms. She will be kept for symptomatic treatment and GI consultation. Case discussed with Dr. Holden - Lab Data Result diagrams: 04/09/22 10:03 04/09/22 10:03 Lab Results 04/09/22 04/09/22 04/09/22 Range/Units 10:03 10:03 10:03 WBC 8.0 (3.8-10.6) k/uL RBC 4.36 (3.80-5.40) m/uL Hgb 13.8 (11.4-16.0) gm/dL Hct 41.5 (34.0-46.0) % MCV 95.2 (80.0-100.0) fL MCH 31.7 (25.0-35.0) pg MCHC 33.3 (31.0-37.0) g/dL RDW 13.2 (11.5-15.5) % Plt Count 188 (150-450) k/uL MPV 9.7 Neutrophils % 72 % Lymphocytes % 20 % Monocytes % 6 % Eosinophils % 0 % Basophils % 0 % Neutrophils # 5.8 (1.3-7.7) k/uL Lymphocytes # 1.6 (1.0-4.8) k/uL Monocytes # 0.5 (0-1.0) k/uL Eosinophils # 0.0 (0-0.7) k/uL Basophils # 0.0 (0-0.2) k/uL PT 10.1 (9.0-12.0) sec INR 0.9 (<1.2) APTT 21.2 L (22.0-30.0) sec Sodium 138 (137-145) mmol/L Potassium 3.8 (3.5-5.1) mmol/L Chloride 111 H (98-107) mmol/L Carbon Dioxide 16 L (22-30) mmol/L Anion Gap 11 mmol/L BUN 13 (7-17) mg/dL Creatinine 0.73 (0.52-1.04) mg/dL Est GFR (CKD-EPI)AfAm >90 (>60 ml/min/1.73 sqM) Est GFR (CKD-EPI)NonAf >90 (>60 ml/min/1.73 sqM) Glucose 137 H (74-99) mg/dL Plasma Lactic Acid Chinedu (0.7-2.0) mmol/L Calcium 9.0 (8.4-10.2) mg/dL Total Bilirubin 1.3 (0.2-1.3) mg/dL AST 22 (14-36) U/L ALT 17 (4-34) U/L Alkaline Phosphatase 71 (38-126) U/L Troponin I (0.000-0.034) ng/mL Total Protein 6.7 (6.3-8.2) g/dL Albumin 4.2 (3.5-5.0) g/dL Amylase 55 (30-110) U/L Lipase 79 (23-300) U/L Urine Color Urine Appearance (Clear) Urine pH (5.0-8.0) Ur Specific [place] (1.001-1.035) Urine Protein (Negative) Urine Glucose (UA) (Negative) Urine Ketones (Negative) Urine Blood (Negative) Urine Nitrite (Negative) Urine Bilirubin (Negative) Urine Urobilinogen (<2.0) mg/dL Ur Leukocyte Esterase (Negative) 04/09/22 04/09/22 04/09/22 Range/Units 10:03 10:03 10:58 WBC (3.8-10.6) k/uL RBC (3.80-5.40) m/uL Hgb (11.4-16.0) gm/dL Hct (34.0-46.0) % MCV (80.0-100.0) fL MCH (25.0-35.0) pg MCHC (31.0-37.0) g/dL RDW (11.5-15.5) % Plt Count (150-450) k/uL MPV Neutrophils % % Lymphocytes % % Monocytes % % Eosinophils % % Basophils % % Neutrophils # (1.3-7.7) k/uL Lymphocytes # (1.0-4.8) k/uL Monocytes # (0-1.0) k/uL Eosinophils # (0-0.7) k/uL Basophils # (0-0.2) k/uL PT (9.0-12.0) sec INR (<1.2) APTT (22.0-30.0) sec Sodium (137-145) mmol/L Potassium (3.5-5.1) mmol/L Chloride (98-107) mmol/L Carbon Dioxide (22-30) mmol/L Anion Gap mmol/L BUN (7-17) mg/dL Creatinine (0.52-1.04) mg/dL Est GFR (CKD-EPI)AfAm (>60 ml/min/1.73 sqM) Est GFR (CKD-EPI)NonAf (>60 ml/min/1.73 sqM) Glucose (74-99) mg/dL Plasma Lactic Acid Chinedu 1.5 (0.7-2.0) mmol/L Calcium (8.4-10.2) mg/dL Total Bilirubin (0.2-1.3) mg/dL AST (14-36) U/L ALT (4-34) U/L Alkaline Phosphatase (38-126) U/L Troponin I <0.012 (0.000-0.034) ng/mL Total Protein (6.3-8.2) g/dL Albumin (3.5-5.0) g/dL Amylase (30-110) U/L Lipase (23-300) U/L Urine Color Light Yellow Urine Appearance Clear (Clear) Urine pH 6.5 (5.0-8.0) Ur Specific [place] 1.022 (1.001-1.035) Urine Protein Negative (Negative) Urine Glucose (UA) Negative (Negative) Urine Ketones 1+ H (Negative) Urine Blood Negative (Negative) Urine Nitrite Negative (Negative) Urine Bilirubin Negative (Negative) Urine Urobilinogen <2.0 (<2.0) mg/dL Ur Leukocyte Esterase Negative (Negative) Disposition Clinical Impression: Abdominal pain, Nausea & vomiting, Intractable vomiting with nausea Disposition: ADMITTED IP TO THIS HOSP Condition: Stable Is patient prescribed a controlled substance at d/c from ED?: No Referrals: Ariella Espana DO [Primary Care Provider] - 1-2 days Time of Disposition: 12:21
[2022-04-09 10:23] LABS: Basophils % (A) 0 %; Eosinophils % (A) 0 %; HCT 41.5 % (34.0-46.0); HGB 13.8 gm/dL (11.4-16.0); Lymphocytes # (A) 1.6 k/uL (1.0-4.8); Lymphocytes % (A) 20 %; MCH 31.7 pg (25.0-35.0); MCHC 33.3 g/dL (31.0-37.0); MCV 95.2 fL (80.0-100.0); Mean Platelet Volume 9.7; Monocytes # (A) 0.5 k/uL (0-1.0); Monocytes % (A) 6 %; Neutrophils # (A) 5.8 k/uL (1.3-7.7); Neutrophils % (A) 72 %; Platelet Count 188 k/uL (150-450); RBC 4.36 m/uL (3.80-5.40); RDW 13.2 % (11.5-15.5)
[2022-04-09 10:44] LABS: INR 0.9 (<1.2); Prothrombin Time 10.1 sec (9.0-12.0)
[2022-04-09 10:46] LABS: ALT 17 U/L (4-34); African American GFR (CKD) >90 (>60 ml/min/1.73 sqM); Albumin 4.2 g/dL (3.5-5.0); Amylase 55 U/L (30-110); Anion Gap 11 mmol/L; Blood Urea Nitrogen 13 mg/dL (7-17); Carbon Dioxide 16 mmol/L (22-30); Chloride 111 mmol/L (98-107); Glucose 137 mg/dL (74-99); Lipase 79 U/L (23-300); Non-African American GFR(CKD) >90 (>60 ml/min/1.73 sqM); Sodium 138 mmol/L (137-145); Total Bilirubin 1.3 mg/dL (0.2-1.3); Total Protein 6.7 g/dL (6.3-8.2)
--- NOTE | 2022-04-09 10:56 | CT ---
EXAMINATION TYPE: CT abdomen pelvis w con CT DLP: 1069.8 mGycm, Automated exposure control for dose reduction was used. DATE OF EXAM: 04/09/2022 10:41 AM COMPARISON: CT abdomen pelvis 02/16/2016 CLINICAL INDICATION:Female, 57 years old with history of abdominal pain; Nausea, vomiting, abdominal and back pain TECHNIQUE: Standard CT of the abdomen and pelvis following the administration of 100 cc of Isovue 3 00 IV contrast material. Coronal and sagittal reformats were performed. FINDINGS: LOWER CHEST: Unremarkable ABDOMEN LIVER: Diffusely hypoattenuating parenchyma. No suspicious hepatic lesion. GALLBLADDER AND BILE DUCTS: The gallbladder is surgically absent. No biliary ductal dilatation. PANCREAS: Unremarkable. SPLEEN: Unremarkable. ADRENAL GLANDS: Unremarkable. KIDNEYS AND URETERS: There is mild prominence of the right ureter with mild hydronephrosis compared t o prior examination with no ureteral calcification evident. No hydronephrosis of the left kidney. Marlon ateral renal cysts. No perinephric fat stranding or fluid collections. PELVIS BLADDER: Unremarkable REPRODUCTIVE: Partially calcified uterine fibroid redemonstrated. ABDOMEN & PELVIS STOMACH AND BOWEL: Postsurgical changes from Demetris fundoplication. No focal wall thickening or surro unding inflammatory changes. The appendix is within normal limits. No evidence of bowel obstruction. PERITONEUM: No evidence of pneumoperitoneum or free fluid. VASCULATURE: Mild atherosclerotic calcifications are present throughout the abdominal aorta and its b ranches. No evidence of aortic aneurysm. MUSCULOSKELETAL: No acute osseous abnormalities LYMPH NODES: No gross evidence for lymphadenopathy. SOFT TISSUE/ABDOMINAL WALL: Unremarkable IMPRESSION: * Mild right hydroureteronephrosis without visualized obstructing calculus. * Hepatic steatosis.
[2022-04-09 11:05] LABS: AST 22 U/L (14-36); Alkaline Phosphatase 71 U/L (38-126); Potassium 3.8 mmol/L (3.5-5.1)
[2022-04-09 11:23] LABS: Appearance,Urine Clear (Clear); Bilirubin,Urine Negative (Negative); Blood,Urine Negative (Negative); Color,Urine Light Yellow; Glucose,Urine (UA) Negative (Negative); Ketones,Urine 1+ (Negative); Leukocyte Esterase,Urine Negative (Negative); Nitrite,Urine Negative (Negative); PH, Urine 6.5 (5.0-8.0); Protein,Urine Negative (Negative); Specific Gravity,Urine 1.022 (1.001-1.035); Urobilinogen,Urine <2.0 mg/dL (<2.0)
[2022-04-09] MEDS: SODIUM CHLORIDE 0.9% 1,000 ML IV SCH ×2 (11:44→22:20)
[2022-04-09 11:58] LABS: Partial Thromboplastin Time 21.2 sec (22.0-30.0)
[2022-04-09] MEDS ORDERED: KETOROLAC 15 MG/ML 1 ML VIAL IVP STA (12:08)
[2022-04-09] MEDS ORDERED: NALOXONE 0.4 MG/ML 1 ML VIAL IV PRN (12:10)
[2022-04-09] MEDS ORDERED: ONDANSETRON 4 MG/2 ML VIAL IVP PRN (12:10)
[2022-04-09] MEDS: HYDROmorphone 0.5 MG/0.5 ML SYRINGE IVP PRN ×2 (15:06→18:27)
[2022-04-09] MEDS ORDERED: hydrOXYzine HCL 25 MG TAB PO PRN (21:59)
[2022-04-09] MEDS ORDERED: ALBUTEROL NEBULIZED 2.5 MG/3 ML INHALATION PRN (21:59)
[2022-04-09] MEDS: MORPHINE SULFATE 4 MG/ML SYRINGE IVP PRN (22:16)
[2022-04-09] MEDS: TOPIRAMATE 100 MG TAB PO SCH (23:20)
[2022-04-10] MEDS: MORPHINE SULFATE 4 MG/ML SYRINGE IVP PRN ×3 (04:46→17:15)
[2022-04-10 07:58] VITALS: RESP 18
[2022-04-10] MEDS: PANTOPRAZOLE 40 MG/10 ML VIAL IV SCH (08:10)
[2022-04-10] MEDS: SODIUM CHLORIDE 0.9% 1,000 ML IV SCH ×2 (08:11→17:14)
[2022-04-10] MEDS: DULoxetine HCL 60 MG CAPSULE.DR PO SCH ×2 (08:11→20:30)
[2022-04-10] MEDS: MONTELUKAST 10 MG TAB PO SCH (08:11)
[2022-04-10] MEDS ORDERED: PANTOPRAZOLE 40 MG TABLET PO SCH (09:00)
[2022-04-10 10:19] VITALS: BMI 30.7
[2022-04-10] MEDS: KETOROLAC 15 MG/ML 1 ML VIAL IVP SCH ×2 (11:30→17:14)
--- NOTE | 2022-04-10 12:01 | P.CONS ---
History of Present Illness - Reason for Consult Consult date: 04/10/22 Nausea and vomiting Requesting physician: Juice Smith - Chief Complaint Back pain, nausea vomiting - History of Present Illness This is a pleasant 57-year-old female who had presented to the emergency department for evaluation of nausea vomiting abdominal pain as well as back pain. She states the symptoms started about 3 days ago. Prior to that she had been hospitalized 2 days ago and discharged yesterday. At that time she was seen by cardiology for bradycardia who recommended an event monitor for 2 weeks. She states her symptoms have been persistent. She has a past medical history including IBS, GERD with previous Demetris fundoplication. She states her symptoms have been going on for years. She states that once a month she will not feel well, she will break out in sweats, get bradycardic followed by nausea and chills. She had a CT of the abdomen and pelvis that showed right hydro- ureteral nephrosis without visualized obstructing calculus. Hepatic steatosis. She is currently denying any vomiting. She recently has seen Dr. Arnett in the last month for IBS and has an upcoming follow-up. She has been afebrile. She has had some bradycardia this admission. Labs: WBC 8.0 hemoglobin 13.8 hematocrit 41 platelet count 188,000 INR 0.9 sodium 138 potassium 3.8 BUN 13 creatinine 0.73 glucose 137 total bilirubin 1.3 AST 22 ALT 17 alkaline phosphatase 71 amylase 55 lipase 79 Review of Systems REVIEW OF SYSTEMS: CARDIOPULMONARY: No chest pain or shortness of breath. Gastrointestinal: Intermittent nausea with vomiting. This has been chronic over the last year or more. Nausea and vomiting usually will follow episodes of bradycardia, diaphoresis. No hematemesis, coffee-ground emesis. No rectal bleeding, or melena. GENITOURINARY: No dysuria or hematuria. MUSCULOSKELETAL: Reports normal range of motion., Joint pain. SKIN: No rashes. No jaundice. ENDOCRINE: No chills, fevers. No excessive weight gain or loss. No polydipsia or polyuria. PSYCHIATRIC: Unremarkable. NEUROLOGY: No change in mental status. Denies dizziness, headache. ENT: Vision unremarkable. CONSTITUTIONAL: No recent weight loss. No fever, chills, night sweats. Past Medical History Past Medical History: Asthma, COPD, Deep Vein Thrombosis (DVT), GERD/Reflux, Hyperlipidemia, Osteoarthritis (OA), Sleep Apnea/CPAP/BIPAP Additional Past Medical History / Comment(s): Pt recently admitted to [facility] on 04/07/22 with chronic intermittent N/V and had suspected vasovagal bradycardia. Other hx: Antral gastritis, IBS, benign colon polyp, mild hepatomegaly/hepatic steatosis, nephrolithiasis, DVT L leg post op, recently tx for L sciatica, LEODAN with Cpap, Louis's palsey, "borderline diabetic" History of Any Multi-Drug Resistant Organisms: None Reported Past Surgical History: Breast Surgery, Cholecystectomy, Hernia Repair, Orthopedic Surgery, Tubal Ligation Additional Past Surgical History / Comment(s): L knee arthroscopy, L hand surgery to sand down calcium buildup, R breast lumpectomies, Demetris, EGD, colonoscopy/benign polyp, lasik eye surgery. Past Anesthesia/Blood Transfusion Reactions: No Reported Reaction Additional Past Anesthesia/Blood Transfusion Reaction / Comm: no hx blood transfusion Smoking Status: Former smoker - Past Family History Mother Family Medical History: Asthma Additional Family Medical History / Comment(s): from ruptued aa Medications and Allergies Home Medications Medication Instructions Recorded Confirmed Type Albuterol Inhaler [Ventolin Hfa 2 puff INHALATION RT-Q4H PRN 04/12/15 04/09/22 History Inhaler] DULoxetine HCL [Cymbalta] 60 mg PO BID 12/23/18 04/09/22 History Ergocalciferol (Vitamin D2) 50,000 unit PO OSCAR 12/23/18 04/09/22 History [Vitamin D2] Montelukast Sodium [Singulair] 10 mg PO DAILY 01/14/19 04/09/22 History Atorvastatin [Lipitor] 20 mg PO DAILY 04/07/22 04/09/22 History Diclofenac Sodium Gel [Voltaren 4 gm TOPICAL QID PRN 04/07/22 04/09/22 History Gel] Diphenoxylate HCl/Atropine 2 tab PO TID 04/07/22 04/09/22 History [Lomotil 2.5-0.025 mg Tablet] Omeprazole 20 mg PO DAILY 04/07/22 04/09/22 History Topiramate [Topamax] 100 mg PO HS 04/07/22 04/09/22 History Ubidecarenone [Coenzyme Q10] 200 mg PO DAILY 04/07/22 04/09/22 History hydrOXYzine HCL 25 mg PO TID PRN 04/07/22 04/09/22 History Triamcinolone 0.5% Cream [Kenalog 1 applic TOPICAL BID 04/09/22 04/09/22 History 0.5% Cream] predniSONE See Taper PO DIRECTED 04/09/22 04/09/22 History valACYclovir HCL [Valtrex] 1,000 mg PO DAILY 04/09/22 04/09/22 History Allergies Allergy/AdvReac Type Severity Reaction Status Date / Time grass pollen Allergy Wheezing Verified 04/09/22 13:11 mold Allergy Wheezing Verified 04/09/22 13:11 tree and shrub pollen Allergy Wheezing Verified 04/09/22 13:11 pravastatin AdvReac SLURRING Verified 04/09/22 13:11 OF SPEECH environmental AdvReac Wheezing Uncoded 04/09/22 13:11 Physical Exam Vitals: Vital Signs Temp Pulse Pulse Resp BP BP Pulse Ox 04/10/22 07:00 98.4 F 60 18 139/76 97 04/10/22 00:32 98.8 F 54 L 17 148/70 98 04/09/22 21:44 98.4 F 50 L 17 153/72 98 04/09/22 19:00 58 L 18 145/94 96 04/09/22 18:00 49 L 18 179/88 99 04/09/22 15:00 53 L 18 141/67 97 04/09/22 12:00 53 L 18 169/93 96 04/09/22 11:34 54 L 18 176/82 99 04/09/22 10:19 80 22 188/89 100 04/09/22 09:48 51 L 24 170/101 100 04/09/22 09:21 97.4 F L 52 L 24 206/104 100 Intake and Output 04/09/22 04/10/22 04/10/22 22:59 06:59 14:59 Other: # Voids 1 1 Weight 76.204 kg General appearance: The patient is alert, oriented, appears in no acute dist ress. HET: Head is normocephalic and atraumatic. Conjunctiva pink. Sclera anicteric. Neck: Supple without lymphadenopathy. Trachea midline. Heart: S1 S2. Regular rate and rhythm. Lungs: Clear to auscultation. Abdomen: Soft, nontender, nondistended with bowel sounds. No guarding or rigidity. Skin: No rashes. No jaundice. Extremities: Normal skin color and turgor. No pedal edema. Neurological: No focal deficits. Alert and oriented x3. Results CBC & Chem 7: 04/09/22 10:03 04/09/22 10:03 Labs: Abnormal Lab Results - Last 24 Hours (Table) 04/09/22 04/09/22 04/09/22 Range/Units 10:03 10:03 10:58 APTT 21.2 L (22.0-30.0) sec Chloride 111 H (98-107) mmol/L Carbon Dioxide 16 L (22-30) mmol/L Glucose 137 H (74-99) mg/dL Urine Ketones 1+ H (Negative) CT scan - abdomen: report reviewed (Mild right hydro-uteronephrosis without visualized obstructing calculus. Hepatic steatosis) Assessment and Plan (1) Chronic nausea Narrative/Plan: 57-year-old female that is known to gastroenterology for history of IBS. Patient was recently seen in the office for management of IBS. She is admitted to the hospital with complaints of abdominal pain and associated nausea and intermittent vomiting. Patient states she has been having intermittent nausea and vomiting that usually follows episodes of bradycardia with cold sweats and chills. She states that this happens usually monthly. She was recently admitted overnight for similar complaints and was seen by cardiology who recommended outpatient follow-up. 2 week event monitor. These symptoms have been going on for years. She is currently asymptomatic at this time. She had a CT of the abdomen and pelvis without any significant findings for her complaints. She has had multiple EGDs done in the past. Her most current done on 02/10/[address] Stewart with findings of mild antral gastritis. She has a history of a Demetris fundoplication done [place] [address] Stewart. Unclear etiology of patient's symptoms. Cardiology is working patient up as an outpatient. Recommend continuing follow-up with Dr. Horne for IBS. Continue PPI, small frequent meals, cut up food in smaller pieces and chew well due to previous Demetris fundoplication. Current Visit: Yes Status: Acute Code(s): R11.0 - NAUSEA SNOMED Code(s): 419930576 Plan: 1. Continue symptomatic and supportive care 2. Continue with Protonix daily 3. Antiemetics as needed 4. Continue follow-up with Dr. Arnett outpatient for IBS 5. No plans on endoscopic evaluation at this time Thank you for this consultation, we will continue to follow. Dr. Jack Arnett I agree with the dictator's note, documented as a scribe by Kerrie Rajput.
[2022-04-10] MEDS: TOPIRAMATE 100 MG TAB PO SCH (20:30)
[2022-04-11] MEDS: KETOROLAC 15 MG/ML 1 ML VIAL IVP SCH ×3 (00:35→13:05)
[2022-04-11] MEDS: MORPHINE SULFATE 4 MG/ML SYRINGE IVP PRN ×3 (00:36→13:04)
[2022-04-11 01:59] VITALS: PULSE 59
[2022-04-11] MEDS: SODIUM CHLORIDE 0.9% 1,000 ML IV SCH (04:58)
[2022-04-11] MEDS: DULoxetine HCL 60 MG CAPSULE.DR PO SCH (08:26)
[2022-04-11] MEDS: PANTOPRAZOLE 40 MG/10 ML VIAL IV SCH (08:26)
[2022-04-11] MEDS: MONTELUKAST 10 MG TAB PO SCH (08:26)
--- NOTE | 2022-04-11 09:18 | P.HPIM ---
History of Present Illness H&P Date: 04/10/22 Chief Complaint: nausea, vomiting Charmaine Braxton is a 57 yo F with PMH of GERD, s/p jairon fundoplication, IBS, COPD, hx DVT who presented to the ED with complains of continued nausea and vomiting. She was in the hospital two days ago with similar complains as well as bradycardia and was evaluated by Cardiology at that time and no intervention recommended. She complains she is unable to keep anything down and develops abdominal pain and nausea when she eats. She states this has intermittently happened to her for years ever since her jairon procedure and at one point she saw [facility] and was recommended reversal but never followed through with this. She does follow with GI for her IBS. Denies fever, chills, diarrhea. On presentation HR 52, BP 206/104, WBC 8.0, Hgb 13.8, Cr 0.7. CT abd/pelvis no acute process. Review of Systems All systems: negative Constitutional: Reports malaise, Denies chills, Denies fever Eyes: denies blurred vision, denies pain Ears, nose, mouth and throat: Denies headache, Denies sore throat Cardiovascular: Denies chest pain, Denies shortness of breath Respiratory: Denies cough Gastrointestinal: Reports abdominal pain, Reports nausea, Reports vomiting, Denies diarrhea Genitourinary: Denies dysuria, Denies hematuria Musculoskeletal: Denies myalgias Integumentary: Denies pruritus, Denies rash Neurological: Denies numbness, Denies weakness Psychiatric: Denies anxiety, Denies depression Endocrine: Denies fatigue, Denies weight change Past Medical History Past Medical History: Asthma, COPD, Deep Vein Thrombosis (DVT), GERD/Reflux, Hyperlipidemia, Osteoarthritis (OA), Sleep Apnea/CPAP/BIPAP Additional Past Medical History / Comment(s): Pt recently admitted to [facility] on 04/07/22 with chronic intermittent N/V and had suspected vasovagal bradycardia. Other hx: Antral gastritis, IBS, benign colon polyp, mild hepatomegaly/hepatic steatosis, nephrolithiasis, DVT L leg post op, recently tx for L sciatica, LEODAN with Cpap, Louis's palsey, "borderline diabetic" History of Any Multi-Drug Resistant Organisms: None Reported Past Surgical History: Breast Surgery, Cholecystectomy, Hernia Repair, Orthopedic Surgery, Tubal Ligation Additional Past Surgical History / Comment(s): L knee arthroscopy, L hand surgery to sand down calcium buildup, R breast lumpectomies, Jairon, EGD, colonoscopy/benign polyp, lasik eye surgery. Past Anesthesia/Blood Transfusion Reactions: No Reported Reaction Additional Past Anesthesia/Blood Transfusion Reaction / Comment(s): no hx blood transfusion Smoking Status: Former smoker - Past Family History Mother Family Medical History: Asthma Additional Family Medical History / Comment(s): from ruptued aa Medications and Allergies Home Medications Medication Instructions Recorded Confirmed Type Albuterol Inhaler [Ventolin Hfa 2 puff INHALATION RT-Q4H PRN 04/12/15 04/09/22 History Inhaler] DULoxetine HCL [Cymbalta] 60 mg PO BID 12/23/18 04/09/22 History Ergocalciferol (Vitamin D2) 50,000 unit PO OSCAR 12/23/18 04/09/22 History [Vitamin D2] Montelukast Sodium [Singulair] 10 mg PO DAILY 01/14/19 04/09/22 History Atorvastatin [Lipitor] 20 mg PO DAILY 04/07/22 04/09/22 History Diclofenac Sodium Gel [Voltaren 4 gm TOPICAL QID PRN 04/07/22 04/09/22 History Gel] Diphenoxylate HCl/Atropine 2 tab PO TID 04/07/22 04/09/22 History [Lomotil 2.5-0.025 mg Tablet] Omeprazole 20 mg PO DAILY 04/07/22 04/09/22 History Topiramate [Topamax] 100 mg PO HS 04/07/22 04/09/22 History Ubidecarenone [Coenzyme Q10] 200 mg PO DAILY 04/07/22 04/09/22 History hydrOXYzine HCL 25 mg PO TID PRN 04/07/22 04/09/22 History Triamcinolone 0.5% Cream [Kenalog 1 applic TOPICAL BID 04/09/22 04/09/22 History 0.5% Cream] predniSONE See Taper PO DIRECTED 04/09/22 04/09/22 History valACYclovir HCL [Valtrex] 1,000 mg PO DAILY 04/09/22 04/09/22 History Allergies Allergy/AdvReac Type Severity Reaction Status Date / Time grass pollen Allergy Wheezing Verified 04/09/22 13:11 mold Allergy Wheezing Verified 04/09/22 13:11 tree and shrub pollen Allergy Wheezing Verified 04/09/22 13:11 pravastatin AdvReac SLURRING Verified 04/09/22 13:11 OF SPEECH environmental AdvReac Wheezing Uncoded 04/09/22 13:11 Physical Exam Vitals: Vital Signs Temp Pulse Pulse Resp BP BP Pulse Ox 04/10/22 07:00 98.4 F 60 18 139/76 97 04/10/22 00:32 98.8 F 54 L 17 148/70 98 04/09/22 21:44 98.4 F 50 L 17 153/72 98 04/09/22 19:00 58 L 18 145/94 96 04/09/22 18:00 49 L 18 179/88 99 04/09/22 15:00 53 L 18 141/67 97 04/09/22 12:00 53 L 18 169/93 96 04/09/22 11:34 54 L 18 176/82 99 04/09/22 10:19 80 22 188/89 100 04/09/22 09:48 51 L 24 170/101 100 04/09/22 09:21 97.4 F L 52 L 24 206/104 100 Intake and Output 04/09/22 04/10/22 04/10/22 22:59 06:59 14:59 Other: # Voids 1 1 Weight 76.204 kg General: well developed, well nourished female in NAD HEENT: Normocephalic, atraumatic, mucus membranes moist Neck: supple, no thyromegaly or JVD CV: RRR, no murmur. Pulses 2+ Lungs: Normal effort, clear throughout Abd: soft, tenderness epigastric, bowel sounds present Neuro: alert and oriented x3, no focal deficit Skin: warm and dry Results CBC & Chem 7: 04/09/22 10:03 04/09/22 10:03 Labs: Abnormal Lab Results - Last 24 Hours (Table) 04/09/22 04/09/22 04/09/22 Range/Units 10:03 10:03 10:58 APTT 21.2 L (22.0-30.0) sec Chloride 111 H (98-107) mmol/L Carbon Dioxide 16 L (22-30) mmol/L Glucose 137 H (74-99) mg/dL Urine Ketones 1+ H (Negative) Thrombosis Risk Factor Assmnt - Choose All That Apply Any of the Below Risk Factors Present?: Yes Each Factor Represents 1 point: Abnormal pulmonary function (COPD), Age 41-60 years, Obesity (BMI >25) Other Risk Factors: Yes Each Risk Factor Represents 3 Points: History of DVT/PE Thrombosis Risk Factor Assessment Total Risk Factor Score: 6 Thrombosis Risk Factor Assessment Level: High Risk Assessment and Plan Plan: 1. Intractable nausea and vomiting, secondary to IBS and likely worsened by scar tissue. Obs, GI consult. PPI. IV toradol and morphine as needed for pain control 2. Migraine. continue topamax 3. Allergic rhinitis. Continue singulair
[2022-04-11 09:40] VITALS: BP 155/86; TEMP 97.9
--- NOTE | 2022-04-11 14:54 | US ---
EXAMINATION TYPE: US venous doppler duplex LE LT DATE OF EXAM: 04/11/2022 1:55 PM COMPARISON: NONE CLINICAL HISTORY: ro blood clot, but the pain. Left leg pain. Patient states having a history of DVT in left leg. Not on blood thinners. SIDE PERFORMED: Left TECHNIQUE: The lower extremity deep venous system is examined utilizing real time linear array sonog floyd with graded compression, doppler sonography and color-flow sonography. VESSELS IMAGED: Common Femoral Vein Deep Femoral Vein Greater Saphenous Vein * Femoral Vein Popliteal Vein Small Saphenous Vein * Proximal Calf Veins (* superficial vessels) Left Leg: Negative for DVT Grayscale, color doppler, spectral doppler imaging performed of the deep veins of the lower extremiti es. There is normal flow, compressibility, vascular waveforms. IMPRESSION: No evidence of DVT of the left lower extremity.
--- NOTE | 2022-04-11 14:58 | P.PN ---
Subjective Progress Note Date: 04/11/22 Principal diagnosis: Nausea vomiting This is a pleasant 57-year-old female who had presented to the emergency department for evaluation of nausea vomiting abdominal pain as well as back pain. She states the symptoms started about 3 days ago. Prior to that she had been hospitalized 2 days ago and discharged yesterday. At that time she was seen by cardiology for bradycardia who recommended an event monitor for 2 weeks. She states her symptoms have been persistent. She has a past medical history including IBS, GERD with previous Demetris fundoplication. She states her sy mptoms have been going on for years. She states that once a month she will not feel well, she will break out in sweats, get bradycardic followed by nausea and chills. She had a CT of the abdomen and pelvis that showed right hydro-ureteral nephrosis without visualized obstructing calculus. Hepatic steatosis. She is currently denying any vomiting. She recently has seen Dr. Arnett in the last fri for IBS and has an upcoming follow-up. She has been afebrile. She has had some bradycardia this admission. 04/11/2022: Patient seen and examined today. States that she is feeling better no significant nausea or vomiting. She is tolerating her diet. She is afebrile. Denies any abdominal pain. Objective - Vital Signs Vital signs: Vital Signs Temp 97.9 F 04/11/22 07:00 Pulse 59 L 04/11/22 08:00 Resp 18 04/11/22 08:00 BP 155/86 04/11/22 07:00 Pulse Ox 100 04/11/22 07:00 FiO2 Intake & Output 04/10/22 04/11/22 04/11/22 18:59 06:59 18:59 Weight 76.204 kg Other: # Voids 3 2 - Exam General appearance: The patient is alert, oriented, appears in no acute distress. HET: Head is normocephalic and atraumatic. Conjunctiva pink. Sclera anicteric. Neck: Supple without lymphadenopathy. Abdomen: Soft, nontender, nondistended with bowel sounds. No guarding or rigidity. Extremities: Normal skin color and turgor. No pedal edema Skin: No rashes, no jaundice Neurological: No focal deficits. Alert and oriented -3. - Labs CBC & Chem 7: 04/09/22 10:03 04/09/22 10:03 Assessment and Plan (1) Chronic nausea Narrative/Plan: 57-year-old female that is known to gastroenterology for history of IBS. Patient was recently seen in the office for management of IBS. She is admitted to the hospital with complaints of abdominal pain and associated nausea and intermittent vomiting. Patient states she has been having intermittent nausea and vomiting that usually follows episodes of bradycardia with cold sweats and chills. She states that this happens usually monthly. She was recently admitted overnight for similar complaints and was seen by cardiology who recommended outpatient follow-up. 2 week event monitor. These symptoms have been going on for years. She is currently asymptomatic at this time. She had a CT of the abdomen and pelvis without any significant findings for her complaints. She has had multiple EGDs done in the past. Her most current done on 02/10/[address] Stewart with findings of mild antral gastritis. She has a history of a Demetris fundoplication done [place] [address] Stewart. Unclear etiology of patient's symptoms. Cardiology is working patient up as an outpatient. Recommend continuing follow-up with Dr. Horne for IBS. Continue PPI, small frequent meals, cut up food in smaller pieces and chew well due to previous Demetris fundoplication. Current Visit: Yes Status: Acute Code(s): R11.0 - NAUSEA SNOMED Code(s): 502775417 Plan: 1. Continue symptomatic and supportive care 2. Continue with Protonix daily 3. Antiemetics as needed 4. Continue follow-up with Dr. Arnett outpatient for IBS 5. No plans on endoscopic evaluation at this time Thank you for this consultation, patient is cleared from gastroenterology for discharge. Dr. Jack Arnett I agree with the dictator's note, documented as a scribe by Kerrie Rajput.
== END 2022-04-11 17:00 | disposition home or self-care (01) ==
LOC: EC 09:18 → 6NMEDSUR 12:10
PROVIDERS: ADMIT Family Medicine; ATTEND Family Medicine
DX: N13.30 Unspecified hydronephrosis (principal); R11.0 Nausea; E78.5 Hyperlipidemia, unspecified; E87.2 Acidosis; K76.0 Fatty (change of) liver, not elsewhere classified; R00.1 Bradycardia, unspecified; K58.9 Irritable bowel syndrome, unspecified; J44.9 Chronic obstructive pulmonary disease, unspecified; K21.9 Gastro-esophageal reflux disease without esophagitis; Z86.79 Personal history of other diseases of the circulatory system; Z86.010 Personal history of colon polyps; G47.33 Obstructive sleep apnea (adult) (pediatric); Z90.49 Acquired absence of other specified parts of digestive tract; Z98.51 Tubal ligation status; Z98.890 Other specified postprocedural states; Z87.891 Personal history of nicotine dependence; Z82.5 Family history of asthma and other chronic lower respiratory diseases; Z82.49 Family history of ischemic heart disease and other diseases of the circulatory system; Z79.899 Other long term (current) drug therapy; Z86.718 Personal history of other venous thrombosis and embolism; Z87.442 Personal history of urinary calculi; Z88.8 Allergy status to other drugs, medicaments and biological substances; Z91.09 Other allergy status, other than to drugs and biological substances; F43.10 Post-traumatic stress disorder, unspecified; G43.909 Migraine, unspecified, not intractable, without status migrainosus; J30.9 Allergic rhinitis, unspecified
CPT/HCPCS: 96376 ×3; 96361 ×2; 96375 ×3; 96374; 99285; 36415; 93005; 80053; 82150; 83605; 83690; 84484; 85025; 85610; 85730; 81003; 93971; 74177; G0378 ×3; J2270 ×3; J2405; J1885 ×3; C9113 ×2; J1170; Q9967

== ENCOUNTER 2022-07-14 20:37 | Observation (INO) | payer MEDICARE ==
--- NOTE | 2022-07-14 21:18 | ED ---
General Adult HPI - General Chief complaint: Chest Pain Stated complaint: Chest pressure, nausea, vomiting Time Seen by Provider: 07/14/22 21:16 Source: patient Mode of arrival: wheelchair Limitations: no limitations - History of Present Illness Initial comments: Patient presents to the ED with her daughter for evaluation. Patient states that she has had episodes of generalized abdominal pain, diaphoresis, nausea and vomiting all of her life. Patient states that these episodes became more frequent since she has become older, and she states that she now has these episodes about once a month. Patient states that she sometimes does not need to come to the ED for the symptoms. Patient states that these symptoms returned 2 days ago, and she has not been able to get them under control, so she has come to the ED. Patient also states that she has had diffuse chest "heaviness" since yesterday, which she has also had in the past with the symptoms. Patient admits to having diarrhea, but she states that she has IBS, and she states that she has chronic diarrhea. Patient denies trauma or injury, fever or chills, headache, focal numbness/weakness/neuro deficit, neck/arm/jaw/back pain, pleuritic pain, dyspnea, cough or cold symptoms, palpitations, dizziness, syncope, constipation, bloody or melanotic stool, hematemesis, dysuria or urinary symptoms, decreased urine output, leg or calf swelling or pain, or any other symptoms or complaints. - Related Data Home Medications Medication Instructions Recorded Confirmed Albuterol Inhaler [Ventolin Hfa 2 puff INHALATION RT-Q4H PRN 04/12/15 07/14/22 Inhaler] DULoxetine HCL [Cymbalta] 60 mg PO BID 12/23/18 07/14/22 Montelukast Sodium [Singulair] 10 mg PO DAILY 01/14/19 07/14/22 Atorvastatin [Lipitor] 20 mg PO DAILY 04/07/22 07/14/22 Diphenoxylate HCl/Atropine 2 tab PO TID 04/07/22 07/14/22 [Lomotil 2.5-0.025 mg Tablet] Omeprazole 20 mg PO DAILY 04/07/22 07/14/22 Ubidecarenone [Coenzyme Q10] 200 mg PO DAILY 04/07/22 07/14/22 Ergocalciferol (Vitamin D2) 1,250 mcg PO OSCAR 07/14/22 07/14/22 [Drisdol (50,000 Iu)] Allergies Allergy/AdvReac Type Severity Reaction Status Date / Time grass pollen Allergy Wheezing Verified 07/14/22 21:54 mold Allergy Wheezing Verified 07/14/22 21:54 tree and shrub pollen Allergy Wheezing Verified 07/14/22 21:54 pravastatin AdvReac SLURRING Verified 07/14/22 21:54 OF SPEECH environmental AdvReac Wheezing Uncoded 07/14/22 20:42 Review of Systems ROS Statement: Those systems with pertinent positive or pertinent negative responses have been documented in the HPI. ROS Other: All systems not noted in ROS Statement are negative. Past Medical History Past Medical History: Asthma, COPD, Deep Vein Thrombosis (DVT), GERD/Reflux, Hyperlipidemia, Osteoarthritis (OA), Sleep Apnea/CPAP/BIPAP Additional Past Medical History / Comment(s): Pt recently admitted to [facility] on 04/07/22 with chronic intermittent N/V and had suspected vasovagal bradycardia. Other hx: Antral gastritis, IBS, benign colon polyp, mild hepatomegaly/hepatic steatosis, nephrolithiasis, DVT L leg post op, recently tx for L sciatica, LEODAN with Cpap, Louis's palsey, "borderline diabetic" History of Any Multi-Drug Resistant Organisms: None Reported Past Surgical History: Breast Surgery, Cholecystectomy, Hernia Repair, Orthopedic Surgery, Tubal Ligation Additional Past Surgical History / Comment(s): L knee arthroscopy, L hand surgery to sand down calcium buildup, R breast lumpectomies, Demetris, EGD, colonoscopy/benign polyp, lasik eye surgery. Past Anesthesia/Blood Transfusion Reactions: No Reported Reaction Additional Past Anesthesia/Blood Transfusion Reaction / Comment(s): no hx blood transfusion Past Psychological History: Depression, PTSD Smoking Status: Former smoker Past Alcohol Use History: None Reported Past Drug Use History: None Reported - Past Family History Mother Family Medical History: Asthma Additional Family Medical History / Comment(s): from ruptued aa General Exam Limitations: no limitations General appearance: alert, in no apparent distress Head exam: Present: atraumatic, normocephalic Eye exam: Present: normal appearance, EOMI ENT exam: Present: mucous membranes moist Neck exam: Present: other (Trachea is in midline) Respiratory exam: Present: normal lung sounds bilaterally. Absent: respiratory distress, wheezes, rales, rhonchi, stridor Cardiovascular Exam: Present: regular rate, normal rhythm, normal heart sounds, other (Normal radial pulses bilaterally) GI/Abdominal exam: Present: soft. Absent: distended, tenderness, guarding Extremities exam: Absent: tenderness, pedal edema, calf tenderness Neurological exam: Present: alert, oriented X3. Absent: motor sensory deficit Psychiatric exam: Present: normal affect, normal mood Skin exam: Present: warm, dry, intact, normal color Course Vital Signs 07/14/22 07/14/22 07/14/22 20:40 20:52 21:43 Temperature 98.1 F Pulse Rate 64 64 66 Respiratory 18 20 20 Rate Blood Pressure 146/78 144/84 170/124 O2 Sat by Pulse 99 100 100 Oximetry 07/14/22 22:19 Temperature Pulse Rate Respiratory 16 Rate Blood Pressure O2 Sat by Pulse Oximetry - Reevaluation(s) Reevaluation #1: 07/14/22 23:35 Patient states that her symptoms have not improved at all with ED treatment, and she states that she is still not feeling well. Patient states that the last time she had these symptoms and was discharged from the ED, she returned and was admitted for 5 days. Patient feels that she should be admitted to the hospital. Patient denies development of any new symptoms while in the ED. Patient's abdomen remains soft and nontender on exam. Patient and daughter are aware the patient's test results, and they both agree with hospital admission at this time. 07/14/22 23:52 Case, H&P, test results and ED management thus far were discussed with KALYAN Uribe. She accepts hospital admission on behalf of herself and Dr. Mitchell. She has no further recommendations at this time. EKG Findings - EKG Comments: EKG Findings:: Sinus bradycardia, ventricular rate of 57 bpm, no ectopy, normal SC and QRS intervals, normal QT interval, normal axis, no ST or T-wave abnormality Medical Decision Making - Medical Decision Making Patient reports having similar symptoms multiple times in the past. Patient states that she has these episodes about once a month now. Patient is afebrile. Patient's abdomen is soft and nontender on exam. Will admit the patient to the hospital for symptom control, observation and further evaluation. Patient's troponin is negative. KALYAN Uribe has accepted admission on behalf of herself and Dr. Mitchell. - Lab Data Result diagrams: 07/14/22 21:33 07/14/22 21:33 Lab Results 07/14/22 07/14/22 07/14/22 Range/Units 21:33 21:33 21:33 WBC 16.4 H (3.8-10.6) k/uL RBC 4.81 (3.80-5.40) m/uL Hgb 15.6 (11.4-16.0) gm/dL Hct 43.8 (34.0-46.0) % MCV 91.0 (80.0-100.0) fL MCH 32.4 (25.0-35.0) pg MCHC 35.6 (31.0-37.0) g/dL RDW 12.2 (11.5-15.5) % Plt Count 277 (150-450) k/uL MPV 10.4 Neutrophils % 81 % Lymphocytes % 12 % Monocytes % 6 % Eosinophils % 0 % Basophils % 0 % Neutrophils # 13.3 H (1.3-7.7) k/uL Lymphocytes # 1.9 (1.0-4.8) k/uL Monocytes # 1.0 (0-1.0) k/uL Eosinophils # 0.0 (0-0.7) k/uL Basophils # 0.1 (0-0.2) k/uL PT 10.3 (9.0-12.0) sec INR 0.9 (<1.2) APTT 22.2 (22.0-30.0) sec Sodium 137 (137-145) mmol/L Potassium 3.7 (3.5-5.1) mmol/L Chloride 103 (98-107) mmol/L Carbon Dioxide 18 L (22-30) mmol/L Anion Gap 16 mmol/L BUN 12 (7-17) mg/dL Creatinine 0.72 (0.52-1.04) mg/dL Est GFR (CKD-EPI)AfAm >90 (>60 ml/min/1.73 sqM) Est GFR (CKD-EPI)NonAf >90 (>60 ml/min/1.73 sqM) Glucose 131 H (74-99) mg/dL Calcium 9.8 (8.4-10.2) mg/dL Magnesium 1.8 (1.6-2.3) mg/dL Total Bilirubin 1.8 H (0.2-1.3) mg/dL AST 24 (14-36) U/L ALT 19 (4-34) U/L Alkaline Phosphatase 90 (38-126) U/L Troponin I (0.000-0.034) ng/mL NT-Pro-B Natriuret Pep pg/mL Total Protein 7.3 (6.3-8.2) g/dL Albumin 4.9 (3.5-5.0) g/dL Lipase 62 (23-300) U/L 07/14/22 07/14/22 Range/Units 21:33 21:33 WBC (3.8-10.6) k/uL RBC (3.80-5.40) m/uL Hgb (11.4-16.0) gm/dL Hct (34.0-46.0) % MCV (80.0-100.0) fL MCH (25.0-35.0) pg MCHC (31.0-37.0) g/dL RDW (11.5-15.5) % Plt Count (150-450) k/uL MPV Neutrophils % % Lymphocytes % % Monocytes % % Eosinophils % % Basophils % % Neutrophils # (1.3-7.7) k/uL Lymphocytes # (1.0-4.8) k/uL Monocytes # (0-1.0) k/uL Eosinophils # (0-0.7) k/uL Basophils # (0-0.2) k/uL PT (9.0-12.0) sec INR (<1.2) APTT (22.0-30.0) sec Sodium (137-145) mmol/L Potassium (3.5-5.1) mmol/L Chloride (98-107) mmol/L Carbon Dioxide (22-30) mmol/L Anion Gap mmol/L BUN (7-17) mg/dL Creatinine (0.52-1.04) mg/dL Est GFR (CKD-EPI)AfAm (>60 ml/min/1.73 sqM) Est GFR (CKD-EPI)NonAf (>60 ml/min/1.73 sqM) Glucose (74-99) mg/dL Calcium (8.4-10.2) mg/dL Magnesium (1.6-2.3) mg/dL Total Bilirubin (0.2-1.3) mg/dL AST (14-36) U/L ALT (4-34) U/L Alkaline Phosphatase (38-126) U/L Troponin I <0.012 (0.000-0.034) ng/mL NT-Pro-B Natriuret Pep 744 pg/mL Total Protein (6.3-8.2) g/dL Albumin (3.5-5.0) g/dL Lipase (23-300) U/L - Radiology Data Chest x-ray: Normal chest. No change. Disposition Clinical Impression: Chest pain, Nausea & vomiting, Abdominal pain Disposition: ADMITTED IP TO THIS HOSP Condition: Stable Is patient prescribed a controlled substance at d/c from ED?: No Referrals: Ariella Espana DO [Primary Care Provider] - 1-2 days Time of Disposition: 23:52
[2022-07-14] MEDS ORDERED: SODIUM CHLORIDE 0.9% 1,000 ML IV STA (21:25)
[2022-07-14] MEDS ORDERED: ONDANSETRON 4 MG/2 ML VIAL IVP STA ×2 (21:25→23:36)
[2022-07-14] MEDS ORDERED: MORPHINE SULFATE 4 MG/ML SYRINGE IV STA (21:25)
[2022-07-14 21:41] LABS: Basophils # (A) 0.1 k/uL (0-0.2); Basophils % (A) 0 %; Eosinophils % (A) 0 %; HCT 43.8 % (34.0-46.0); HGB 15.6 gm/dL (11.4-16.0); Lymphocytes # (A) 1.9 k/uL (1.0-4.8); Lymphocytes % (A) 12 %; MCH 32.4 pg (25.0-35.0); MCHC 35.6 g/dL (31.0-37.0); Mean Platelet Volume 10.4; Monocytes % (A) 6 %; Neutrophils # (A) 13.3 k/uL (1.3-7.7); Neutrophils % (A) 81 %; Platelet Count 277 k/uL (150-450); RBC 4.81 m/uL (3.80-5.40); RDW 12.2 % (11.5-15.5); WBC 16.4 k/uL (3.8-10.6)
[2022-07-14 21:45] LABS: ALT 19 U/L (4-34); AST 24 U/L (14-36); African American GFR (CKD) >90 (>60 ml/min/1.73 sqM); Albumin 4.9 g/dL (3.5-5.0); Alkaline Phosphatase 90 U/L (38-126); Anion Gap 16 mmol/L; Blood Urea Nitrogen 12 mg/dL (7-17); Calcium 9.8 mg/dL (8.4-10.2); Carbon Dioxide 18 mmol/L (22-30); Chloride 103 mmol/L (98-107); Glucose 131 mg/dL (74-99); Lipase 62 U/L (23-300); Magnesium 1.8 mg/dL (1.6-2.3); Non-African American GFR(CKD) >90 (>60 ml/min/1.73 sqM); Potassium 3.7 mmol/L (3.5-5.1); Sodium 137 mmol/L (137-145); Total Bilirubin 1.8 mg/dL (0.2-1.3); Total Protein 7.3 g/dL (6.3-8.2)
--- NOTE | 2022-07-14 21:51 | XR ---
EXAMINATION TYPE: XR chest 1V portable DATE OF EXAM: 07/14/2022 COMPARISON: 04/07/2020 HISTORY: Chest pain TECHNIQUE: Two-view FINDINGS: Heart and mediastinum are normal. Lungs are clear. Diaphragm is normal. Bone thorax is inta ct. IMPRESSION: Normal chest. No change.
[2022-07-14 22:01] LABS: INR 0.9 (<1.2); Partial Thromboplastin Time 22.2 sec (22.0-30.0); Prothrombin Time 10.3 sec (9.0-12.0)
[2022-07-14] MEDS ORDERED: SODIUM CHLORIDE 0.9% 500 ML 500 ML IV ONE (23:37)
[2022-07-14] MEDS ORDERED: ONDANSETRON 4 MG/2 ML VIAL IVP PRN (23:40)
[2022-07-14] MEDS ORDERED: NALOXONE 0.4 MG/ML 1 ML VIAL IV PRN (23:40)
[2022-07-14] MEDS ORDERED: HYDROmorphone 0.5 MG/0.5 ML SYRINGE IVP PRN (23:40)
[2022-07-14] MEDS: SODIUM CHLORIDE 0.9% 1,000 ML IV SCH (23:55)
[2022-07-15 03:32] LABS: Basophils % (A) 0 %; Eosinophils % (A) 0 %; HCT 38.5 % (34.0-46.0); HGB 13.1 gm/dL (11.4-16.0); Lymphocytes # (A) 1.6 k/uL (1.0-4.8); Lymphocytes % (A) 16 %; MCV 94.3 fL (80.0-100.0); Mean Platelet Volume 9.6; Monocytes # (A) 0.5 k/uL (0-1.0); Monocytes % (A) 5 %; Neutrophils # (A) 7.9 k/uL (1.3-7.7); Neutrophils % (A) 78 %; Platelet Count 195 k/uL (150-450); RBC 4.09 m/uL (3.80-5.40); RDW 12.2 % (11.5-15.5); WBC 10.1 k/uL (3.8-10.6)
[2022-07-15 04:05] LABS: ALT 24 U/L (4-34); AST 28 U/L (14-36); African American GFR (CKD) >90 (>60 ml/min/1.73 sqM); Albumin 3.6 g/dL (3.5-5.0); Alkaline Phosphatase 62 U/L (38-126); Anion Gap 5 mmol/L; Blood Urea Nitrogen 10 mg/dL (7-17); Calcium 8.2 mg/dL (8.4-10.2); Carbon Dioxide 24 mmol/L (22-30); Chloride 107 mmol/L (98-107); Glucose 109 mg/dL (74-99); Non-African American GFR(CKD) >90 (>60 ml/min/1.73 sqM); Potassium 3.8 mmol/L (3.5-5.1); Sodium 136 mmol/L (137-145); Total Bilirubin 1.3 mg/dL (0.2-1.3); Total Protein 5.6 g/dL (6.3-8.2)
[2022-07-15] MEDS: SODIUM CHLORIDE 0.9% 1,000 ML IV SCH ×2 (08:00→20:13)
--- NOTE | 2022-07-15 12:47 | P.CRDCN ---
History of Present Illness History of present illness: HISTORY OF PRESENT ILLNESS: This is a 57-year-old female with a past medical history significant for hyperlipidemia, GERD, IBS, COPD, and DVT. Patient follows in the office with Dr. Nicholson. We have been asked to see the patient in consultation for chest pain. Patient examined at the bedside. Patient presented to the hospital with a chief complaint of nausea, vomiting, and abdominal pain for the past week. She also reports having some chest heaviness that started Friday. She currently denies any chest pain or pressure. Denies SOB. She gives history that over the past few months she has been having episodes of abdominal pain that lead to diarrhea and severe diaphoresis. She denies having any syncopal episodes. * EKG reveals sinus bradycardia with no signs of acute ischemia * Chest xray negative for acute process * laboratory data includes WBC 10.6 on admission. Repeat 10.1. Hemoglobin 13.1. Platelet count 195. sodium 136. Potassium 3.8. BUN 10. Creatinine 0.73. Troponin negative 3. * Current home cardiac medications include Lipitor 20 mg daily * Most recent echocardiogram obtained in March 2022 revealed ejection fraction 55-60% with trace MR and trace TR. REVIEW OF SYSTEMS: At the time of my exam: CONSTITUTIONAL: Denies fever or chills. HEENT: Denies blurred vision, vision changes, or eye pain. Denies hemoptysis CARDIOVASCULAR: Denies chest pain. Denies orthopnea. Denies PND. Denies palpitations RESPIRATORY: Denies shortness of breath. GASTROINTESTINAL: Denies abdominal pain. Denies nausea or vomiting. HEMATOLOGIC: Denies bleeding disorders. GENITOURINARY: Denies any blood in urine. SKIN: Denies pruitis. Denies rash. PHYSICAL EXAM: VITAL SIGNS: Reviewed. GENERAL: Well-developed in no acute distress. HEENT: Head is normocephalic. Pupils are equal, round. Sclerae anicteric. Mucous membranes of the mouth are moist. Neck supple. No JVD or thyromegaly LUNGS: Respirations even and unlabored. Lungs essentially clear to auscultation bilaterally. HEART: Regular rate and rhythm. S1 and S2 heard. ABDOMEN: Soft. Nondistended. Nontender. EXTREMITIES: Normal range of motion. No clubbing or cyanosis. Peripheral pulses intact. No lower extremity edema NEUROLOGIC: Awake and alert. Oriented x 3. ASSESSMENT: Sbdominal pain Chest pain, troponins negative 3 History of sinus bradycardia History of near syncope Hyperlipidemia GERD IBS COPD History of DVT History of Demetris fundoplication PLAN: An acute coronary event has been ruled out Patient to have outpatient stress testing performed Dr. Freeman believes patients symptoms may be related to her Demetris fundoplication Patient had a CT scan performed in March [address]. [address]. Freeman recommends radiology re-evaluating imaging and commenting on arteries that supply the intestines. Th is was communicated to Tamera Mayorga NP with internal medicine and will defer to their management. Patient may be discharged from a cardiac standpoint. Nurse practitioner note has been reviewed by physician. Signing provider agrees with the documented findings, assessment, and plan of care. Past Medical History Past Medical History: Asthma, COPD, Deep Vein Thrombosis (DVT), GERD/Reflux, Hyperlipidemia, Osteoarthritis (OA), Sleep Apnea/CPAP/BIPAP Additional Past Medical History / Comment(s): Pt recently admitted to [facility] on 04/07/22 with chronic intermittent N/V and had suspected vasovagal bradycardia. Other hx: Antral gastritis, IBS, benign colon polyp, mild hepatomegaly/hepatic steatosis, nephrolithiasis, DVT L leg post op, recently tx for L sciatica, LEODAN with Cpap, Louis's palsey, "borderline diabetic" History of Any Multi-Drug Resistant Organisms: None Reported Past Surgical History: Breast Surgery, Cholecystectomy, Hernia Repair, Orthopedic Surgery, Tubal Ligation Additional Past Surgical History / Comment(s): L knee arthroscopy, L hand surgery to sand down calcium buildup, R breast lumpectomies, Demetris, EGD, co lonoscopy/benign polyp, lasik eye surgery. Past Anesthesia/Blood Transfusion Reactions: No Reported Reaction Additional Past Anesthesia/Blood Transfusion Reaction / Comment(s): no hx blood transfusion Past Psychological History: Depression, PTSD Smoking Status: Former smoker Past Alcohol Use History: None Reported Past Drug Use History: None Reported - Past Family History Mother Family Medical History: Asthma Additional Family Medical History / Comment(s): from ruptued aa Medications and Allergies Home Medications Medication Instructions Recorded Confirmed Type Albuterol Inhaler [Ventolin Hfa 2 puff INHALATION RT-Q4H PRN 04/12/15 07/14/22 History Inhaler] DULoxetine HCL [Cymbalta] 60 mg PO BID 12/23/18 07/14/22 History Montelukast Sodium [Singulair] 10 mg PO DAILY 01/14/19 07/14/22 History Atorvastatin [Lipitor] 20 mg PO DAILY 04/07/22 07/14/22 History Diphenoxylate HCl/Atropine 2 tab PO TID 04/07/22 07/14/22 History [Lomotil 2.5-0.025 mg Tablet] Omeprazole 20 mg PO DAILY 04/07/22 07/14/22 History Ubidecarenone [Coenzyme Q10] 200 mg PO DAILY 04/07/22 07/14/22 History Ergocalciferol (Vitamin D2) 1,250 mcg PO OSCAR 07/14/22 07/14/22 History [Drisdol (50,000 Iu)] Allergies Allergy/AdvReac Type Severity Reaction Status Date / Time grass pollen Allergy Wheezing Verified 07/14/22 21:54 mold Allergy Wheezing Verified 07/14/22 21:54 tree and shrub pollen Allergy Wheezing Verified 07/14/22 21:54 pravastatin AdvReac SLURRING Verified 07/14/22 21:54 OF SPEECH environmental AdvReac Wheezing Uncoded 07/14/22 20:42 Physical Exam Vitals: Vital Signs Temp Pulse Resp BP Pulse Ox 07/15/22 06:34 60 18 98 07/15/22 05:11 74 16 108/54 97 07/15/22 03:53 60 18 103/60 97 07/15/22 02:37 74 18 152/80 97 07/14/22 22:19 16 07/14/22 21:43 66 20 170/124 100 07/14/22 20:52 64 20 144/84 100 07/14/22 20:40 98.1 F 64 18 146/78 99 Intake and Output 07/14/22 07/15/22 07/15/22 22:59 06:59 14:59 Other: Weight 74.843 kg Results 07/15/22 03:17 07/15/22 03:17 Cardiac Enzymes 07/14/22 07/14/22 07/15/22 Range/Units 21:33 21:33 00:48 AST 24 (14-36) U/L Troponin I <0.012 <0.012 (0.000-0.034) ng/mL 07/15/22 07/15/22 Range/Units 03:17 03:17 AST 28 (14-36) U/L Troponin I <0.012 (0.000-0.034) ng/mL Coagulation 07/14/22 Range/Units 21:33 PT 10.3 (9.0-12.0) sec APTT 22.2 (22.0-30.0) sec CBC 07/14/22 07/15/22 Range/Units 21:33 03:17 WBC 16.4 H 10.1 (3.8-10.6) k/uL RBC 4.81 4.09 (3.80-5.40) m/uL Hgb 15.6 13.1 (11.4-16.0) gm/dL Hct 43.8 38.5 (34.0-46.0) % Plt Count 277 195 (150-450) k/uL Comprehensive Metabolic Panel 07/14/22 07/15/22 Range/Units 21:33 03:17 Sodium 137 136 L (137-145) mmol/L Potassium 3.7 3.8 (3.5-5.1) mmol/L Chloride 103 107 (98-107) mmol/L Carbon Dioxide 18 L 24 (22-30) mmol/L BUN 12 10 (7-17) mg/dL Creatinine 0.72 0.73 (0.52-1.04) mg/dL Glucose 131 H 109 H (74-99) mg/dL Calcium 9.8 8.2 L (8.4-10.2) mg/dL AST 24 28 (14-36) U/L ALT 19 24 (4-34) U/L Alkaline Phosphatase 90 62 (38-126) U/L Total Protein 7.3 5.6 L (6.3-8.2) g/dL Albumin 4.9 3.6 (3.5-5.0) g/dL Current Medications Generic Name Dose Route Start Last Admin Trade Name Freq PRN Reason Stop Dose Admin Hydromorphone HCl 0.5 mg 07/14/22 23:40 07/15/22 02:12 Hydromorphone 0.5 Mg/0.5 Ml Syringe IVP 0.5 mg Q3HR PRN Administration Moderate Pain (Scale 4 to 6) Sodium Chloride 1,000 mls @ 100 mls/hr 07/14/22 23:45 07/14/22 23:55 Saline 0.9% IV 100 mls/hr .Q10H LIBBY Administration Naloxone HCl 0.2 mg 07/14/22 23:40 Naloxone 0.4 Mg/Ml 1 Ml Vial IV Q2M PRN Opioid Reversal Ondansetron HCl 4 mg 07/14/22 23:40 Ondansetron 4 Mg/2 Ml Vial IVP Q8HR PRN Nausea And Vomiting Intake and Output 07/14/22 07/15/22 07/15/22 22:59 06:59 14:59 Other: Weight 74.843 kg 07/15/22 03:17 07/15/22 03:17
--- NOTE | 2022-07-15 15:36 | P.HPIM ---
History of Present Illness H&P Date: 07/15/22 Chief Complaint: Abdominal pain, chest pain, nausea, vomiting This is a 57-year-old female with PMH of GERD, s/p jairon fundoplication, IBS, COPD, hx DVT who presented to the ER with complains of intermittent nausea, vomiting, abdominal pain, 2-3 days accompanied by midsternal chest pressure nonradiating lasting for a few seconds.She states this usually occurs monthly ever since her jairon procedure and at one point she saw [facility] and was recommended reversal but never followed through with this. Patient does follow with Dr. Tabatha Arnett,GI, regarding her IBS.Denies fever, chills, diarrhea. Evaluated by cardiology with no intervention recommended at this time. On adm ission, afebrile, heart rate 64, respiratory 18, blood pressure 146/78 maintaining O2 sats of 99% on room air, WBC 16.4-normalized, hemoglobin 15.6, BUN 12, creatinine 0.72. Troponin is negative 3, EKG reporting sinus bradycardia ,potassium 3.7, magnesium 1.8, pro BNP 744. Chest x-ray normal, no change. Patient is currently asymptomatic, maintained on PPI. Review of Systems ROS Statement: Those systems with pertinent positive or pertinent negative responses have been documented in the HPI. ROS Other: All systems not noted in ROS Statement are negative. Past Medical History Past Medical History: Asthma, COPD, Deep Vein Thrombosis (DVT), GERD/Reflux, Hyperlipidemia, Osteoarthritis (OA), Sleep Apnea/CPAP/BIPAP Additional Past Medical History / Comment(s): Pt recently admitted to [facility] on 04/07/22 with chronic intermittent N/V and had suspected vasovagal bradycardia. Other hx: Antral gastritis, IBS, benign colon polyp, mild hepatomegaly/hepatic steatosis, nephrolithiasis, DVT L leg post op, recently tx for L sciatica, LEODAN with Cpap, Louis's palsey, "borderline diabetic" History of Any Multi-Drug Resistant Organisms: None Reported Past Surgical History: Breast Surgery, Cholecystectomy, Hernia Repair, Orthopedic Surgery, Tubal Ligation Additional Past Surgical History / Comment(s): L knee arthroscopy, L hand surgery to sand down calcium buildup, R breast lumpectomies, Jairon, EGD, colonoscopy/benign polyp, lasik eye surgery. Past Anesthesia/Blood Transfusion Reactions: No Reported Reaction Additional Past Anesthesia/Blood Transfusion Reaction / Comment(s): no hx blood transfusion Past Psychological History: Depression, PTSD Smoking Status: Former smoker Past Alcohol Use History: None Reported Past Drug Use History: None Reported - Past Family History Mother Family Medical History: Asthma Additional Family Medical History / Comment(s): from ruptued aa Medications and Allergies Home Medications Medication Instructions Recorded Confirmed Type Albuterol Inhaler [Ventolin Hfa 2 puff INHALATION RT-Q4H PRN 04/12/15 07/14/22 History Inhaler] DULoxetine HCL [Cymbalta] 60 mg PO BID 12/23/18 07/14/22 History Montelukast Sodium [Singulair] 10 mg PO DAILY 01/14/19 07/14/22 History Atorvastatin [Lipitor] 20 mg PO DAILY 04/07/22 07/14/22 History Diphenoxylate HCl/Atropine 2 tab PO TID 04/07/22 07/14/22 History [Lomotil 2.5-0.025 mg Tablet] Omeprazole 20 mg PO DAILY 04/07/22 07/14/22 History Ubidecarenone [Coenzyme Q10] 200 mg PO DAILY 04/07/22 07/14/22 History Ergocalciferol (Vitamin D2) 1,250 mcg PO OSCAR 07/14/22 07/14/22 History [Drisdol (50,000 Iu)] Allergies Allergy/AdvReac Type Severity Reaction Status Date / Time grass pollen Allergy Wheezing Verified 07/14/22 21:54 mold Allergy Wheezing Verified 07/14/22 21:54 tree and shrub pollen Allergy Wheezing Verified 07/14/22 21:54 pravastatin AdvReac SLURRING Verified 07/14/22 21:54 OF SPEECH environmental AdvReac Wheezing Uncoded 07/14/22 20:42 Physical Exam Vitals: Vital Signs Temp Pulse Resp BP Pulse Ox 07/15/22 06:34 60 18 98 07/15/22 05:11 74 16 108/54 97 07/15/22 03:53 60 18 103/60 97 07/15/22 02:37 74 18 152/80 97 07/14/22 22:19 16 07/14/22 21:43 66 20 170/124 100 07/14/22 20:52 64 20 144/84 100 07/14/22 20:40 98.1 F 64 18 146/78 99 General: well developed, well nourished female in NAD HEENT: Normocephalic, atraumatic, mucus membranes moist Neck: supple, no thyromegaly or JVD CV: RRR, no murmur. Pulses 2+ Lungs: Normal effort, clear throughout Abd: soft, nondistended, nontender, no guarding, no rigidity, bowel sounds present Neuro: alert and oriented x3, no focal deficit Skin: warm and dry Results CBC & Chem 7: 07/15/22 03:17 07/15/22 03:17 Labs: Abnormal Lab Results - Last 24 Hours (Table) 07/14/22 07/14/22 07/15/22 Range/Units 21:33 21:33 03:17 WBC 16.4 H (3.8-10.6) k/uL Neutrophils # 13.3 H 7.9 H (1.3-7.7) k/uL Sodium (137-145) mmol/L Carbon Dioxide 18 L (22-30) mmol/L Glucose 131 H (74-99) mg/dL Calcium (8.4-10.2) mg/dL Total Bilirubin 1.8 H (0.2-1.3) mg/dL Total Protein (6.3-8.2) g/dL 07/15/22 Range/Units 03:17 WBC (3.8-10.6) k/uL Neutrophils # (1.3-7.7) k/uL Sodium 136 L (137-145) mmol/L Carbon Dioxide (22-30) mmol/L Glucose 109 H (74-99) mg/dL Calcium 8.2 L (8.4-10.2) mg/dL Total Bilirubin (0.2-1.3) mg/dL Total Protein 5.6 L (6.3-8.2) g/dL Assessment and Plan Assessment: Chronic Intractable, intermittent nausea vomiting, abdominal pain, suspect seco ndary to IBS, worsened by scar tissue, CT ordered Chest pressure, troponins negative 3 cardiology consulted. History of Sinus bradycardia Gastroesophageal reflux disease Chronic intermittent Asthma, COPD, stable, Obstructive sleep apnea IBS History of mild hepatomegaly with Hepatic steatosis Depression PTSD Prior history of nicotine dependence, quit in 2011 Obesity, BMI 30.2 Plan: Continue on current medication regime ,monitoring and symptomatic treatment. NPO, CT of abdomen and pelvis ordered. Evaluated by cardiology with no further intervention recommended at this time. Discharge planning in progress pending CT. The impression and plan of care has been dictated as directed. : I performed a history and examination of this patient, discussed the same with the dictator. I agree with the dictator's note ,documented as a scribe. Any additional findings or plans will be noted.
[2022-07-15] MEDS ORDERED: ALBUTEROL HFA INHALER INHALATION PRN (15:41)
--- NOTE | 2022-07-15 16:01 | CT ---
EXAMINATION TYPE: CT abdomen pelvis wo con DATE OF EXAM: 07/15/2022 COMPARISON: 07/15/22 HISTORY: Abdominal pain CT DLP: 649.8 mGycm Examination of the solid and hollow viscera is limited given the lack of contrast. FINDINGS: LUNG BASES: No evidence for nodule. No evidence for infiltrate. LIVER/GB: The gallbladder surgically absent. No space-occupying hepatic lesion. PANCREAS: No pancreatic mass identified. No inflammatory process seen. SPLEEN: No evidence for splenomegaly. No intrasplenic lesions seen. ADRENALS: No adrenal nodules identified. No evidence for thickening. KIDNEYS: No evidence for renal mass. No nephrolithiasis. No hydronephrosis. BOWEL: Appendix has a normal appearance. No evidence of bowel obstruction. No inflammatory process. Lymph nodes: No evidence for adenopathy greater than 1 cm. Abdominal aorta: Atheromatous changes seen. No evidence for aneurysm. Genital organs: No significant abnormality. Other: No significant abnormality. IMPRESSION: NO ACUTE INTRA-ABDOMINAL PROCESS TO ACCOUNT FOR THE PATIENT'S SYMPTOMS.
[2022-07-15] MEDS: PANTOPRAZOLE 40 MG/10 ML VIAL IVP SCH (19:18)
[2022-07-15 19:52] LABS: Chol/HDL Ratio 3.12 Ratio; LDL Cholesterol,Calculated 77.1 mg/dL (0.0-131.0)
[2022-07-15] MEDS: DULoxetine HCL 60 MG CAPSULE.DR PO SCH (20:12)
[2022-07-16] MEDS: SODIUM CHLORIDE 0.9% 1,000 ML IV SCH (05:02)
[2022-07-16] MEDS ORDERED: MONTELUKAST 10 MG TAB PO SCH (09:00)
[2022-07-16] MEDS: PANTOPRAZOLE 40 MG/10 ML VIAL IVP SCH (09:58)
[2022-07-16] MEDS: DULoxetine HCL 60 MG CAPSULE.DR PO SCH (09:58)
--- NOTE | 2022-07-16 10:39 | P.DS ---
Providers Date of admission: 07/14/22 23:40 Expected date of discharge: 07/16/22 Attending physician: Santo Holden MD Consults: 07/15/22 09:14 Consult Physician Routine Consulting Provider: Torres Nicholson Consult Reason/Comments: Chest pain Do you want consulting provider notified?: Yes Primary care physician: Ariella Espana [facility] Course: Final Diagnoses: Chronic Intractable, intermittent nausea vomiting, abdominal pain, suspect secondary to IBS, jairon, worsened by scar tissue. Chest pressure, troponins negative 3, acute coronary event ruled out, scheduled for outpatient stress test as per cardiology History of Sinus bradycardia Gastroesophageal reflux disease Chronic intermittent Asthma, COPD, stable, Obstructive sleep apnea IBS History of mild hepatomegaly with Hepatic steatosis Depression PTSD Prior history of nicotine dependence, quit in 2011 Obesity, BMI 30.2 Hospital course:This is a 57-year-old female with PMH of GERD, s/p jairon fund oplication, IBS, COPD, hx DVT who presented to the ER with complains of intermittent nausea, vomiting, abdominal pain, 2-3 days accompanied by midsternal chest pressure nonradiating lasting for a few seconds.She states this usually occurs monthly ever since her jairon procedure and at one point she saw [facility] and was recommended reversal but never followed through with this. Patient does follow with Dr. Tabatha ArnettGI, regarding her IBS.Denies fever, chills, diarrhea. Evaluated by cardiology with no intervention recommended at this time. On admission, afebrile, heart rate 64, respiratory 18, blood pressure 146/78 maintaining O2 sats of 99% on room air, WBC 16.4-normalized, hemoglobin 15.6, BUN 12, creatinine 0.72. Troponin is negative 3, EKG reporting sinus bradycardia ,potassium 3.7, magnesium 1.8, pro BNP 744. Chest x-ray normal, no change. Patient is currently asymptomatic, maintained on PPI. Positive diet intake, denies nausea vomiting or diarrhea. Denies abdominal pain. CT of abdomen and pelvis reported non-acute. Denies chest pain, palpitations or shortness of breath. Significant clinical improvement. Lactobacillus added to DC med regimen. Evaluated and cleared by cardiology Patient will be discharged home today in a stable condition with guarded prognosis. The impression and plan of care has been dictated as directed. : I performed a history and examination of this patient, discussed the same with the dictator. I agree with the dictator's note ,documented as a scribe. Any additional findings or plans will be noted. Patient Condition at Discharge: Stable Plan - Discharge Summary Discharge Rx Participant: Yes New Discharge Prescriptions: New Lactobacillus Acidophilus [Acidophilus Probiotic] 1 each PO DAILY #30 capsule Continue Albuterol Inhaler [Ventolin Hfa Inhaler] 2 puff INHALATION RT-Q4H PRN PRN Reason: Shortness Of Breath DULoxetine HCL [Cymbalta] 60 mg PO BID Montelukast Sodium [Singulair] 10 mg PO DAILY Omeprazole 20 mg PO DAILY Ergocalciferol (Vitamin D2) [Drisdol (50,000 Iu)] 1,250 mcg PO OSCAR Diphenoxylate HCl/Atropine [Lomotil 2.5-0.025 mg Tablet] 2 tab PO TID Ubidecarenone [Coenzyme Q10] 200 mg PO DAILY Atorvastatin [Lipitor] 20 mg PO DAILY Discharge Medication List Albuterol Inhaler [Ventolin Hfa Inhaler] 2 puff INHALATION RT-Q4H PRN 04/12/15 [History] DULoxetine HCL [Cymbalta] 60 mg PO BID 12/23/18 [History] Montelukast Sodium [Singulair] 10 mg PO DAILY 01/14/19 [History] Atorvastatin [Lipitor] 20 mg PO DAILY 04/07/22 [History] Diphenoxylate HCl/Atropine [Lomotil 2.5-0.025 mg Tablet] 2 tab PO TID 04/07/22 [History] Omeprazole 20 mg PO DAILY 04/07/22 [History] Ubidecarenone [Coenzyme Q10] 200 mg PO DAILY 04/07/22 [History] Ergocalciferol (Vitamin D2) [Drisdol (50,000 Iu)] 1,250 mcg PO OSCAR 07/14/22 [History] Lactobacillus Acidophilus [Acidophilus Probiotic] 1 each PO DAILY #30 capsule 07/16/22 [Rx] Follow up Appointment(s)/Referral(s): Areilla Espana DO [Primary Care Provider] - 3 Days
--- NOTE | 2022-07-16 10:48 | P.PN ---
Subjective Progress Note Date: 07/16/22 HISTORY OF PRESENT ILLNESS: This is a 57-year-old female with a past medical history significant for hyperlipidemia, GERD, IBS, COPD, and DVT. Patient follows in the office with Dr. Nicholson. We have been asked to see the patient in consultation for chest pain. Patient examined at the bedside. Patient presented to the hospital with a chief complaint of nausea, vomiting, and abdominal pain for the past week. She also reports having some chest heaviness that started Friday. She currently denies any chest pain or pressure. Denies SOB. She gives history that over the past few months she has been having episodes of abdominal pain that lead to diarrhea and severe diaphoresis. She denies having any syncopal episodes. * EKG reveals sinus bradycardia with no signs of acute ischemia * Chest xray negative for acute process * laboratory data includes WBC 10.6 on admission. Repeat 10.1. Hemoglobin 13.1. Platelet count 195. sodium 136. Potassium 3.8. BUN 10. Creatinine 0.73. Troponin negative 3. * Current home cardiac medications include Lipitor 20 mg daily * Most recent echocardiogram obtained in March 2022 revealed ejection fraction 55-60% with trace MR and trace TR. 07/16/2022 Patient examined this morning at the bedside. Patient denies chest pain or pressure. She denies shortness of breath. Vital signs are stable. PHYSICAL EXAM: VITAL SIGNS: Reviewed. GENERAL: Well-developed in no acute distress. HEENT: Head is normocephalic. Pupils are equal, round. Sclerae anicteric. Mucous membranes of the mouth are moist. Neck supple. No JVD or thyromegaly LUNGS: Respirations even and unlabored. Lungs essentially clear to auscultation bilaterally. HEART: Regular rate and rhythm. S1 and S2 heard. ABDOMEN: Soft. Nondistended. Nontender. EXTREMITIES: Normal range of motion. No clubbing or cyanosis. Peripheral pulses intact. No lower extremity edema NEUROLOGIC: Awake and alert. Oriented x 3. ASSESSMENT: Abdominal pain Chest pain, troponins negative 3 History of sinus bradycardia History of near syncope Hyperlipidemia GERD IBS COPD History of DVT History of Demetris fundoplication PLAN: Patient to have outpatient stress testing performed Continue current cardiac medications Patient stable for discharge home today from a cardiac standpoint We will sign off. Please reconsult if needed. Nurse practitioner note has been reviewed by physician. Signing provider agrees with the documented findings, assessment, and plan of care. Objective - Vital Signs Vital signs: Vital Signs Temp 97.8 F 07/16/22 07:00 Pulse 50 L 07/16/22 07:00 Resp 16 07/16/22 07:00 BP 110/63 07/16/22 07:00 Pulse Ox 97 07/16/22 07:00 FiO2 Intake & Output 07/15/22 07/16/22 07/16/22 18:59 06:59 18:59 Intake Total 240 118 Balance 240 118 Weight 74.843 kg Intake: Oral 240 118 Other: Voiding Method Toilet # Voids 1 1 # Bowel Movements 0 1 - Labs CBC & Chem 7: 07/15/22 03:17 07/15/22 03:17
[2022-07-16 13:51] VITALS: BP 121/90; PULSE 78; RESP 14; TEMP 97.6
[2022-07-21] MEDS ORDERED: ERGOCALCIFEROL 1,250 MCG (50,000 IU) CAPSULE PO SCH (15:41)
== END 2022-07-16 16:11 | disposition home or self-care (01) ==
LOC: EC 20:37 → 6NMEDSUR 23:40
PROVIDERS: ADMIT Family Medicine; ATTEND Family Medicine
DX: R10.9 Unspecified abdominal pain (principal); G89.29 Other chronic pain; R07.89 Other chest pain; K58.0 Irritable bowel syndrome with diarrhea; J44.9 Chronic obstructive pulmonary disease, unspecified; K21.9 Gastro-esophageal reflux disease without esophagitis; E78.5 Hyperlipidemia, unspecified; F32.A Depression, unspecified; F43.10 Post-traumatic stress disorder, unspecified; G47.33 Obstructive sleep apnea (adult) (pediatric); R00.1 Bradycardia, unspecified; K76.0 Fatty (change of) liver, not elsewhere classified; E66.9 Obesity, unspecified; R73.03 Prediabetes; I70.0 Atherosclerosis of aorta; Z87.891 Personal history of nicotine dependence; Z79.899 Other long term (current) drug therapy; Z82.5 Family history of asthma and other chronic lower respiratory diseases; Z86.718 Personal history of other venous thrombosis and embolism; Z90.49 Acquired absence of other specified parts of digestive tract; Z98.51 Tubal ligation status; Z68.30 Body mass index [BMI] 30.0-30.9, adult
CPT/HCPCS: 96376 ×2; 96361 ×3; 96375 ×3; 96374; 99285; 36415; 93005; 83880; 80061; 80053 ×2; 83690; 83735; 84484 ×2; 85025 ×2; 85610; 85730; 83036; 71045; 74176; G0378 ×2; J2270; J2405 ×2; C9113; J1170

== ENCOUNTER → 2022-10-23 | Outpatient (CLI) | payer MEDICARE ==
--- NOTE | 2022-10-23 14:24 | MM ---
Reason for Exam: Screening (asymptomatic). Last mammogram was performed 5 year(s) and 9 month(s) ago. Patient History: Menarche at age 7. First Full-Term at age 12. Postmenopausal. 10/14/2000, Excisional Biopsy on the Right side. 10/14/2000, Excisional Biopsy on the Right side. Risk Values: Fernanda 5 year model risk: 1.6%. NCI Lifetime model risk: 8.9%. Prior Study Comparison: 01/04/2014 Left Diagnostic Mammogram, [facility]. 07/11/2014 Left Diagnostic Mammogram, [facility]. 02/03/2017 Bilateral Screening Mammogram, [facility]. Tissue Density: The breast tissue is heterogeneously dense. This may lower the sensitivity of mammography. Findings: Analyzed By CAD. There is a 6 mm focal asymmetry upper outer quadrant approximately 12 to 13 cm from the nipple, in the left breast at posterior depth. Additional small subcentimeter nodules are also present on cc view slice 19/50 within the left breast. The right breast is without evidence for suspicious mass, calcifications or distortion. Overall Assessment: Incomplete: need additional imaging evaluation, BI-RAD 0 Management: Diagnostic Breast Ultrasound of the left breast. A clinical breast exam by your physician is recommended on an annual basis and results should be correlated with mammographic findings. [facility] will attempt to contact patient to return for supplemental views and ultrasound if indicated. Electronically signed and approved by: Juice Stoddard DO
== END | disposition home or self-care (01) ==
LOC: RADMAMWWP 13:48
PROVIDERS: ATTEND Family Medicine
DX: Z12.31 Encounter for screening mammogram for malignant neoplasm of breast (principal); Z78.0 Asymptomatic menopausal state
CPT/HCPCS: 77063; 77067

== ENCOUNTER 2022-12-31 09:24 | Day surgery (SDC) | payer MEDICARE ==
[2022-12-26 10:57] VITALS: BMI 32.0
[~2022-12-31 09:24] MED LIST changes: -DEXAMETHASONE SOD PHOSPHATE 10 MG/ML 1 ML VIAL IV ONE; -HEPARIN SODIUM,PORCINE 5,000 UNIT/ML 1 ML VIAL SQ ONE; +LIDOCAINE 1% (10MG/ML) FOR IV START INTRADERMA PRN; -LIDOCAINE 1% 20 ML VIAL (10MG/ML) FOR IV START INTRADERMA PRN; -ONDANSETRON 4 MG/2 ML VIAL IVP ONE; -SCOPOLAMINE 1.5MG/72HR PATCH TRANSDERM ONE; -ceFAZolin IN SWFI 2 GM/20 ML SYRINGE IVP ONE
[2022-12-31 10:19] LABS: Glucose,Whole Blood 119 mg/dL (70-110)
[2022-12-31 10:20] VITALS: TEMP 97.8
[2022-12-31] MEDS ORDERED: LIDOCAINE 2% INJ 20 MG/ML (2 ML VIAL) ONE (10:48)
[2022-12-31] MEDS ORDERED: PROPOFOL 10 MG/ML 20 ML VIAL IV ONE (10:48)
--- NOTE | 2022-12-31 10:57 | P.GSHP ---
History of Present Illness H&P Date: 12/31/22 Chief Complaint: Colon cancer screening 57-year-old female here today for colonoscopy. Patient says this is a routine colonoscopy. She is not sure when her last colonoscopy was. On the system it appears the last colonoscopy was in 2016. That study was normal. Patient is not aware of having polyps in the past. She describes chronic IBS symptoms. No family history of colon cancer. Past Medical History Past Medical History: Asthma, COPD, Deep Vein Thrombosis (DVT), GERD/Reflux, Hyperlipidemia, Sleep Apnea/CPAP/BIPAP Additional Past Medical History / Comment(s): chronic intermittent N/V due to vasovagal bradycardia. Other hx: Antral gastritis, IBS, benign colon polyp, mild hepatomegaly/hepatic steatosis, nephrolithiasis, DVT L leg post op, recently tx for L sciatica, LEODAN not currently using Cpap, Louis's palsey, "borderline diabetic" History of Any Multi-Drug Resistant Organisms: None Reported Past Surgical History: Breast Surgery, Cholecystectomy, Hernia Repair, Orthopedic Surgery, Tubal Ligation Additional Past Surgical History / Comment(s): L knee arthroscopy, L hand surgery to sand down calcium buildup, R breast lumpectomy x 2, Demetris, EGD, colonoscopy/benign polyp, lasik eye surgery. Past Anesthesia/Blood Transfusion Reactions: No Reported Reaction Additional Past Anesthesia/Blood Transfusion Reaction / Comment(s): no hx blood transfusion Past Psychological History: Depression, PTSD Additional Psychological History / Comment(s): dx agoraphobia. Smoking Status: Former smoker Past Alcohol Use History: None Reported Additional Past Alcohol Use History / Comment(s): started smoking at age 10 smoked 1 ppd-off and on then quit 2011 Past Drug Use History: None Reported - Past Family History Mother Family Medical History: Asthma Additional Family Medical History / Comment(s): from ruptued aa Medications and Allergies Home Medications Medication Instructions Recorded Confirmed Type Albuterol Inhaler [Ventolin Hfa 2 puff INHALATION RT-Q4H PRN 04/12/15 12/26/22 History Inhaler] DULoxetine HCL [Cymbalta] 60 mg PO BID 12/23/18 12/26/22 History Montelukast Sodium [Singulair] 10 mg PO DAILY 01/14/19 12/26/22 History Atorvastatin [Lipitor] 20 mg PO DAILY 04/07/22 12/26/22 History Diphenoxylate HCl/Atropine 2 tab PO TID 04/07/22 12/26/22 History [Lomotil 2.5-0.025 mg Tablet] Omeprazole 20 mg PO DAILY 04/07/22 12/26/22 History Ubidecarenone [Coenzyme Q10] 200 mg PO DAILY 04/07/22 12/26/22 History Ergocalciferol (Vitamin D2) 1,250 mcg PO WEEKLY 07/14/22 12/26/22 History [Drisdol (50,000 Iu)] Lactobacillus Acidophilus 1 each PO DAILY #30 capsule 07/16/22 12/26/22 Rx [Acidophilus Probiotic] Allergies Allergy/AdvReac Type Severity Reaction Status Date / Time grass pollen Allergy Wheezing Verified 12/26/22 10:50 mold Allergy Wheezing Verified 12/26/22 10:50 tree and shrub pollen Allergy Wheezing Verified 12/26/22 10:50 pravastatin AdvReac SLURRING Verified 12/26/22 10:50 OF SPEECH environmental AdvReac Wheezing Uncoded 12/26/22 10:50 Surgical - Exam Vital Signs Temp Pulse Resp BP Pulse Ox 97.8 F 67 20 125/77 97 12/31/22 10:02 12/31/22 10:02 12/31/22 10:02 12/31/22 10:02 12/31/22 10:02 Physical exam: General: Well-developed, well-nourished HEENT: Normocephalic, sclerae nonicteric Abdomen: Nontender, nondistended Extremities: No edema Neuro: Alert and oriented Results - Labs Abnormal Lab Results - Last 24 Hours (Table) 12/31/22 Range/Units 10:11 POC Glucose (mg/dL) 119 H (70-110) mg/dL Assessment and Plan (1) Colon cancer screening Narrative/Plan: Will proceed with colonoscopy at this time. Current Visit: Yes Status: Acute Code(s): Z12.11 - ENCOUNTER FOR SCREENING FOR MALIGNANT NEOPLASM OF COLON SNOMED Code(s): 487688132
--- NOTE | 2022-12-31 11:15 | P.PCN ---
Date of Procedure: 12/31/22 Procedure(s) Performed: PREOPERATIVE DIAGNOSIS: Colon cancer screening POSTOPERATIVE DIAGNOSIS: Transverse colon polyp PROCEDURE: Colonoscopy with snare polypectomy ANESTHESIA: MAC SURGEON: Stephan Cruz M.D. SPECIMENS: Transverse colon polyp ENDOSCOPIC PROCEDURE: The patient was placed on the endoscopy table in the left decubitus position. The Olympus colonoscope was inserted into the anus and passed under direct visualization to the base of the cecum. The appendiceal orifice was visualized. From that point the scope was slowly withdrawn inspecting all surfaces carefully. There were no neoplastic inflammatory or polypoid lesions throughout the cecum and ascending colon. In the transverse co nalini a 7 mm polyp was seen and removed using the snare with cautery technique. The remainder of the transverse descending sigmoid and rectum appeared normal. There is no visible diverticulosis. Digital rectal examination was normal. The patient was taken to the recovery room in stable condition per anesthesia guidelines. RECOMMENDATIONS: Resume diet. Await biopsy results. Anticipate repeat co lonoscopy 5 years.
[2022-12-31] MEDS ORDERED: LACTATED RINGERS 1,000 ML IV ONE (11:16)
[2022-12-31 11:19] VITALS: PULSE 68; RESP 16
[2022-12-31 11:36] VITALS: BP 129/84
== END 2022-12-31 12:10 | disposition home or self-care (01) ==
LOC: ORWHC2ENDO 09:24
PROVIDERS: ATTEND Surgery
DX: Z12.11 Encounter for screening for malignant neoplasm of colon (principal); D12.3 Benign neoplasm of transverse colon; J44.9 Chronic obstructive pulmonary disease, unspecified; K21.9 Gastro-esophageal reflux disease without esophagitis; E78.5 Hyperlipidemia, unspecified; G47.33 Obstructive sleep apnea (adult) (pediatric); K76.0 Fatty (change of) liver, not elsewhere classified; K29.50 Unspecified chronic gastritis without bleeding; F41.9 Anxiety disorder, unspecified; F43.10 Post-traumatic stress disorder, unspecified; K58.9 Irritable bowel syndrome, unspecified; Z99.89 Dependence on other enabling machines and devices; Z90.49 Acquired absence of other specified parts of digestive tract; Z98.890 Other specified postprocedural states; Z98.51 Tubal ligation status; Z87.891 Personal history of nicotine dependence; Z79.51 Long term (current) use of inhaled steroids; Z79.899 Other long term (current) drug therapy; Z91.048 Other nonmedicinal substance allergy status
CPT/HCPCS: 88305; 45385; J2704; J2001

== ENCOUNTER → 2023-08-07 | Outpatient (CLI) | payer MEDICARE ==
--- NOTE | 2023-08-07 15:21 | MM ---
Reason for Exam: Follow-up at short interval from prior study. Last screening mammogram was performed 9 month(s) ago. Patient History: Menarche at age 7. First Full-Term at age 12. Postmenopausal. 10/14/2000, Excisional Biopsy on the Right side. 10/14/2000, Excisional Biopsy on the Right side. Risk Values: Fernanda 5 year model risk: 1.7%. NCI Lifetime model risk: 8.6%. Tissue Density: There are scattered fibroglandular densities. Findings: Analyzed By CAD. Pattern appears symmetrical and stable. Some chronic nodularity is on the left. No suspicious mammographic abnormality within the right breast. No suspicious groups of microcalcifications, spiculated or lobular masses, architectural distortion or other secondary signs of malignancy are mammographically apparent. Overall Assessment: Incomplete: need additional imaging evaluation, BI-RAD 0 Management: Diagnostic Breast Ultrasound of the right breast. A negative mammogram report should not preclude additional follow up of suspicious palpable abnormalities. Patient should continue monthly self breast exam. A clinical breast exam by your physician is recommended on an annual basis and results should be correlated with mammographic findings. Electronically signed and approved by: Vincent Lobo D.O. Radiologis
--- NOTE | 2023-08-07 16:43 | USB ---
Reason for Exam: Follow-up at short interval from prior study. Patient History: Menarche at age 7. First Full-Term at age 12. Postmenopausal. 10/14/2000, Excisional Biopsy on the Right side. 10/14/2000, Excisional Biopsy on the Right side. Risk Values: Fernanda 5 year model risk: 1.7%. NCI Lifetime model risk: 8.6%. Technique: Method: Targeted. Prior Study Comparison: 07/11/2014 Left Diagnostic Mammogram, [facility]. 02/03/2017 Bilateral Screening Mammogram, [facility]. 10/23/2022 Bilateral MG 3D screening mammo w/cad, [facility]. Findings: The lateral section of the breast of the left breast, the axilla of the left breast and the retroareolar of the left breast were scanned. There is a 0.4 x 0.3 x 0.5 cm nearly anechoic area within the o'clock position 12 cm nipple. It appears to correlate with the previous finding. This may be more anechoic than the previous exam although this remains too small to classify. Diagnostic ultrasound of the left breast to confirm stability. Screening mammography should be performed on schedule, bilateral breasts 6 months. Overall Assessment: Probably benign, BI-RAD 3 Management: Diagnostic Breast Ultrasound of the left breast in 6 months. Screening Mammogram of both breasts in 6 months. A clinical breast exam by your physician is recommended on an annual basis and results should be correlated with mammographic findings. This exam should not preclude additional follow-up of suspicious palpable abnormalities. Results were given to the patient verbally at the time of exam. Electronically signed and approved by: Vincent Lobo D.O. Radiologis
== END | disposition home or self-care (01) ==
LOC: RADMAMWWP 14:53
PROVIDERS: ATTEND Family Medicine
DX: R92.323 Mammographic fibroglandular density, bilateral breasts (principal); Z78.0 Asymptomatic menopausal state
CPT/HCPCS: 77066; 76642; G0279; 77062

== ENCOUNTER → 2025-03-08 | Outpatient (CLI) | payer MEDICARE ==
--- NOTE | 2025-03-08 16:47 | MM ---
Reason for Exam: Screening (asymptomatic). Last mammogram was performed 1 year(s) and 7 month(s) ago. Patient History: Menarche at age 7. First Full-Term at age 12. Postmenopausal. 10/14/2000, Excisional Biopsy on the Right side. 10/14/2000, Excisional Biopsy on the Right side. Risk Values: Fernanda 5 year model risk: 1.8%. NCI Lifetime model risk: 8.2%. Prior Study Comparison: 02/03/2017 Bilateral Screening Mammogram, [facility]. 10/23/2022 Bilateral MG 3D screening mammo w/cad, [facility]. 08/07/2023 Bilateral MG 3D diag mammo w/cad [facility], [facility]. Tissue Density: There are scattered areas of fibroglandular density. Findings: Analyzed By CAD. Scattered nodularity lateral posterior left breast. There is no suspicious group of microcalcifications or new suspicious mass in either breast. Overall Assessment: Benign, BI-RAD 2 Management: Screening Mammogram of both breasts in 1 year. Patient should continue monthly self-breast exams. A clinical breast exam by your physician is recommended on an annual basis. This exam should not preclude additional follow-up of suspicious palpable abnormalities. Note on Fernanda scores and lifetime risk: 1. A Fernanda score greater than 3% is considered moderate risk. If this is the case, consider specialist referral to assess eligibility for a risk reducing agent. 2. If overall lifetime risk for the development of breast cancer is 20% or higher, the patient may qualify for future screening with alternating mammogram and breast MRI. [facility], , 03/08/2025 4:44 PM. Electronically signed and approved by: Mauro Lopez M.D. Radiologist
== END | disposition home or self-care (01) ==
LOC: RADMAMWWP 13:10
PROVIDERS: ATTEND Family Medicine
DX: Z12.31 Encounter for screening mammogram for malignant neoplasm of breast (principal); R92.323 Mammographic fibroglandular density, bilateral breasts; Z78.0 Asymptomatic menopausal state
CPT/HCPCS: 77063; 77067